=== PATIENT | female | born 1945 | race Hispanic/Latino ===

== ENCOUNTER 2020-12-24 19:40 | Emergency (ER) | payer OTHER ==
--- OUTSIDE RECORDS SUMMARY | 2020-12-24 19:44 | XMS REPORT | Continuity of Care Document ---
:1945 Author Organization [facility] t Address [address] [place] [address] Care Team Providers Name Role Phone Randy AYALA Attending Clinician Problems This patient has no known problems. Allergies, Adverse Reactions, Alerts This patient has no known allergies or adverse reactions. Medications Ordered Filled Start Stop Current Ordering Indication Dosage Frequency Signature Comments Components Source Medication Medication Date Date Medication? Clinician (SIG) Name Name Triamcinolo Triamcinolo 2020-0 Yes [place] [address] [facility] ne ne 03-04 applicatio [facility] Acetonide Acetonide 00:00: n [facility] Keflex Keflex 2019-0 2020- No [place] [address] [facility] 03-04 [facility] Mupirocin Mupirocin 2019-0 2020- No [place] [address] [facility] 03-04 applicatio [facility] n [facility] 00 [facility] Triamcinolo Triamcinolo 2020-0 Yes [place] [address] [facility] ne ne 02-27 applicatio [facility] Acetonide Acetonide 00:00: n to Mem [facility]ria 00 affected l area Outpati ent Clinics Magnesium Magnesium 2019-0 2020- No [place] [address] [facility] Oxide Oxide 6-16 06-07 [facility] 00:[facility]: [facility]00 [facility] 00 [facility] l [facility] Meclizine Meclizine 2018- Yes [place] [address] [facility] HCl HCl 1-27 as needed [facility] Losartan Losartan Yes Na [place] [address] [facility] Potassium Potassium [facility] Omeprazole Omeprazole Yes Na [place] TOME EDISON [facility] CAPSULA [facility] - TODOS LOS [facility] CARMONA l [facility] Yes Na [place] INJECT [address] [facility] [facility] KwikPen KwikPen UNITS [facility] - UNDER THE Memoria SKIN l DAILY. Outpati ent Clinics Cymbalta Cymbalta Yes Na [place] [address] [facility] Yes Na [place] [address] [facility] Gabapentin Gabapentin Yes Na [place] TOME [address] [facility] CAPSULA [facility] - POR VIA Memoria ORAL MICHAEL l [facility] Yes Na [place] [address] [facility] KwikPen KwikPen [facility] Metformin Metformin Yes Na [place] [address] [facility] HCl HCl with a [facility] - meal [facility] Atorvastati Atorvastati Yes Na [place] [address] [facility] n Calcium n Calcium [facility] BD Pen BD Pen Yes Na [facility] as [facility] Needle Aura Needle Aura directed [facility] - 2nd Gen 2nd Gen [facility] Mirtazapine Mirtazapine Yes Na [place] [address] [facility] at bedtime [facility] Omeprazole Omeprazole Yes Na [place] [address] [facility] Immunizations Ordered Filled Immunization Date Status Comments [facility] e Immunization Name Name FluCHAPARRO FluAD 2019-03-[address] [facility] Procedures This patient has no known procedures. Encounters Start End Encounter Admission Attending Care Care Encounter Source Date/Time Date/Time Type Type Clinicians Facility Department ID 2020-12-22 2020-12-22 Refill Padilla, RUST [id number] 00:00:00 00:00:00 [place] [id number] IALTY [id number] ANIAK [id number] [facility] 2020-11-20 2020-11-20 [facility] [id number] [facility] 2020-11-19 2020-11-19 [facility] [id number] 2020-11-14 2020-11-14 [facility] [id number] [facility] 2020-09-17 2020-09-17 Refdeniz Padilla, RUST [id number] 00:00:00 00:00:00 [id number] [facility] [id number] ANIAK [id number] AND DONOR[facility] 2020-09-12 2020-09-12 Out[facility] [id number] [facility] 2020-09-08 2020-09-08 Out[facility] [id number] [facility] 2020-09-04 2020-09-04 Out[facility] [id number] [facility] 2020-08-26 2020-08-26 Refdeniz Padilla, RUST [id number] 00:00:00 00:00:00 Zully Wheeler [id number] [place] [id number] [id number] 220 Building 2020-08-26 2020-08-26 [facility] [id number] [facility] 2020-06-18 2020-06-18 Out[facility] [id number] [facility] 2020-06-16 2020-06-16 [facility] [id number] [facility] 2020-06-10 2020-06-10 [facility] [id number] [facility] 2020-03-25 2020-03-25 [facility] [id number] [facility] 2020-03-11 2020-03-11 [facility] [id number] 13:20:00 13:20:00 [employer] [facility] l Medicine Outpati ent Clinics 2020-03-04 2020-03-04 [facility] [id number] 16:36:00 16:36:00 [employer] [facility] Medicine l Medicine Outpati ent Clinics 2020-02-28 2020-02-28 [facility] [id number] [address] 08:40:00 08:40:00 [employer] [facility] Medicine l Medicine Outpati ent Clinics 2020-01-25 2020-01-25 [facility] [id number] 16:10:00 16:10:00 [employer] [facility] l Medicine Outpati ent Clinics 2019-12-13 2019-12-13 [facility] [id number] 02:32:00 02:32:00 [employer] [facility] Medicine l Medicine Outpati ent Clinics 2019-11-23 2019-11-23 [facility] [id number] [address] 16[facility]59:00 16:59:00 [employer] [facility] Medicine l Medicine Outpati ent Clinics 2019-08-03 2019-08-03 [facility] [id number] 13:00:00 13:00:00 [employer] [facility] Clin[facility] 2019-07-27 2019-07-27 [facility] [id number] 09:30:00 09:30:[address] Luke s - Drive [facility] Medicine l Medicine Outpati ent Clinics 2019-06-15 2019-06-15 [facility] [id number] 15:53:00 15:53:[address] Luke s - Drive [facility] Medicine l Medicine Outpati ent Clinics 2019-06-07 2019-06-07 [facility] [id number] [address] 10:14:00 10:14:00 t [place] [employer] Luke s - Drive [facility] Medicine l Medicine Outpati ent Clinics 2019-05-03 2019-05-03 [facility] [id number] [address] 10:40:00 10:40:00 t [employer] Luke s - Drive [facility] Medicine l Medicine Outpati ent Clinics 2019-04-24 2019-04-24 [facility] [id number] [address] 09:53:00 09:53:00 t [employer] Luke s - Drive [facility] Medicine l Medicine Outpati ent Clinics 2019-04-11 2019-04-11 [facility] [id number] 13:55:00 13:55:00 t [employer] [employer] Luke s - Drive [facility] Medicine l Medicine Outpati ent Clinics 2019-03-16 2019-03-16 [facility] [id number] [address] 09:40:00 09:40:00 t [employer] [employer] Luke s - Drive [facility] Medicine l Medicine Outpati ent Clinics 2019-03-07 2019-03-07 [facility] [id number] 09:54:00 09:54:00 t [employer] [employer] Luke s - Drive [facility] Medicine l Medicine Outpati ent Clinics 2019-01-31 2019-01-31 [facility] [id number] 16:23:00 16:23:00 t [employer] Luke s - Drive [facility] Medicine l Medicine Outpati ent Clinics 2018-12-25 2018-12-25 [facility] [id number] 16:40:00 16:40:00 t Underwood [employer] s - Drive [facility] Medicine Outpati ent Clinics 2018-08-21 2018-08-21 [facility] [id number] 09:30:00 09:30:00 t Urgent [facility] Outpat[facility] Clinics 2018-07-27 2018-07-27 [facility] [id number] [address] 10:22:00 10:22:00 t [facility] Outpati ent Clinics 2018-06-29 2018-06-29 [facility] [id number] 13:35:00 13:35:00 [facility] Outpati ent Clinics 2018-06-07 2018-06-07 [facility] [id number] [facility] 13:16:00 13:16:00 t [facility] Outpati ent Clinics 2018-05-23 2018-05-23 [facility] [id number] [facility] 09:30:00 09:30:00 t [facility] Outpati ent Clinics Results This patient has no known results.
[2020-12-24 22:04] LABS: Basophils % 0.5 % (0-1.3); Hematocrit 31.7 % (36.0-45.0); MPV 8.3 fL (7.6-11.3); RBC Red Blood Cell Count 3.65 M/uL (3.86-4.86)
[2020-12-24] MEDS ORDERED: NA CHLORIDE 0.9% 1,000 ML ONE ×2 (22:10→23:08)
[2020-12-24 22:25] LABS: Albumin 3.3 g/dL (3.4-5.0); Bilirubin Direct 0.2 mg/dL (0-0.2); Bilirubin Total 0.6 mg/dL (0.2-1.0)
[2020-12-24] MEDS ORDERED: INSULIN -REGULAR HUMAN 50 UNIT/0.5 ML ML ONE (23:08)
[2020-12-24 23:09] LABS: Blood Morphology Comment NOT SEEN (NOT SEEN); Platelet Estimate ADEQ
--- NOTE | 2020-12-25 01:28 | ER ---
Nurse's Notes [facility] Name: Karina Jimenez Age: 75 yrs Sex: Female : 1945 Arrival Date: 12/24/2020 Time: 19:42 Bed 6 Private MD: Diagnosis: Diabetes mellitus due to underlying condition with hyperglycemia Presentation: 12/24 19:56 Chief complaint: Patient's son or daughter states: hyperglycemia, non-compliant, FSBS bs2 at home 478. Coronavirus screen: Client denies travel out of the [place] in the last 14 days. At this time, the client does not indicate any symptoms associated with coronavirus-19. Ebola Screen: Patient negative for fever greater than or equal to 101.5 degrees Fahrenheit, and additional compatible Ebola Virus Disease symptoms Patient denies exposure to infectious person. Patient denies travel to an Ebola-affected area in the 21 days before illness onset. Initial Sepsis Screen: Does the patient meet any 2 criteria? No. Patient's initial sepsis screen is negative. Does the patient have a suspected source of infection? No. Patient's initial sepsis screen is negative. Risk Assessment: Do you want to hurt yourself or someone else? Patient reports no desire to harm self or others. Onset of symptoms is unknown. 19:56 Method Of Arrival: EMS: [facility] bs2 19:56 Acuity: JESICA 3 bs2 Triage Assessment: 19:59 General: Appears in no apparent distress. comfortable, Behavior is calm, cooperative, bs2 appropriate for age. Pain: Denies pain. Historical: - Allergies: 19:59 No Known Allergies; bs2 - Home Meds: 19:59 atorvastatin Oral [Active]; duloxetine Oral [Active]; losartan Oral [Active]; Metformin bs2 Oral [Active]; Omeprazole Oral [Active]; Tylenol #3 Oral [Active]; Basaglar KwikPen U-100 Insulin 100 unit/mL (3 mL) subcutaneous inpn [Active]; - PMHx: 19:59 Diabetes - IDDM; Hyperlipidemia; Hypertension; depression; bs2 - PSHx: 19:59 Cholecystectomy; bs2 - Immunization history:: Client reports receiving the 2nd dose of the Covid vaccine. - Social history:: Smoking status: Patient denies any tobacco usage or history of. - Family history:: not pertinent. Screenin:10 Abuse screen: Denies threats or abuse. Nutritional screening: No deficits noted. ea Tuberculosis screening: No symptoms or risk factors identified. Fall Risk None identified. Assessment: 22:11 General: Appears in no apparent distress. Behavior is calm, cooperative, appropriate ea for age. Pain: Denies pain. Neuro: Level of Consciousness is awake, alert, obeys commands, Oriented to person, place, situation. Cardiovascular: Patient's skin is warm and dry. Respiratory: Airway is patent Respiratory effort is even, unlabored, Respiratory pattern is regular, symmetrical. Derm: Skin is pink, warm \T\ dry. 23:10 Reassessment: Patient and/or family updated on plan of care and expected duration. Pain ea level reassessed. Patient is alert, oriented x 3, equal unlabored respirations, skin warm/dry/pink. 12/25 00:07 Reassessment: Patient and/or family updated on plan of care and expected duration. Pain ea level reassessed. Patient is alert, oriented x 3, equal unlabored respirations, skin warm/dry/pink. 01:30 Reassessment: Patient and/or family updated on plan of care and expected duration. Pain ea level reassessed. Patient is alert, oriented x 3, equal unlabored respirations, skin warm/dry/pink. 02:33 Reassessment: Patient and/or family updated on plan of care and expected duration. Pain ea level reassessed. Patient is alert, oriented x 3, equal unlabored respirations, skin warm/dry/pink. 02:47 Reassessment: Patient and/or family updated on plan of care and expected duration. Pain ea level reassessed. Patient is alert, oriented x 3, equal unlabored respirations, skin warm/dry/pink. Discharge instruction given to patient verbalized the understanding of instruction. Pt left ED via wheelchair per family, pt tolerating well. Vital Signs: 12/24 19:56 BP 103 / 47; Pulse 85; Resp 18; Temp 98.8; Pulse Ox 98% ; Weight 73.48 kg (R); Height 4 bs2 ft. 11 in. (149.86 cm) (R); Pain 0/10; 23:10 BP 102 / 44; Pulse 67; Resp 19; Pulse Ox 100% ; ea 12/25 00:32 BP 97 / 52; Pulse 67; Resp 18; Pulse Ox 99% ; ea 02:33 BP 105 / 65; Pulse 60; Resp 18; Pulse Ox 98% on R/A; ea 12/24 19:56 Body Mass Index 32.72 (73.48 kg, 149.86 cm) bs2 ED Course: 12/24 19:42 Patient arrived in ED. mw2 19:59 Triage completed. bs2 19:59 Arm band placed on left wrist. bs2 21:39 Agustina Hernandez MD is Attending Physician. ma2 21:45 Niyah Whittington RN is Primary Nurse. ea 22:11 Patient has correct armband on for positive identification. Bed in low position. Call ea light in reach. 22:11 Inserted saline lock: 20 gauge in right antecubital area, using aseptic technique. ea Blood collected. 22:42 Chest Single View XRAY In Process Unspecified. EDMS 22:45 CT Head Brain wo Cont In Process Unspecified. EDMS 12/25 02:33 No provider procedures requiring assistance completed. ea 02:47 IV discontinued, intact, bleeding controlled, No redness/swelling at site. Pressure ea dressing applied. Administered Medications: 12/24 22:10 Drug: NS 0.9% 1000 ml Route: IV; Rate: 1 bolus; Site: right antecubital; ea 12/25 02:32 Follow up: Response: No adverse reaction; IV Status: Completed infusion; IV Intake: ea 1000ml 12/24 22:57 Drug: Insulin Regular Human 7 units {Co-Signature: tl1 (Sharda Clark RN).} Route: IVP; ea Site: right antecubital; 12/25 02:32 Follow up: Response: No adverse reaction ea 12/24 22:57 Drug: NS 0.9% 1000 ml Route: IV; Rate: 1 bolus; Site: right antecubital; ea 12/25 01:30 Follow up: Response: No adverse reaction; IV Status: Completed infusion; IV Intake: ea 1000ml 02:32 Drug: Rocephin (cefTRIAXone) 1 grams Route: IV; Rate: calculated rate; Site: right ea antecubital; 02:47 Follow up: Response: No adverse reaction; IV Status: Completed infusion ea Intake: 01:30 IV: 1000ml; Total: 1000ml. ea 02:32 IV: 1000ml; Total: 2000ml. ea Outcome: 01:27 Discharge ordered by . ma2 02:47 Discharged to home via wheelchair, with family. ea 02:47 Condition: stable 02:47 Discharge instructions given to patient, Instructed on discharge instructions, follow up and referral plans. medication usage, Demonstrated understanding of instructions, follow-up care, medications, Prescriptions given X 1. 02:48 Patient left the ED. ea Signatures: Dispatcher [employer] EDNiyah Johnson, RN RN Agustina Spann MD MD ma2 Wendy Wright2 Patti Armstrong bs2 Sharda Clark RN tl1
--- NOTE | 2020-12-25 01:28 | EDPHYS ---
Physician Documentation [facility] Name: Karina Jimenez Age: 75 yrs Sex: Female : 1945 Arrival Date: 12/24/2020 Time: 19:42 Bed 6 Private MD: ED Physician Agustina Hernandez HPI: 12/24 23:29 This 75 yrs old Female presents to ER via EMS with complaints of High Blood ma2 Sugar. 23:29 Onset: The symptoms/episode began/occurred gradually, 1 day(s) ago. Associated signs ma2 and symptoms: Pertinent negatives: anorexia, diarrhea, ketones in urine, polydipsia. Current symptoms: In the emergency department the patient's symptoms have improved. The patient has experienced similar episodes in the past, not compliant on her medication . Historical: - Allergies: 19:59 No Known Allergies; bs2 - Home Meds: 19:59 atorvastatin Oral [Active]; duloxetine Oral [Active]; losartan Oral [Active]; Metformin bs2 Oral [Active]; Omeprazole Oral [Active]; Tylenol #3 Oral [Active]; Basaglar KwikPen U-100 Insulin 100 unit/mL (3 mL) subcutaneous inpn [Active]; - PMHx: 19:59 Diabetes - IDDM; Hyperlipidemia; Hypertension; depression; bs2 - PSHx: 19:59 Cholecystectomy; bs2 - Immunization history:: Client reports receiving the 2nd dose of the Covid vaccine. - Social history:: Smoking status: Patient denies any tobacco usage or history of. - Family history:: not pertinent. ROS: 23:29 Constitutional: Negative for fever, chills, and weight loss. ma2 23:29 All other systems are negative. Exam: 23:29 Constitutional: This is a well developed, well nourished patient who is awake, alert, ma2 and in no acute distress. Chest/axilla: Normal chest wall appearance and motion. Nontender with no deformity. No lesions are appreciated. Cardiovascular: Regular rate and rhythm with a normal S1 and S2. No gallops, murmurs, or rubs. Normal PMI, no JVD. No pulse deficits. Respiratory: Lungs have equal breath sounds bilaterally, clear to auscultation and percussion. No rales, rhonchi or wheezes noted. No increased work of breathing, no retractions or nasal flaring. Abdomen/GI: Soft, non-tender, with normal bowel sounds. No distension or tympany. No guarding or rebound. No evidence of tenderness throughout. MS/ Extremity: Pulses equal, no cyanosis. Neurovascular intact. Full, normal range of motion. Neuro: Awake and alert, GCS 15, oriented to person, place, time, and situation. Cranial nerves II-XII grossly intact. Motor strength 5/5 in all extremities. Sensory grossly intact. Cerebellar exam normal. Normal gait. Vital Signs: 19:56 BP 103 / 47; Pulse 85; Resp 18; Temp 98.8; Pulse Ox 98% ; Weight 73.48 kg (R); Height 4 bs2 ft. 11 in. (149.86 cm) (R); Pain 0/10; 23:10 BP 102 / 44; Pulse 67; Resp 19; Pulse Ox 100% ; ea 12/25 00:32 BP 97 / 52; Pulse 67; Resp 18; Pulse Ox 99% ; ea 02:33 BP 105 / 65; Pulse 60; Resp 18; Pulse Ox 98% on R/A; ea 12/24 19:56 Body Mass Index 32.72 (73.48 kg, 149.86 cm) 2 MDM: 12/24 22:09 Patient medically screened. [facility] 23:29 Differential diagnosis: diabetes insipidus, DKA, hyperglycemia, hypoglycemic episode. [facility] 12/25 01:25 Data reviewed: vital signs, nurses notes. Counseling: I had a detailed discussion with [facility] the patient and/or guardian regarding: the historical points, exam findings, and any diagnostic results supporting the discharge/admit diagnosis, the presence of at least one elevated blood pressure reading (>120/80) during this emergency department visit, the need for outpatient follow up. Response to treatment: the patient's symptoms have markedly improved after treatment. 12/24 21:39 Order name: Basic Metabolic Panel; Complete Time: 22:31 [facility] 12/24 21:39 Order name: CBC with Diff; Complete Time: 23:29 [facility] 12/24 21:39 Order name: Hepatic Function; Complete Time: 22:31 [facility] 12/24 21:39 Order name: Lipase; Complete Time: 22:31 [facility] 12/24 22:05 Order name: Manual Differential; Complete Time: 23:29 EDMS 12/24 22:10 Order name: Lactate; Complete Time: 01:27 ak2 12/24 22:10 Order name: CT Head Brain wo Cont [facility] 12/24 22:10 Order name: Chest Single View XRAY [facility] 12/24 22:10 Order name: Procalcitonin; Complete Time: 23:29 ak2 12/25 02:23 Order name: Urine Dipstick-Ancillary [facility] 12/25 02:41 Order name: Glucose, Ancillary Testing [facility] 12/24 21:39 Order name: IV Saline Lock; Complete Time: 22:10 ak2 12/24 21:39 Order name: Labs collected and sent; Complete Time: 22:10 [facility] 12/24 22:10 Order name: Urine Dipstick-Ancillary (obtain specimen); Complete Time: 02:47 [facility] Administered Medications: 12/24 22:10 Drug: NS 0.9% 1000 ml Route: IV; Rate: 1 bolus; Site: right antecubital; 12/25 02:32 Follow up: Response: No adverse reaction; IV Status: Completed infusion; IV Intake: ea 1000ml 12/24 22:57 Drug: Insulin Regular Human 7 units {Co-Signature: tl1 (Sharda Clark RN).} Route: IVP; Site: right antecubital; 12/25 02:32 Follow up: Response: No adverse reaction 12/24 22:57 Drug: NS 0.9% 1000 ml Route: IV; Rate: 1 bolus; Site: right antecubital; 12/25 01:30 Follow up: Response: No adverse reaction; IV Status: Completed infusion; IV Intake: ea 1000ml 02:32 Drug: Rocephin (cefTRIAXone) 1 grams Route: IV; Rate: calculated rate; Site: right ea antecubital; 02:47 Follow up: Response: No adverse reaction; IV Status: Completed infusion ea Disposition Summary: 12/25/20 01:27 Discharge Ordered Location: Home ma2 Condition: Stable ma2 Diagnosis - Diabetes mellitus due to underlying condition with hyperglycemia ma2 Followup: ma2 - With: Private Physician - When: Tomorrow - Reason: If symptoms return, Continuance of care Discharge Instructions: - Discharge Summary Sheet ma2 - Hyperglycemia ma2 Forms: - Medication Reconciliation Form ma2 - Thank You Letter ma2 - Antibiotic Education ma2 - Prescription Opioid Use ma2 Prescriptions: - Bactrim DS 800-160 mg Oral Tablet - take 1 tablet by ORAL route every 12 hours for 5 days; 10 tablet; Refills: 0, ma2 Product Selection Permitted Signatures: Dispatcher [employer] Niyah Khoury, RN RN Agustina Spann MD MD ma2 Patti Armstrong 2 Sharda Clark RN tl1
[2020-12-25 02:24] LABS: Urine Blood Trace-intact (Negative); Urine Glucose 2+ (Negative); Urine Protein 2+ (Negative); Urine Specific Gravity 1.015 (1.005-1.030)
[2020-12-25] MEDS ORDERED: CEFTRIAXONE/SWI 1gm 1 GM/10 ML SYR ONE (02:46)
[2020-12-25 03:08] VITALS: TEMP 98.8
[2020-12-25 03:11] VITALS: BP 105/65; O2SAT 98
--- NOTE | 2020-12-25 09:04 | RAD REPORT ---
EXAM DESCRIPTION: RAD - Chest Single View - 12/24/2020 10:42 pm CLINICAL HISTORY: CONGESTION Chest pain. COMPARISON: <Comparisons> FINDINGS: Portable technique limits examination quality. Mild linear atelectasis is present in the left lung base laterally. The lungs are otherwise clear. Th e heart is upper limit of normal in size. No displaced fractures.
--- NOTE | 2020-12-25 10:27 | RAD REPORT ---
EXAM DESCRIPTION: CT HEAD WITHOUT IV CONTRAST CLINICAL HISTORY: CONFUSED TECHNIQUE: Contiguous axial CT images obtained through the brain without IV contrast. Coronal and sa gittal reformatted images were provided. This exam was performed according to our departmental dose-optimization program, which includes autom ated exposure control, adjustment of the mA and/or kV according to patient size and/or use of iterati ve reconstruction technique. COMPARISON: 10/16/2016 FINDINGS: Brain: Mild cerebral atrophy and mild bilateral periventricular and subcortical white deidra er low-attenuation most compatible with chronic microvascular angiopathy without significant interval change. No focal mass effect. Jackson-white matter differentiation is within normal limits. No hemorrha ge. Ventricles: No ventriculomegaly or midline shift. Extra-axial spaces: No extra-axial collection or hemorrhage. Paranasal sinuses and mastoid air cells: Well-aerated Vessels: There is atherosclerotic disease of the internal carotid arteries bilaterally and right vert ebral artery. Bones: Unremarkable Soft tissues: Unremarkable IMPRESSION: 1. No acute hemorrhage, focal mass or large territory infarction. 2. Other findings as above. Electronically signed by: Rodrigo Poon MD 12/24/2020 11:04 PM CDT Due to temporary technical issues with the PACS/Fluency reporting system, reports are being signed by the in house radiologist without review as a courtesy to ensure prompt reporting. The interpreting r adiologist is fully responsible for the content of the report.
== END 2020-12-25 02:48 | disposition home or self-care (01) ==
LOC: ER 19:40
DX: E11.65 Type 2 diabetes mellitus with hyperglycemia (principal); Z79.4 Long term (current) use of insulin; I10 Essential (primary) hypertension
CPT/HCPCS: 96361; 85025; 80048; 36415; 82947; 80076; 83605; 81003; 83690; 84145; 70450; 71045; 96375; 96374; 99284; J0696; J7030 ×2

== ENCOUNTER 2021-12-13 17:24 | Emergency (ER) | payer OTHER ==
--- OUTSIDE RECORDS SUMMARY | 2021-12-13 17:28 | XMS REPORT | Continuity of Care Document ---
:1945 Author Organization [facility] t Address [address] [place] [address] Care Team Providers Name Role Phone Nancy Meadows Primary Care Physician Susy Meadows Attending Clinician Unavailable Daniel NGO Attending Clinician Doctor Unassigned, Name Attending Clinician Unavailable Randy AYALA Attending Clinician Payers Payer Name Policy Type Policy Number Effective Date Expiration Date S ource Problems Condition Condition Condition Status Onset Resolution Last Treating Co mments Source Name Details Category Date Date Treatment Clinician Date Dyslipidem Dyslipidem Disease Active 2018 U nivers ia ia 3-19 ity of 00:00: [address] Essential Essential Disease Active Uni vers hypertensi hypertensi 3-19 it y of on on 00:00: [address] Type 2 Type 2 Disease Active 2016-06 Univers diabetes, diabetes, 1-15 ity of uncontroll uncontroll [place], with 00 Medica l neuropathy neuropathy Br anch Allergies, Adverse Reactions, Alerts This patient has no known allergies or adverse reactions. Social History Social Habit Start Date Stop Date Quantity Comments Source Exposure to 2021-11-24 2021-12-[address] [facility]-CoV-2 00:00:00 14:12:00 [facility] (event) Branch Alcohol intake 2021-10-16 2021-10-16 Lifetime University of 00:00:00 00:00:00 non-drinker [place] [facility] (finding) Branch Tobacco use and 2017-05-11 2017-05-11 Never used Universit y of exposure 00:00:00 00:00:00 [facility] Sex Assigned At [birth year] Universit y of 00:00:00 00:00:00 [facility] Smoking Status Start Date Stop Date Source Never smoker [facility] Branch Medications Ordered Filled Start Stop Current Ordering Indication Dosage Frequency Signature Comments Components Source Medication Medication Date Date Medication? Clinician (SIG) Name Name losartan 2021- No 100mg Take 100 Uni vers 100 mg 6-10 06-10 mg by ity of tablet 14:38: 00:00 mouth [place] 18 :00 daily. Medical Branch gabapentin Yes 100mg Take 100 Un abhijit 100 mg 6-10 mg by ity of capsule 14:33: mouth 3 [place] 18 (three) Medical times Branch daily. gabapentin 0 Yes 100mg Take 100 Un abhijit 100 mg 6-10 mg by ity of capsule 14:33: mouth 3 [place] 18 (three) Medical times Branch daily. gabapentin Yes 100mg Take 100 Un abhijit 100 mg 6-10 mg by ity of capsule 14:33: mouth 3 [place] 18 (three) Medical times Branch daily. semaglutide Yes [id number] Inject 1 Univers (OZEMPIC) 1 6-10 mg weekly ity of mg/dose (4 00:00: [place] mg/3 mL) 00 Medical PnIj Branch Insulin Yes [id number] INJECT 72 U nivers Glargine 6-10 UNITS ity of (BASAGLAR 00:00: UNDER THE [place] KWIKPEN 00 SKIN Medical U-100 DAILY. Branch INSULIN) 100 unit/mL (3 mL) injection metFORMIN Yes [id number] Take one Univers 1,000 mg 6-10 tablet by ity of tablet 00:00: mouth [place] 00 daily with Medical breakfast Branch atorvastati Yes [id number] 20mg Take 1 Univers n 20 mg 6-10 tablet by ity of tablet 00:00: mouth at [place] 00 bedtime. Medical Branch losartan 2021-0 Yes [id number] 100mg Take 1 Un abhijit 100 mg 6-10 tablet by ity of tablet 00:00: mouth 00 daily. Medical Branch semaglutide Yes [id number] Inject 1 Univers (OZEMPIC) 1 6-10 mg weekly ity of mg/dose (4 00:00: [place] mg/3 mL) 00 Medical PnIj Branch Insulin Yes [id number] INJECT 72 U nivers Glargine 6-10 UNITS ity of (BASAGLAR 00:00: UNDER THE [place] KWIKPEN 00 SKIN Medical U-100 DAILY. Branch INSULIN) 100 unit/mL (3 mL) injection metFORMIN Yes [id number] Take one Univers 1,000 mg 6-10 tablet by ity of tablet 00:00: mouth 00 daily with Medical breakfast Branch atorvastati Yes [id number] 20mg Take 1 Univers n 20 mg 6-10 tablet by ity of tablet 00:00: mouth at [place] 00 bedtime. Medical Branch losartan Yes [id number] 100mg Take 1 Un abhijit 100 mg 6-10 tablet by ity of tablet 00:00: mouth daily. Medical Branch DICLOFENAC Yes [id number] APPLY 2 Univers SODIUM 1 % 5-23 GRAMS TO ity o f gel 00:00: AFFECTED 00 AREA(S) ON Medical SKIN DOS Branch VECES AL SHEEBA CUANDO SEA NECESARIO PARA EL DOLOR DICLOFENAC Yes [id number] APPLY 2 Univers SODIUM 1 % 5-23 GRAMS TO ity o f gel 00:00: AFFECTED 00 AREA(S) ON Medical SKIN DOS Branch VECES AL SHEEBA CUANDO SEA NECESARIO PARA EL DOLOR DICLOFENAC Yes [id number] APPLY 2 Univers SODIUM 1 % 5-23 GRAMS TO ity o f gel 00:00: AFFECTED 00 AREA(S) ON Medical SKIN DOS Branch VECES AL SHEEBA CUANDO SEA NECESARIO PARA EL DOLOR Nitrofurant 2021- No [id number] 100mg Take 1 Univers oin&Nit. 4-19 06-10 capsule by ity of Macrocryst 00:00: 00:00 mouth 2 [place] (MACROBID) 00 :00 (two) Medical 100 mg times Branch capsule daily. semaglutide 2021- No [id number] inject 1 Univers (OZEMPIC) 1 4-07 06-10 mg base ity of mg/dose (4 00:00: 00:00 [place] mg/3 mL) 00 :00 skin Medical PnIj weekly. Branch omeprazole 2020-06 Yes 20mg Take 20 mg U nivers 20 mg 0-15 by mouth ity of capsule 15:03: daily. [address] omeprazole 2020-06 Yes 20mg Take 20 mg U nivers 20 mg 0-15 by mouth ity of capsule 15:03: daily. [address] omeprazole 2020-06 Yes 20mg Take 20 mg U nivers 20 mg 0-15 by mouth ity of capsule 15:03: daily. [address] DULoxetine 2020-06 Yes 30mg Take 30 mg U nivers 30 mg 0-15 by mouth ity of capsule 15:03: daily. [address] DULoxetine 2020-06 Yes 30mg Take 30 mg U nivers 30 mg 0-15 by mouth ity of capsule 15:03: daily. [address] DULoxetine 2020-06 Yes 30mg Take 30 mg U nivers 30 mg 0-15 by mouth ity of capsule 15:03: daily. [address] mirtazapine 2020-06 Yes [id number] 15mg Take 15 mg Univers 15 mg 0-15 by mouth ity of tablet 15:03: at [place] [address] bedtime. [facility] mirtazapine 2020-06 Yes [id number] 15mg Take 15 mg Univers 15 mg 0-15 by mouth ity of tablet 15:03: at [place] [address] bedtime. [facility] mirtazapine 2020-06 Yes [id number] 15mg Take 15 mg Univers 15 mg 0-15 by mouth ity of tablet 15:03: at [place] [address] bedtime. [facility] aspirin 81 2020-06 Yes [id number] 81mg Take 81 mg Univers mg chewable 0-15 by mouth ity of tablet 15:03: daily. [address] aspirin 81 2020-06 Yes [id number] 81mg Take 81 mg Univers mg chewable 0-15 by mouth ity of tablet 15:03: daily. [address] aspirin 81 2020-06 Yes [id number] 81mg Take 81 mg Univers mg chewable 0-15 by mouth ity of tablet 15:03: daily. [place] 10 Medical Branch Insulin 2020-06- No [id number] INJECT 68 Univers Glargine 0-15 06-10 UNITS ity of (BASAGLAR 00:00: 00:00 [place] KWIK[place]EN 00 :00 SKIN Medical U-100 DAILY. Branch INSULIN) 100 unit/mL (3 mL) injection metFORMIN 2020-06- No Take one Uni vers 1,000 mg 0-15 06-10 tablet by ity o f tablet 00:00: 00:00 mouth [place] 00 :00 daily with Medical breakfast Branch magnesium 2020-0 Yes 400mg Take 400 Uni vers oxide 400 9-03 mg by ity of mg (241.3 13:20: mouth [place] mg 06 daily. Medical magnesium) Branch tablet magnesium 0 Yes 400mg Take 400 Uni vers oxide 400 9-03 mg by ity of mg (241.3 13:20: mouth [place] mg 06 daily. Medical magnesium) Branch tablet magnesium 0 Yes 400mg Take 400 Uni vers oxide 400 9-03 mg by ity of mg (241.3 13:20: mouth [place] mg 06 daily. Medical magnesium) Branch tablet flash Yes 1{each} 1 Each Univers glucose 9-03 daily. Dx ity of scanning 00:00: E11.65 [place] reader 00 Medical (FREESTYLE Branch RAMÓN 2 READER) Misc flash 2020- Yes 1{each} Apply 1 Univer s glucose 9-03 Each to ity of sensor 00:00: skin every (FREESTYLE 00 14 Medical RAMÓN 2 (fourteen) Branch SENSOR) Kit days. Dx E11.65 flash 2020-0 Yes 1{each} 1 Each Univers glucose 9-03 daily. Dx ity of scanning 00:00: E11.65 [place] reader 00 Medical (FREESTYLE Branch RAMÓN 2 READER) Misc flash 2020-0 Yes 1{each} Apply 1 Univer s glucose 9-03 Each to ity of sensor 00:00: skin every [place] (FREESTYLE 00 14 Medical RAMÓN 2 (fourteen) Branch SENSOR) Kit days. Dx E11.65 flash 2020-0 Yes 1{each} 1 Each Univers glucose 9-03 daily. Dx ity of scanning 00:00: E11.65 [place] reader 00 Medical (FREESTYLE Branch RAMÓN 2 READER) Misc flash 2021-0 Yes 1{each} Apply 1 Univer s glucose 03 Each to ity of sensor 00:00: skin every (FREESTYLE 00 14 Medical RAMÓN 2 (fourteen) Branch SENSOR) Kit days. Dx E11.65 atorvastati 2020-0 2021- No 20mg Take 1 Uni vers n 20 mg 716 06-10 tablet by ity of tablet 00:00: 00:00 mouth at [place] 00 :00 bedtime. Medical Branch [facility] 2019-0 Yes Na Meadows 1 Common ne ne 03-04 applicatio Spirit Acetonide Acetonide 00:00: n - C HI 00 [facility] Keflex Keflex 2019-0 2020- No Na Meadows 1 capsule Common 03-04 Spirit 00:00: 00:00 - CHI 00 :00 [facility] Mupirocin Mupirocin 2019-0 2020- No Na Meadows 1 Common 03-04 applicatio Spirit 00:00: 00:00 n - CHI 00 :00 [facility] 2019-0 Yes Na Meadows 1 Common ne ne 02-27 applicatio Spirit Acetonide Acetonide 00:00: n to - C HI 00 affected [facility] Insulin 2020-0 Yes [id number] Use as Univ ers [place], 8-04 directed ity of Disposable, 00:00: [place] (SURYA PEN E11.9 Medical NEEDLE) 32 Branch gauge x 5/32" Ndle Insulin 2020-0 Yes [id number] Use as Univ ers [place], 8-04 directed ity of Disposable, 00:00: daily [place] (SURYA PEN E11.9 Medical NEEDLE) 32 Branch gauge x 5/32" Ndle Insulin 2020-0 Yes [id number] Use as Univ ers [place], 8-04 directed ity of Disposable, 00:00: daily [place] (SURYA PEN E11.9 Medical NEEDLE) 32 Branch gauge x 5/32" Ndle Magnesium Magnesium 2020-0 2020- No Na Meadows 1 tablet Common Oxide Oxide 6-16 12-12 Spirit 00:00: 00:00 - CHI 00 :00 [facility] Lancets 2018-1 Yes Use as Univers Misc 1-30 directed ity of 00:00: TID DX: [place] 00 E11.9 Medical Branch Lancets 2018- Yes Use as Univers Misc 1-30 directed ity of 00:00: TID DX: [place] E11.9 Medical Branch Lancets 2018- Yes Use as Univers Misc 1-30 directed ity of 00:00: TID DX: [place] E11.9 Medical Branch Meclizine Meclizine 2018- Yes Na Meadows 1 tablet Common HCl HCl 1-27 as needed Spirit 00:00: - CHI 00 [facility] Losartan Losartan Yes Na Meadows 1 tablet Common Potassium Potassium Spiri [facility] Omeprazole Omeprazole Yes Na Meadows TOME EDISON Common CAPSULA Spirit TODOS [facility] Yes Na Meadows INJECT 60 Common KwikPen KwikPen UNITS Spirit UNDER THE - CHI SKIN [facility] Cyalta Yes Na Meadows 1 capsule Common [facility] Yes Na Meadows 1 Common [facility] Gabapentin Gabapentin Yes Na Meadows TOME 1 Common CAPSULA Spirit POR VIA - CHI ORAL MICHAEL St VECES [facility] Yes Na Meadows 62 units Common KwikPen KwikPen [facility] Metformin Metformin Yes Na Meadows 1 tablet Common HCl HCl with a Spirit meal [facility] Atorvastati Atorvastati Yes Na Meadows 1 tablet Common n Calcium n Calcium Spiri [facility] BD Pen BD Pen Yes Na Meadows as Common Needle Surya Needle Surya directed Spirit 2nd Gen 2nd Gen [facility] Mirtazapine Mirtazapine Yes Na Meadows 1 tablet Common at bedtime [facility] Omeprazole Omeprazole Yes Na Meadows 1 capsule Common [facility] Immunizations Ordered Filled Immunization Date Status Comments Sour e Immunization Name Name SARS-COV-2 COVID-19 2020-07-30 Completed Unive rsity of MODERNA VACCINE 00:00:00 [facility] SARS-COV-2 COVID-19 2020-07-30 Completed Unive rsity of MODERNA VACCINE 00:00:00 [place] Med ical Branch SARS-COV-2 COVID-19 2020-07-30 Completed Unive rsity of MODERNA VACCINE 00:00:00 [facility] Branch SARS-COV-2 COVID-19 2020-07-02 Completed Unive rsity of MODERNA VACCINE 00:00:00 [facility] Branch SARS-COV-2 COVID-19 2020-07-02 Completed Unive rsity of MODERNA VACCINE 00:00:00 [facility] Branch SARS-COV-2 COVID-19 2020-07-02 Completed Unive rsity of MODERNA VACCINE 00:00:00 [facility] FluAD FluAD 2019-03-16 Completed Common Spirit - 00:00:00 [facility] Vital Signs Vital Name Observation Time Observation Value Comments Source Systolic blood 2021-12-04 19:23:00 109 mm[Hg] Univer sity [facility] Diastolic blood 2021-12-04 19:23:00 71 mm[facility]Hg] [facility] Body height 2021-12-04 19:23:[address] [facility] Body weight 2021-12-04 19:23:[address] [facility] BMI 2021-12-04 19:23:00 36.10 kg/m2 [facility] Oxygen saturation 2021-12-04 19:23:00 96 /min [facility] in Arterial blood [facility] by Pulse oximetry Procedures Procedure Date / Time Performed Performing Clinician [facility] e POCT HEMOGLOBIN A1C 2021-12-04 19:29:00 Mely Sanchez [facility] TEST [facility] PHYSICIAN ORDERS 2021-11-19 05:01:00 Doctor Unassigned, No Unive rsity of [facility] Encounters Start End Encounter Admission Attending Care Care Encounter Source Date/Time Date/Time Type Type Clinicians Facility Department ID 2021-10-20 [id number] Common 09:42:01 [facility] 2021-10-13 [facility] [id number] Common 09:44:01 [facility] 2021-08-07 Outpatient Meadows, Na STLMLC STLMLC [id number] 2 Common 11:32:00 [facility] 2021-08-03 Outpatient Meadows, Na STLMLC STLMLC [id number] 2 Common 14:29:01 [facility] 2021-07-29 Outpatient Meadows, Na STLMLC STLMLC [id number] 2 Common 15:09:01 [facility] 2021-07-22 Outpatient Meadows, Na STLMLC STLMLC [id number] 2 Common 12:49:36 [id number] [facility] 2021-07-22 Outpatient Meadows, Na STLMLC STLMLC [id number] 2 Common 12:43:02 [id number] [facility] 2021-07-22 Outpatient Meadows, Na STLMLC STLMLC [id number] 2 Common 12:39:59 [id number] [facility] 2021-07-22 Outpatient Meadows, Na STLMLC STLMLC [id number] 2 Common 12:39:45 [id number] [facility] 2021-07-22 Outpatient Meadows, Na STLMLC STLMLC [id number] 2 Common 12:13:12 [id number] [facility] 2021-07-22 Outpatient Meadows, Na STLMLC STLMLC [id number] 2 Common 12:12:47 [id number] [facility] 2021-07-22 Outpatient Meadows, Na STLMLC STLMLC [id number] 2 Common 11:46:09 [id number] [facility] 2021-07-22 Outpatient Meadows, Na STLMLC STLMLC [id number] 2 Common 11:45:18 [id number] [facility] 2021-07-22 Outpatient Meadows, Na STLMLC STLMLC [id number] 2 Common 11:26:16 [id number] [facility] 2021-07-22 Outpatient Meadows, Na STLMLC STLMLC [id number] 2 Common 11:05:41 [id number] [facility] 2021-12-06 2021-12-06 [facility]phone [facility] [id number] Univers 00:00:00 00:00:00 [facility] [id number] ity of [place] [id number] [place] [id number] [facility] AND [place] [address] [place] [facility] 2021-12-04 2021-12-04 Office [facility] [id number] Univers 14:30:00 14:45:12 Visit [facility] [id number] it y of [place] [id number] [place] as PERFECTO?BLEA [id number] Vt dical [facility] [address] [place] [facility] 2021-11-19 2021-11-19 Orders Doctor MARY [id number] Univers 00:00:00 00:00:00 Only Unassigned, ALLEN [id number] ity of [place] [facility] [id number] [place] [id number] [facility] 009 Branch 2021-09-09 2021-09-09 ambulatory STLMLC STLMLC [id number] Common 00:00:00 00:00:00 [facility] 2021-08-07 2021-08-07 ambulatory STLMLC STLMLC [id number] Common 00:00:00 00:00:00 [facility] 2021-08-03 2021-08-03 ambulatory STLMLC STLMLC [id number] Common 00:00:00 00:00:00 [facility] 2021-07-20 2021-07-20 ambulatory STLMLC STLMLC [id number] Common 00:00:00 00:00:00 [facility] 2021-05-20 2021-05-20 ambulatory STLMLC STLMLC [id number] Common 00:00:00 00:00:00 [facility] 2021-04-27 2021-04-27 ambulatory STLMLC STLMLC [id number] Common 00:00:00 00:00:00 [facility] 2021-04-15 2021-04-15 Outpatient STLMLC STLMLC [id number] Common 00:00:00 00:00:00 [facility] 2021-02-16 2021-02-16 Outpatient STLMLC STLMLC [id number] Common 00:00:00 00:00:00 [facility] 2021-01-12 2021-01-12 Outpatient STLMLC STLMLC [id number] Common 00:00:00 00:00:00 [facility] 2021-01-07 2021-01-07 Outpatient STLMLC STLMLC [id number] Common 00:00:00 00:00:00 [facility] 2020-12-31 2020-12-31 Outpatient STLMLC STLMLC [id number] Common 00:00:00 00:00:00 [facility] 2020-12-31 2020-12-31 Outpatient STLMLC STLMLC [id number] Common 00:00:00 00:00:00 [facility] 2020-12-25 2020-12-25 Outpatient STLMLC STLMLC [id number] Common 00:00:00 00:00:00 [facility] 2020-12-22 2020-12-22 Refdeniz Padilla, BRIDGETT [id number] 00 00:00:00 00:00:00 [facility] [id number] [place] [id number] [place] [id number] [facility] [place] [facility] 2020-11-20 2020-11-20 Outpatient STLMLC STLMLC [id number] Common 00:00:00 00:00:00 [facility] 2020-11-19 2020-11-19 Outpatient STLMLC STLMLC [id number] Common 00:00:00 00:00:00 [facility] 2020-11-14 2020-11-14 Outpatient STLMLC STLMLC [id number] Common 00:00:00 00:00:00 [facility] 2020-09-17 2020-09-17 Refill Padilla, WILMARMB [id number] 00:00:00 00:00:00 [facility] [id number] [place] [id number] [place] [phone] [facility] [place] [facility] 2020-09-12 2020-09-12 Outpatient STLMLC STLMLC [id number] Common 00:00:00 00:00:00 [facility] 2020-09-08 2020-09-08 Outpatient STLMLC STLMLC [id number] Common 00:00:00 00:00:00 [facility] 2020-09-04 2020-09-04 Outpatient STLMLC STLMLC [id number] Common 00:00:00 00:00:00 [facility] 2020-08-26 2020-08-26 [facility]ill [facility] [id number] 00:00:00 00:00:00 [place] [id number] [place] [id number] [facility] [phone] [facility] 220 [facility] 2020-08-26 2020-08-26 Outpatient STLMLC STLMLC [id number] Common 00:00:00 00:00:00 [facility] 2020-06-18 2020-06-18 Outpatient STLMLC STLMLC [id number] Common 00:00:00 00:00:00 [facility] 2020-06-16 2020-06-16 Outpatient STLMLC STLMLC [id number] Common 00:00:00 00:00:00 [facility] 2020-06-10 2020-06-10 Outpatient STLMLC STLMLC [id number] Common 00:00:00 00:00:00 [facility] 2020-03-25 2020-03-25 Outpatient STLMLC STLMLC [id number] Common 00:00:00 00:00:00 [facility] 2020-03-11 2020-03-11 [id number] Common 13:20:00 13:20:00 [employer] [facility] [employer] [facility] 2020-03-04 2020-03-04 [facility] [id number] Common 16:36:00 16:36:[address] [facility] 2020-02-28 2020-02-28 [facility] [id number] Common 08:40:00 08:40:[address] [facility] 2020-01-25 2020-01-25 [facility] [id number] Common 16:10:00 16:10:[address] [facility] 2019-12-13 2019-12-13 [facility] [id number] Common 02:32:00 02:32:[address] [facility] 2019-11-23 2019-11-23 [facility] [id number] Common 16:59:00 16:59:[address] [facility] 2019-08-03 2019-08-03 [facility] [id number] Common 13:00:00 13:00:[address] [facility] 2019-07-27 2019-07-27 [facility] [id number] Common 09:30:00 09:30:[address] [facility] 2019-06-15 2019-06-15 [facility] [id number] Common 15:53:00 15:53:[address] [facility] 2019-06-07 2019-06-07 [facility] [id number] Common 10:14:00 10:14:[address] [facility] 2019-05-03 2019-05-03 [facility] [id number] Common 10:40:00 10:40:[address] [facility] 2019-04-24 2019-04-24 [facility] [id number] Common 09:53:00 09:53:[address] [facility] 2019-04-11 2019-04-11 [facility] [id number] Common 13:55:00 13:55:[address] [facility] 2019-03-16 2019-03-16 [facility] [id number] Common 09:40:00 09:40:[address] [facility] 2019-03-07 2019-03-07 [facility] [id number] Common 09:54:00 09:54:[address] [facility] 2019-01-31 2019-01-31 [facility] [id number] Common 16:23:00 16:23:[address] [facility] 2018-12-25 2018-12-25 [facility] [id number] Common 16:40:00 16:40:[address] [facility] 2018-08-21 2018-08-21 [facility] [id number] Common 09:30:00 09:30:00 t [facility]gent [facility] 2018-07-27 2018-07-27 [facility] [id number] Common 10:22:00 10:22:[address] [facility] 2018-06-29 2018-06-29 [facility] [id number] Common 13:35:00 13:35:[address] [facility] 2018-06-07 2018-06-07 [facility] [id number] Common 13:16:00 13:16:[address] [facility] 2018-05-23 2018-05-23 [facility] [id number] Common 09:30:00 09:30:[address] [facility] Results Test Description Test Time Test Comments Results Result Comments Source POCT HEMOGLOBIN A1C TEST 2021-12-04 19:29:00 Test Item Value Reference Range Interpretation Comme nts POCT HBA1C (test code = 4548-4) 8.4 % 4-6 A Lab Interpretation (test code = 46088-9) Abnormal [facility]
[2021-12-13] MEDS ORDERED: HYDROCODONE/APAP 5/325 MG TAB ONE (17:58)
--- NOTE | 2021-12-13 18:40 | RAD REPORT ---
EXAM DESCRIPTION: RAD - Foot Right 3 View - 12/13/2021 6:17 pm CLINICAL HISTORY: PAIN COMPARISON: No comparisonsNo comparisons FINDINGS/IMPRESSION: No acute fracture. No malalignment. Plantar aspect calcaneal spurring.
--- NOTE | 2021-12-13 20:30 | EDPHYS ---
Physician Documentation [facility] Name: Karina Jimenez Age: 76 yrs Sex: Female : 1945 Arrival Date: 12/13/2021 Time: 17:27 Bed 14 Private MD: Sarah Meadows ED Physician Agustina Hernandez HPI: 12/13 17:53 This 76 yrs old Female presents to ER via Wheelchair with complaints of Foot pm1 Pain. 17:53 The patient presents with pain, that is acute. The complaints affect the medial aspect pm1 of right foot. Context: The problem was sustained at an unknown site, resulted from an unknown cause, the patient can fully bear weight, the patient is able to ambulate, Problem is a result from a previous injury: No. Onset: The symptoms/episode began/occurred 2 day(s) ago. Modifying factors: The symptoms are alleviated by elevating leg, the symptoms are aggravated by weight bearing. Associated signs and symptoms: Pertinent negatives numbness, swelling, tingling. Severity of symptoms: in the emergency department the symptoms are unchanged. The patient has not experienced similar symptoms in the past. The patient has not recently seen a physician. cough for the past 3 days without any chest pain, shortness of breath. Historical: - Allergies: 17:44 No Known Allergies; ll1 - PMHx: 17:44 Hyperlipidemia; Diabetes - IDDM; Hypertension; Depression; ll1 - PSHx: 17:44 Cholecystectomy; ll1 - Immunization history:: Client reports receiving the 2nd dose of the Covid vaccine. - Social history:: Smoking status: Patient denies any tobacco usage or history of. ROS: 17:53 Constitutional: Negative for fever, chills, and weight loss, Cardiovascular: Negative pm1 for chest pain, palpitations, and edema, Respiratory: Negative for shortness of breath, cough, wheezing, and pleuritic chest pain, Skin: Negative for injury, rash, and discoloration. 17:53 MS/extremity: Positive for pain, tenderness, of the medial aspect of right foot, Negative for decreased range of motion, deformity. 17:53 All other systems are negative. Exam: 17:53 Constitutional: This is a well developed, well nourished patient who is awake, alert, pm1 and in no acute distress. Head/Face: Normocephalic, atraumatic. 17:53 Skin: Warm, dry with normal turgor. Normal color with no rashes, no lesions, and no evidence of cellulitis. 17:53 Cardiovascular: Exam negative for acute changes, Rate: normal, Rhythm: regular, Pulses: no pulse deficits are appreciated. 17:53 Respiratory: Exam negative for acute changes, respiratory distress, shortness of breath, Breath sounds: are clear throughout. 17:53 Musculoskeletal/extremity: Extremities: grossly normal except: noted in the medial aspect of right foot: 17:53 Neuro: Exam negative for acute changes, Orientation: is normal, Mentation: is normal, Motor: is normal, moves all fours. Vital Signs: 17:45 BP 115 / 57; Pulse 93; Resp 18; Temp 98.0; Pulse Ox 98% ; Weight 81.65 kg; Height 5 ft. ll1 (152.40 cm); Pain 10/10; 20:44 BP 118 / 67; Pulse 80; Resp 18; Temp 97.8; Pulse Ox 100% ; ke1 17:45 Body Mass Index 35.15 (81.65 kg, 152.40 cm) ll1 MDM: 18:15 Patient medically screened. pm1 20:27 Data reviewed: vital signs. Data interpreted: Pulse oximetry: on room air is 98 %. pm1 Interpretation:. Counseling: I had a detailed discussion with the patient and/or guardian regarding: the historical points, exam findings, and any diagnostic results supporting the discharge/admit diagnosis, lab results, radiology results, the need for outpatient follow up, to return to the emergency department if symptoms worsen or persist or if there are any questions or concerns that arise at home. 12/13 17:52 Order name: COVID-19 SARS RT PCR (Document "Date of Onset" if Symptomatic); Complete pm1 Time: 20:24 12/13 17:52 Order name: Strep; Complete Time: 19:03 pm1 12/13 17:52 Order name: Foot Right 3 View XRAY; Complete Time: 19:03 pm1 12/13 17:52 Order name: Flu; Complete Time: 19:03 pm1 12/13 18:56 Order name: Throat Culture EDMS Administered Medications: 17:59 Drug: HYDROcodone-acetaminophen 5 mg-325 mg 1 tabs {Note: rass 0, pain 10/10.} Route: ll1 PO; 18:45 Follow up: Response: No adverse reaction ll1 Disposition Summary: 12/13/21 20:29 Discharge Ordered Location: Home pm1 Problem: new pm1 Symptoms: have improved pm1 Condition: Stable pm1 Diagnosis - Calcaneal spur, right foot pm1 Followup: pm1 - With: Emergency Department - When: As needed - Reason: Worsening of condition Followup: pm1 - With: Private Physician - When: 2 - 3 days - Reason: Recheck today's complaints, Continuance of care, Re-evaluation by your physician Discharge Instructions: - Discharge Summary Sheet pm1 - Heel Spur pm1 - Plantar Fasciitis pm1 Forms: - Medication Reconciliation Form pm1 - Thank You Letter pm1 - Antibiotic Education pm1 - Prescription Opioid Use pm1 Prescriptions: - Tylenol-Codeine #3 300 mg-30 mg Oral - take 1 tablet by ORAL route every 6 hours As needed; 12 tablet; Refills: 0, pm1 Product Selection Permitted Signatures: Dispatcher [employer] EDTremayne Chaidez NP INSURANCE EXECUTIVE pm1 Shea Akhtar, RN RN ll1
--- NOTE | 2021-12-13 20:30 | ER ---
Nurse's Notes [facility] Name: Karina Jimenez Age: 76 yrs Sex: Female : 1945 Arrival Date: 12/13/2021 Time: 17:27 Bed 14 Private MD: Sarah Meadows Diagnosis: Calcaneal spur, right foot Presentation: 12/13 17:45 Chief complaint: Patient states: 1. R inner foot pain since Tuesday night. No known ll1 trauma. No fever or redness. 2. Cough and sore throat for 3 days. No fever. Coronavirus screen: Vaccine status: Patient reports receiving the 2nd dose of the covid vaccine. Client denies travel out of the [place] in the last 14 days. cough unrelated to allergies, fatigue, headache, muscle pain, sore throat, Client presents with at least one sign or symptom that may indicate coronavirus-19. Standard/surgical mask placed on the client. Ebola Screen: Patient denies travel to an Ebola-affected area in the 21 days before illness onset. Initial Sepsis Screen: Does the patient meet any 2 criteria? No. Patient's initial sepsis screen is negative. Does the patient have a suspected source of infection? No. Patient's initial sepsis screen is negative. Risk Assessment: Do you want to hurt yourself or someone else? Patient reports no desire to harm self or others. Onset of symptoms was December 11, 2021. 17:45 Method Of Arrival: Wheelchair ll1 17:45 Acuity: JESICA 4 ll1 Triage Assessment: 17:49 General: Appears uncomfortable, ill, Behavior is cooperative, appropriate for age. ll1 Pain: Complains of pain in right foot Quality of pain is described as aching, throbbing, Aggravated by exercise, increased activity, weight bearing. EENT: Reports pain when swallowing. Respiratory: Reports cough that is. Musculoskeletal: Circulation, motion, and sensation intact. Capillary refill < 3 seconds, Reports pain in right foot. Historical: - Allergies: 17:44 No Known Allergies; ll1 - PMHx: 17:44 Hyperlipidemia; Diabetes - IDDM; Hypertension; Depression; ll1 - PSHx: 17:44 Cholecystectomy; ll1 - Immunization history:: Client reports receiving the 2nd dose of the Covid vaccine. - Social history:: Smoking status: Patient denies any tobacco usage or history of. Screenin:00 Abuse screen: Denies threats or abuse. Nutritional screening: No deficits noted. ll1 Tuberculosis screening: No symptoms or risk factors identified. Fall Risk Ambulatory Aid- Crutches/Cane/Walker (15 pts). Gait- Weak (10 pts.). Total Martell Fall Scale indicates Low Risk Score (25-44 pts). Fall prevention measures have been instituted. Frequent Obs/Assesments occuring Family Present and informed to notify staff if they need to leave bedside. Assessment: 18:31 Reassessment: No changes from previously documented assessment. Patient and/or family ll1 updated on plan of care and expected duration. Pain level reassessed. Patient is alert, oriented x 3, equal unlabored respirations, skin warm/dry/pink. Vital Signs: 17:45 BP 115 / 57; Pulse 93; Resp 18; Temp 98.0; Pulse Ox 98% ; Weight 81.65 kg; Height 5 ft. ll1 (152.40 cm); Pain 10/10; 20:44 BP 118 / 67; Pulse 80; Resp 18; Temp 97.8; Pulse Ox 100% ; ke1 17:45 Body Mass Index 35.15 (81.65 kg, 152.40 cm) ll1 ED Course: 17:27 Patient arrived in ED. mr 17:27 Sarah Meadows MD is Private Physician. mr 17:44 Arm band placed on. ll1 17:46 Tremayne Nye NP is PHCP. pm1 17:46 Agustina Hernandez MD is Attending Physician. pm1 17:49 Triage completed. ll1 18:00 Patient has correct armband on for positive identification. ll1 18:00 Flu Sent. ll1 18:00 Strep Sent. ll1 18:00 COVID-19 SARS RT PCR (Document "Date of Onset" if Symptomatic) Sent. ll1 18:18 Foot Right 3 View XRAY In Process Unspecified. EDMS 19:30 Carole Gutierrez, JONATHAN is Primary Nurse. ke1 20:44 No provider procedures requiring assistance completed. Patient did not have IV access ke1 during this emergency room visit. Administered Medications: 17:59 Drug: HYDROcodone-acetaminophen 5 mg-325 mg 1 tabs {Note: rass 0, pain 10/10.} Route: ll1 PO; 18:45 Follow up: Response: No adverse reaction ll1 Medication: 18:00 VIS not applicable for this client. ll1 Outcome: 20:29 Discharge ordered by MD. pm1 20:44 Discharged to home ambulatory. ke1 20:44 Condition: good 20:44 Discharge instructions given to patient. 20:45 Patient left the ED. ke1 Signatures: Dispatcher [employer] EDPA AdamMildred magallanes PopeyeTremayne, BARREL MAKER BARREL MAKER pm1 Shea Akhtar RN RN 1 Carole Gutierrez RN RN ke1
[2021-12-13 20:55] VITALS: BP 118/67; TEMP 97.8; O2SAT 100
== END 2021-12-13 20:45 | disposition home or self-care (01) ==
LOC: ER 17:24
DX: M77.31 Calcaneal spur, right foot (principal); I10 Essential (primary) hypertension; E11.9 Type 2 diabetes mellitus without complications; Z20.822 Contact with and (suspected) exposure to COVID-19
CPT/HCPCS: 87070; 87081; 87804 ×2; 73630; U0003

== ENCOUNTER 2025-02-10 10:56 | Emergency (ER) | payer OTHER ==
--- OUTSIDE RECORDS SUMMARY | 2025-02-10 11:07 | XMS REPORT | Continuity of Care Document ---
Author Name Unknown Address [address] [facility] [address] [place] [address] [facility] Address [address] [facility] 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 Role Phone Rasheeda Mead MD Primary Care Physician + [phone] Mira Muniz Attending Clinician Unavailable Sarah HYMAN Attending Clinician Unavailable ANASTASIA MANN Attending Clinician Unavailable RASHEEDA MEAD Attending Clinician Unavailable RASHEEDA MEAD Attending Clinician Unavailable Rasheeda Mead MD Attending Clinician [phone] Anastasia Mann MD Attending Clinician [phone] Allyn Franklin MD Attending Clinician [phone] Kevon [facility] Erin Qiu Attending Clinician + [phone] SILVIA EATON Attending Clinician Unavailab Silvia Jo Attending Clinician + [phone] Unknown, Attending Attending Clinician Unavailab LE Carroll Attending Clinician Unavailable Le Camarena Attending Clinician [phone] Maciej Llanes Attending Clinician Unavailable Willy Williamson MD Attending Clinician + [phone] WILLY WILLIAMSON Attending Clinician Unavailable ALLYN FRANKLIN Attending Clinician Unavailable ALLYN FRANKLIN Attending Clinician Unavailable Randy AYALA, Danelle Attending Clinician +[phone] Radha Shaffer MD Attending Clinician +[phone] Doctor Unassigned, [place] Attending Clinician U eloisa Mcdowell MD, Hieu Attending Clinician + [phone] Erin Davis Attending Clinician + [phone] Lab, Ang - Db Attending Clinician Unavailable Kira Puri Attending Clinician + Unknown, Attending Attending Clinician UnavailKIRA Carlin Attending Clinician Khris Padilla MD, Danelle Attending Clinician +[phone] Mely Curtis Attending Clinician UnavailERIN Santos Attending Clinician Unavailable Pob, [facility] Main Attending Clinician UnavailDANELLE Marie Attending Clinician Unavailable MELY OCAMPO Attending Clinician Unavailable CUBA BAUTISTA Attending Clinician Unavailable Cuba Mckinnon Attending Clinician +[phone] RADHA CUI III Attending Clinician Unavailfrederick Cui III, MD, James C Attending Clinician + PRICE SILVEIRA Attending Clinician Unavailable Price Rivera Attending Clinician [phone] Dipak Escobar Attending Clinician + [phone] DIPAK HAIR Attending Clinician Unavailable Nolberto Fraser PA-C Attending Clinician + [phone] NOLBERTO FRASER Attending Clinician Unavailable Elle Edge MD Attending Clinician +[phone], [facility] Attending Clinician Unavailable SHANIA RIGGS Attending Clinician Unavailable Perico Osman MD Attending Clinician + [phone] Mirna Warren MD Attending Clinician JOSHUA Drew Attending Clinician Unavaila ALLYN Velázquez Admitting Clinician Unavailable PRICE SILVEIRA Admitting Clinician Unavailable Payers Payer Name Policy Type Policy Number Effective Date Expirati on Date Source MEDICARE PART A \\T\\ B [id number] 2008 00:00:00 [place] [id number] 2013 00:00:00 MEDICARE [place] [id number] [facility] [id number] 2018 00:00:00 [facility] [id number] 2018 00:00:00 [facility] MEDICARE NOV[place]AS [id number] [facility] [id number] 2018 00:00:00 [facility] [id number] [facility] Problems Condition Name Condition Details Condition Category Status Onset Date Resolution Date Last Treatment Date Treating Clinician Comments Source Adjustment disorder with depressed mood Adjustment disorder with depressed mood Disease Active 02-04 00:00: 00 [facility] Allergic rhinitis Allergic rhinitis Disease Active 02-04 00:00: 00 [facility] Anxiety Anxiety Disease Active 02-04 00:00: 00 [facility] Elevated blood pressure reading with diagnosis of hypertensi on Elevated blood pressure reading with diagnosis of hypertensi on Disease Active 02-04 00:00: 00 [facility] Gastroesop hageal reflux disease Gastroesop hageal reflux disease Disease Active 02-04 00:00: 00 [facility] Grieving Grieving Disease Active 02-04 00:00: 00 [facility] High cholestero l High cholestero l Disease Active 02-04 00:00: 00 [facility] 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 Disease Active 02-04 00:00: 00 [facility] Memory impairment Memory impairment Disease Active 02-04 00:00: 00 [facility] 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 s Disease Active 02-04 00:00: 00 [facility] Personal history of urinary (tract) infections Personal history of urinary (tract) infections Disease Active 8-11 00:00: 00 [facility] 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 Disease Active 8-11 00:00: 00 [facility] Severe major depression Severe major depression Disease Active 8- 00:00: 00 [facility] Type 2 diabetes mellitus with hyperglyce charley Type 2 diabetes mellitus with hyperglyce charley Disease Active 8 00:00: 00 [facility] Depression Depression Disease Active 2023-06 00:00: 00 [facility] Need for vaccinatio n Need for vaccinatio n Disease Active 2023-06 00:00: 00 [facility] Vitamin D deficiency Vitamin D deficiency Disease Active 2023-06 00:00: 00 [facility] At risk for falls At risk for falls Disease Active 2022-06 2 00:00: 00 [facility] Unspecifie d abnormalit ies of gait and mobility Unspecifie d abnormalit ies of gait and mobility Disease Active 2022-06 215 00:00: 00 [facility] Unsteady gait when walking Unsteady gait when walking Disease Active 2022-06 215 00:00: 00 [facility] Recurrent urinary tract infection Recurrent urinary tract infection Disease Active 03-08 00:00: 00 [facility] Incontinen ce Incontinen ce Disease Active 03-08 00:00: 00 Overview: Formattin g of this note might be different from the original. Formattin g of this note might be different from the original. Likely overflow incontine nce Counseled on timed voiding and good DM control [facility] Dyslipidem ia Dyslipidem ia Disease Active 09-12 00:00: 00 [facility] Essential hypertensi on Essential hypertensi on Disease Active 09-12 00:00: 00 [facility] Heart disease Heart disease Disease Active 09-12 00:00: 00 [facility] Type 2 diabetes, uncontroll ed, with neuropathy Type 2 diabetes, uncontroll ed, with neuropathy Disease Active 2016-06 00:00: 00 [facility] Type 2 diabetes mellitus with diabetic autonomic neuropathy , 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 , with long-term current use of insulin Disease Active 2016-06 00:00: 00 [facility] Depression Depression Problem [facility] Hypertensi on HTN (hypertens ion) Problem [facility] Diabetes mellitus without complicati on Diabetes DMII without complicati ons Problem [facility] [id number] Type 2 diabetes mellitus with hyperglyce charley Problem [facility] Cardiac arrhythmia Abnormal heart rhythm Problem [facility] [id number] Type 2 diabetes mellitus without complicati ons Problem [facility] Allergies, Adverse Reactions, Alerts Allergy Name Allergy Type Status Severity Reaction(s) Onset Date Inactive Date Treating Clinician Comments Source NO KNOWN ALLERGIE S Drug Class Active [facility] Social History Social Habit Start Date Stop Date Quantity Comments Source Gender identity [facility] Sexual orientation [facility] ASSERTION Not [facility] History of Tobacco Use [facility] Sex Assigned At [facility] Alcoholic beverage intake 2025-02-04 00:00:00 2025-02-04 00:00:00 Lifetime non-drinker (finding) [facility] History of Social function 2024-08-24 00:00:00 2024-08-24 00:00:00 [facility] Alcohol intake 2023-10-11 00:00:00 2023-10-11 00:00:00 Lifetime non-drinker (finding) [facility] Exposure to SARS-CoV-2 (event) 2022-10-09 00:00:00 2022-10-19 13:32:00 Not sure [facility] Tobacco use and exposure 2022-06-30 00:00:00 2022-06-30 00:00:00 Smokeless tobacco non-user [facility] Smoking Status Start Date Stop Date Source Never smoked tobacco [facility] Medications Ordered Medication Name Filled Medication Name Start Date Stop Date Current Medication? Ordering Clinician Indication Dosage Frequency Signature (SIG) Comments Components Source meclizine 12.5 mg tablet 01-29 00:00: 00 Yes [id number] 12.5mg Take 1 tablet by mouth every 12 hours as needed for Dizziness or Nausea. [facility] Lancing Device with Lancets Kit 01-16 00:00: 00 Yes Use to check blood sugar TID E11.9 [facility] Lancing Device with Lancets Kit 01-14 00:00: 00 01-16 00:00 :00 No Use to check blood sugar [facility] meclizine 12.5 mg tablet 01-11 00:00: 00 01-27 00:00 :00 No [id number] 12.5mg Take 1 tablet by mouth every 12 hours as needed for Dizziness or Nausea. [facility] Insulin Seanor, Disposable, (BD AURA 2ND GEN PEN NEEDLE) 32 gauge x 5/32" Ndle 14 00:00: 00 Yes [id number] Use as directed [facility] tirzepatide (MOUNJARO) 7.5 mg/0.5 mL subcutaneou s injection pen 11-12 00:00: 00 Yes [id number] 7.5mg inject 7.5 mg under the skin weekly. [facility] semaglutide (OZEMPIC) 2 mg/dose (8 mg/3 mL) PnIj 11-12 00:00: 00 11-12 00:00 :00 No [id number] 2mg inject 2 mg under the skin weekly. [facility] lancets (ONETOUCH DELICA PLUS LANCET) 33 gauge Misc 10-25 00:00: 00 Yes [id number] Use 3 times daily. Dx e11.9 [facility] ONETOUCH VERIO TEST STRIPS strip 10-24 00:00: 00 Yes [id number] USE EMMANUEL LO INDICADO DOS VECES AL SHEEBA E11.65 [facility] semaglutide (OZEMPIC) 2 mg/dose (8 mg/3 mL) PnIj 10-24 00:00: 00 11-12 00:00 :00 No [id number] 2mg inject 2 mg under the skin weekly for 90 days. [facility] BASAGLAR KWIKPEN U-100 INSULIN 100 unit/mL (3 mL) injection 10-12 00:00: 00 Yes [id number] INJECTE 66 UNITS POR VIA SUBCUTANEA TODOS LOS CARMONA [facility] Insulin Glargine (BASAGLAR KWIKPEN U-100 INSULIN) 100 unit/mL (3 mL) injection 16 00:00: 00 10-12 00:00 :00 No [id number] INJECTE 66 UNITS POR VIA SUBCUTANEA TODOS LOS CARMONA [facility] BUSPIRONE 5 mg tablet 09-21 00:00: 00 Yes [id number] TOME 1 TABLETA POR VIA ORAL DOS VECES AL SHEEBA CUANDO SEA NECESARIO PARA LA ANSIEDAD [facility] fluconazole (DIFLUCAN) 150 mg tablet 06 00:00: 00 08-31 05:59 :00 No [id number] 150mg Take 1 tablet by mouth once now for 1 dose. [facility] busPIRone 5 mg tablet 08-24 00:00: 00 09-21 00:00 :00 No [id number] 5mg Take 1 tablet by mouth 2 (two) times daily as needed for Other (anxiety). [facility] semaglutide (OZEMPIC) 2 mg/dose (8 mg/3 mL) PnIj 1-24 00:00: 00 10-19 04:59 :00 No [id number] 2mg inject 2 mg under the skin weekly for 90 days. [facility] doxycycline hyclate 100 mg tablet 1-10 00:00: 00 07-17 05:59 :00 No [id number] 100mg Take 1 tablet by mouth 2 (two) times daily for 10 days. [facility] metFORMIN 1,000 mg tablet 2023-06 00:00: 00 Yes [id number] 1000mg Take 1 tablet by mouth daily with breakfast. [facility] BD AURA 2ND GEN PEN NEEDLE 32 gauge x 5/32" Ndle 2023-06- 00:00: 00 Yes [id number] USE EMMANUEL LO INDICADO [facility] MECLIZINE 12.5 mg tablet 2023-06 00:00: 00 01-11 00:00 :00 No [id number] TOME EDISON TABLETA POR VIA ORAL MICHAEL VECES AL SHEEBA CUANDO SEA NECESARIO FOR DIZZINESS [facility] BD AURA 2ND GEN PEN NEEDLE 32 gauge x 5/32" Ndle 2023-06 0 00:00: 00 01-07 00:00 :00 No [id number] USE EMMANUEL LO INDICADO [facility] Insulin Glargine (BASAGLAR KWIKPEN U-100 INSULIN) 100 unit/mL (3 mL) injection 2023-06 00:00: 00 10-10 00:00 :00 No [id number] INYECTE 66 UNITS POR VIA SUBCUTANEA TODOS LOS CARMONA [facility] Insulin Seanor, Disposable, (AURA PEN NEEDLE) 32 gauge x 5/32" Ndle 03-12 00:00: 00 04-10 00:00 :00 No [id number] USE DIRECTED DAILY [facility] Insulin Glargine (BASAGLAR KWIKPEN U-100 INSULIN) 100 unit/mL (3 mL) injection -09 00:00: 00 04-10 00:00 :00 No INYECTE 66 UNITS UNDER THE SKIN TODOS LOS CARMONA [facility] MECLIZINE 12.5 mg tablet -22 00:00: 00 04-10 00:00 :00 No [id number] TAKE 1 TABLET BY MOUTH 3 TIMES DAILY NEEDED FOR DIZZINESS. [facility] ONETOUCH DELICA PLUS LANCET 33 gauge Misc 11-24 00:00: 00 Yes [id number] USE EMMANUEL LO INDICADO DOS VECES AL SHEEBA E11.65 [facility] ONETOUCH DELICA PLUS LANCET 33 gauge Misc 11-24 00:00: 00 10-25 00:00 :00 No [id number] USE EMMANUEL LO INDICADO DOS VECES AL SHEEBA E11.65 [facility] Nitrofurant oin&Nit. Macrocryst (MACROBID) 100 mg capsule 11-13 00:00: 00 05-14 00:00 :00 No [id number] 100mg Take 1 capsule by mouth 2 (two) times daily. [facility] cephALEXin 500 mg capsule 11-09 00:00: 00 11-13 00:00 :00 No [id number] 500mg Take 1 capsule by mouth 2 (two) times daily. [facility] magnesium oxide 400 mg (241.3 mg magnesium) tablet 11-03 14:52: 12 Yes 400mg Take 1 tablet by mouth daily. [facility] aspirin 81 mg chewable tablet 11-03 14:52: 12 05-14 00:00 :00 No [id number] 81mg Take 1 tablet by mouth daily. [facility] semaglutide (OZEMPIC) 2 mg/dose (8 mg/3 mL) PnIj 11-03 00:00: 00 07-20 00:00 :00 No [id number] 2mg inject 2 mg under the skin weekly. [facility] metFORMIN 1,000 mg tablet 11-03 00:00: 00 05-14 00:00 :00 No [id number] 1000mg Take 1 tablet by mouth 2 (two) times daily with meals. [facility] meclizine 12.5 mg tablet 11-03 00:00: 00 01-15 00:00 :00 No [id number] 12.5mg Take 1 tablet by mouth 3 (three) times daily as needed for Dizziness. [facility] cephALEXin 500 mg capsule 4-16 00:00: 00 10-16 04:59 :00 No [id number] 500mg Take 1 capsule by mouth 2 (two) times daily for 5 days. [facility] BUPROPION 75 mg tablet -20 00:00: 00 Yes [id number] TOME EDISON TABLETA DOS VECES AL SHEEBA [facility] Insulin Glargine (BASAGLAR KWIKPEN U-100 INSULIN) 100 unit/mL (3 mL) injection 12 00:00: 00 03-05 00:00 :00 No INYECTE 66 UNITS UNDER THE SKIN NILA ALYS [facility] Insulin Seanor, Disposable, (AURA PEN NEEDLE) 32 gauge x 5/32" Ndle 3- 00:00: 00 03-12 00:00 :00 No [id number] Use as directed daily DX E11.9 [facility] buPROPion 75 mg tablet 3-11 00:00: 00 09-13 00:00 :00 No [id number] TOME EDISON TABLETA DOS VECES AL SHEEBA [facility] ONETOUCH VERIO TEST STRIPS strip 1-24 00:00: 00 Yes [id number] USE EMMANUEL LO INDICADO DOS VECES AL SHEEBA E11.65 [facility] ONETOUCH VERIO TEST STRIPS strip 1-24 00:00: 00 10-24 00:00 :00 No [id number] USE EMMANUEL LO INDICADO DOS VECES AL SHEEBA E11.65 [facility] omeprazole 20 mg capsule 2022-06 2-15 15:26: 46 06-10 00:00 :00 No 20mg Take 1 capsule by mouth daily. [facility] atorvastati n 10 mg tablet 2022-06 2-15 15:19: 34 06-10 00:00 :00 No 10mg Take 1 tablet by mouth at bedtime. [facility] atorvastati n 10 mg tablet 2022-06 00:00: 00 Yes Every other evening [facility] omeprazole 20 mg capsule 2022-06 00:00: 00 Yes [id number] 20mg Take 1 capsule by mouth daily. [facility] metFORMIN 1,000 mg tablet 2022-06 00:00: 00 11-03 00:00 :00 No [id number] 1000mg Take 1 tablet by mouth 2 (two) times daily with meals. [facility] semaglutide (OZEMPIC) 2 mg/dose (8 mg/3 mL) PnIj 2022-06 00:00: 00 11-03 00:00 :00 No [id number] 2mg inject 2 mg under the skin weekly. [facility] buPROPion 75 mg tablet 2022-06 00:00: 00 09-04 00:00 :00 No [id number] 75mg Take 1 tablet by mouth 2 (two) times daily. [facility] Insulin Seanor, Disposable, (AURA PEN NEEDLE) 32 gauge x 5/32" Ndle 2022-06 00:00: 00 09-02 00:00 :00 No [id number] Use as directed daily DX E11.9 [facility] MIRTAZAPINE 7.5 mg tablet 2022-06 00:00: 00 06-10 00:00 :00 No [id number] TOME EDISON TABLETA TODOS LOS CARMONA AL ACOSTARSE [facility] BASAGLAR KWIKPEN U-100 INSULIN 100 unit/mL (3 mL) injection 2022-06 00:00: 00 09-05 00:00 :00 No INYECTE 66 UNITS UNDER THE SKIN TODOS LOS CARMONA [facility] BASAGLAR KWIKPEN U-100 INSULIN 100 unit/mL (3 mL) injection 03-02 00:00: 00 Yes 66U inject 66 Units under the skin daily. [facility] levoFLOXaci n 250 mg tablet 02-23 00:00: 00 06-10 00:00 :00 No [id number] 250mg Take 1 tablet by mouth every 24 (twenty-fo ur) hours. [facility] LOSARTAN 100 mg tablet 02-21 00:00: 00 Yes [id number] REJI CARMONA [facility] insulin degludec (TRESIBA FLEXTOUCH U-100) 100 unit/mL (3 mL) InPn 02-21 00:00: 00 03-02 00:00 :00 No [id number] 66U inject 66 Units under the skin daily. [facility] omeprazole 20 mg capsule 02-18 14:52: 37 Yes 20mg Take 1 capsule by mouth daily. [facility] aspirin 81 mg chewable tablet 02-18 14:52: 37 Yes [id number] 81mg Take 1 tablet by mouth daily. [facility] magnesium oxide 400 mg (241.3 mg magnesium) tablet 02-18 14:52: 37 Yes 400mg Take 1 tablet by mouth daily. [facility] atorvastati n 10 mg tablet 02-18 14:52: 37 Yes 10mg Take 1 tablet by mouth at bedtime. [facility] Blood Pressure Monitor (BLOOD PRESSURE KIT) Kit 02-18 00:00: 00 10-10 00:00 :00 No [id number] Use as directed twice daily to check blood pressure. [facility] semaglutide (OZEMPIC) 2 mg/dose (8 mg/3 mL) PnIj 02-18 00:00: 00 06-10 00:00 :00 No [id number] 2mg inject 2 mg under the skin weekly. [facility] mirtazapine 7.5 mg tablet 02-18 00:00: 00 05-18 00:00 :00 No [id number] 7.5mg Take 1 tablet by mouth at bedtime. [facility] cefUROXime 250 mg tablet 12-07 00:00: 00 02-18 00:00 :00 No [id number] 250mg Take 1 tablet by mouth 2 (two) times daily. [facility] omeprazole 20 mg capsule 12-03 13:22: 13 Yes 20mg Take 1 capsule by mouth daily. [facility] aspirin 81 mg chewable tablet 12-03 13:22: 13 Yes [id number] 81mg Take 1 tablet by mouth daily. [facility] METFORMIN 1,000 mg tablet 12-03 00:00: 00 06-10 00:00 :00 No TAKE ONE TABLET BY MOUTH DAILY WITH BREAKFAST. [facility] Insulin Glargine 100 unit/mL (3 mL) injection 12-03 00:00: 00 02-21 00:00 :00 No [id number] INJECT 66 UNITS UNDER THE SKIN DAILY. [facility] aspirin 81 mg chewable tablet 10-19 14:41: 38 Yes [id number] 81mg Take 1 tablet by mouth daily. [facility] gabapentin 100 mg capsule 10-19 14:41: 34 10-19 00:00 :00 No 100mg Take 1 capsule by mouth 3 (three) times daily. [facility] ONETOUCH VERIO FLEX METER Misc 10-19 00:00: 00 Yes [id number] Please check two times a day. E11.65 [facility] ONE TOUCH DELICA 33 gauge Misc 0 10-19 00:00: 00 Yes [id number] Use as directed. Please check two times a day. E11.65 [facility] ONETOUCH VERIO FLEX METER Misc 0 10-19 00:00: 00 Yes [id number] Please check two times a day. E11.65 [facility] ONETOUCH VERIO FLEX METER Misc 0 10-19 00:00: 00 Yes [id number] Please check two times a day. E11.65 [facility] ONE TOUCH DELICA 33 gauge Misc 3-0 25 00:00: 00 11-24 00:00 :00 No [id number] Use as directed. Please check two times a day. E11.65 [facility] ONETOUCH VERIO TEST STRIPS strip 10-19 00:00: 00 07-20 00:00 :00 No [id number] Use as directed. Please check two times a day. E11.65 [facility] Insulin Glargine 100 unit/mL (3 mL) injection 10-19 00:00: 00 12-03 00:00 :00 No [id number] INJECT 66 UNITS UNDER THE SKIN DAILY. [facility] DULoxetine 30 mg capsule 09-21 10:19: 11 09-21 00:00 :00 No 30mg Take 1 capsule by mouth daily. [facility] mirtazapine 15 mg tablet 09-21 10:19: 11 09-21 00:00 :00 No [id number] 15mg Take 1 tablet by mouth at bedtime. [facility] aspirin 81 mg chewable tablet 09-21 10:17: 55 Yes [id number] 81mg Take 1 tablet by mouth daily. [facility] gabapentin 100 mg capsule 09-21 10:17: 55 Yes 100mg Take 1 capsule by mouth 3 (three) times daily. [facility] ibuprofen 600 mg tablet 09-21 00:00: 00 12-03 00:00 :00 No [id number] 600mg Take 1 tablet by mouth 3 (three) times daily as needed for Pain (scale 4-6). With meals [facility] DULoxetine 60 mg capsule 09-03 00:00: 00 Yes REJI HOGAN C PSULA TOMISHRA D FOR 90 DAYS [facility] mirtazapine 30 mg tablet 09-03 00:00: 00 12-03 00:00 :00 No TOME EDISON TABLETA TODOS LOS D AL ACOSTARSE FOR 90 DAYS [facility] atorvastati n 10 mg tablet 09-03 00:00: 00 09-21 00:00 :00 No TOME EDISON TABLETA TODOS LOS D FOR 90 DAYS [facility] benzonatate 100 mg capsule - 00:00: 00 10-19 00:00 :00 No [id number] 100mg Take 1 capsule by mouth every 8 (eight) hours as needed for Cough. [facility] cefdinir 300 mg capsule 1- 00:00: 00 09-21 00:00 :00 No [id number] 300mg Take 1 capsule by mouth every 12 (twelve) hours. [facility] Methylpredn isolone 4 mg tablet - 00:00: 00 07-06 05:59 :00 No [id number] 4mg Take 1 tablet by mouth every 12 (twelve) hours for 5 days. [facility] Insulin Glargine (BASAGLAR KWIKPEN U-100 INSULIN) 100 unit/mL (3 mL) injection 2021-06 00:00: 00 Yes INJECT 72 UNITS UNDER THE SKIN DAILY. [facility] Insulin Seanor, Disposable, (AURA PEN NEEDLE) 32 gauge x 5/32" Ndle 2021-06 00:00: 00 Yes Use as directed daily DX E11.9 [facility] Insulin Seanor, Disposable, (AURA PEN NEEDLE) 32 gauge x 5/32" Ndle 2021-06 00:00: 00 06-10 00:00 :00 No Use as directed daily DX E11.9 [facility] losartan 100 mg tablet 2021-06 00:00: 00 02-21 00:00 :00 No [id number] 100mg Take 1 tablet by mouth daily. [facility] semaglutide (OZEMPIC) 1 mg/dose (4 mg/3 mL) PnIj 2021-06 00:00: 00 02-18 00:00 :00 No Inject 1 mg weekly [facility] metFORMIN 1,000 mg tablet 2021-06 00:00: 00 12-03 00:00 :00 No Take one tablet by mouth daily with breakfast [facility] Insulin Glargine (BASAGLAR KWIKPEN U-100 INSULIN) 100 unit/mL (3 mL) injection 2021-06 2 00:00: 00 10-19 00:00 :00 No INJECT 72 UNITS UNDER THE SKIN DAILY. [facility] Albuterol Sulfate HFA 108 (90 Base) MCG/ACT Albuterol Sulfate HFA 108 (90 Base) MCG/ACT 2021-06 2 00:00: 00 No 2{puffs } Albuterol Sulfate HFA 108 (90 Base) MCG/ACT Albuterol Sulfate HFA 108 (90 Base) MCG/ACT Albuterol Sulfate HFA 108 (90 Base) MCG/ACT 2021-06 2 00:00: 00 No 2{puffs } Albuterol Sulfate HFA 108 (90 Base) MCG/ACT Albuterol Sulfate HFA 108 (90 Base) MCG/ACT Albuterol Sulfate HFA 108 (90 Base) MCG/ACT 2021-06 2 00:00: 00 No 2{puffs } Albuterol Sulfate HFA 108 (90 Base) MCG/ACT insulin regular human (HUMULIN R) injection 7.8 Units 2021-06 21:45: 00 05-17 21:49 :00 No .1U/kg 7.8 Units (0.1 Units/kg ?78 kg), Subcutaneo us, ONCE, 1 dose, On Tue05/17/22 at 1545, STAT
In dication for insulin: Hyperglyce charley [facility] albuterol 90 mcg/actuati on inhaler 2021-06 00:00: 00 12-03 00:00 :00 No [id number] 2{puff} Inhale 2 Puffs every 4 (four) hours as needed for Wheezing or Shortness of Breath. [facility] benzonatate 100 mg capsule 2021-06 00:00: 00 10-19 00:00 :00 No [id number] 100mg Take 1 capsule by mouth 3 (three) times daily as needed for Cough. [facility] azithromyci n 250 mg tablet 2021-06 00:00: 00 09-21 00:00 :00 No [id number] 250mg Take 1 tablet by mouth daily. [facility] DICLOFENAC SODIUM 1 % gel 7-12 00:00: 00 12-03 00:00 :00 No [id number] APPLY 2 GRAMS TO AFFECTED AREA(S) ON SKIN DOS VECES AL SHEEBA CUANDO SEA NECESARIO PARA EL DOLOR [facility] gabapentin 100 mg capsule 610 14:33: 18 Yes 100mg Take 100 mg by mouth 3 (three) times daily. [facility] atorvastati n 20 mg tablet 12-04 00:00: 00 12-03 00:00 :00 No [id number] 20mg Take 1 tablet by mouth at bedtime. [facility] semaglutide (OZEMPIC) 1 mg/dose (4 mg/3 mL) PnIj 12-04 00:00: 00 06-03 00:00 :00 No [id number] Inject 1 mg weekly [facility] Insulin Glargine (BASAGLAR KWIKPEN U-100 INSULIN) 100 unit/mL (3 mL) injection 12-04 00:00: 00 06-03 00:00 :00 No [id number] INJECT 72 UNITS UNDER THE SKIN DAILY. [facility] metFORMIN 1,000 mg tablet 12-04 00:00: 00 06-03 00:00 :00 No [id number] Take one tablet by mouth daily with breakfast [facility] DICLOFENAC SODIUM 1 % gel 5-23 00:00: 00 01-05 00:00 :00 No [id number] APPLY 2 GRAMS TO AFFECTED AREA(S) ON SKIN DOS VECES AL SHEEBA CUANDO SEA NECESARIO PARA EL DOLOR [facility] Nitrofurant oin&Nit. Macrocryst (MACROBID) 100 mg capsule 4-19 00:00: 00 12-04 00:00 :00 No [id number] 100mg Take 1 capsule by mouth 2 (two) times daily. [facility] Magnesium Oxide 400 (240 Mg) MG Magnesium Oxide 400 (240 Mg) MG 06-27 00:00: 00 No QD Magnesium Oxide 400 (240 Mg) MG Magnesium Oxide 400 (240 Mg) MG Magnesium Oxide 400 (240 Mg) MG 06-27 00:00: 00 No QD Magnesium Oxide 400 (240 Mg) MG DULoxetine 30 mg capsule 2020-06 15:03: 17 Yes 30mg Take 30 mg by mouth daily. [facility] mirtazapine 15 mg tablet 2020-06 15:03: 16 Yes [id number] 15mg Take 15 mg by mouth at bedtime. [facility] aspirin 81 mg chewable tablet 2020-06 15:03: 10 Yes [id number] 81mg Take 1 tablet by mouth daily. [facility] Insulin Glargine (BASAGLAR KWIKPEN U-100 INSULIN) 100 unit/mL (3 mL) injection 2020-06 00:00: 00 12-04 00:00 :00 No [id number] INJECT 68 UNITS UNDER THE SKIN DAILY. [facility] magnesium oxide 400 mg (241.3 mg magnesium) tablet 02-27 13:20: 06 Yes 400mg Take 1 tablet by mouth daily. [facility] flash glucose sensor (FREESTYLE RAMÓN 2 SENSOR) Kit 02-27 00:00: 00 12-03 00:00 :00 No 1{each} Apply 1 Each to skin every 14 (fourteen) days. Dx E11.65 [facility] flash glucose scanning reader (FREESTYLE RAMÓN 2 READER) [facility] 02-27 00:00: 00 12-03 00:00 :00 No 1{each} 1 Each daily. Dx E11.65 [facility] atorvastati n 20 mg tablet 7-16 00:00: 00 12-04 00:00 :00 No 20mg Take 1 tablet by mouth at bedtime. [facility] Atorvastati n Calcium 20 MG Atorvastati n Calcium 20 MG 6- 00:00: 00 No 1{table t} QD Atorvastat in Calcium 20 MG Atorvastati n Calcium 20 MG Atorvastati n Calcium 20 MG 2020-0 - 00:00: 00 No 1{table t} QD Atorvastat in Calcium 20 MG Atorvastati n Calcium 20 MG Atorvastati n Calcium 20 MG 0 6- 00:00: 00 No 1{table t} QD Atorvastat in Calcium 20 MG Atorvastati n Calcium 20 MG Atorvastati n Calcium 20 MG 2020-0 - 00:00: 00 No 1{table t} QD Atorvastat in Calcium 20 MG Atorvastati n Calcium 20 MG Atorvastati n Calcium 20 MG 0 - 00:00: 00 No 1{table t} QD Atorvastat in Calcium 20 MG Atorvastati n Calcium 20 MG Atorvastati n Calcium 20 MG 0 - 00:00: 00 No 1{table t} QD Atorvastat in Calcium 20 MG Alcohol Prep Pad 70 % Alcohol Prep Pad 70 % 2020-0 - 00:00: 00 No Alcohol Prep Pad 70 % Alcohol Prep Pad 70 % Alcohol Prep Pad 70 % 2020-0 - 00:00: 00 No Alcohol Prep Pad 70 % Alcohol Prep Pad 70 % Alcohol Prep Pad 70 % 2020-0 - 00:00: 00 No Alcohol Prep Pad 70 % Alcohol Prep Pad 70 % Alcohol Prep Pad 70 % 2020-0 - 00:00: 00 No Alcohol Prep Pad 70 % Alcohol Prep Pad 70 % Alcohol Prep Pad 70 % 2020-0 - 00:00: 00 No Alcohol Prep Pad 70 % Alcohol Prep Pad 70 % Alcohol Prep Pad 70 % 2020-0 - 00:00: 00 No Alcohol Prep Pad 70 % Victoza 18 MG/3ML Victoza 18 MG/3ML 2019-1 2- 00:00: 00 No QD Victoza 18 MG/3ML Triamcinolo ne Acetonide Triamcinolo ne Acetonide 03-04 00:00: 00 Yes Na Hyman 1 applicatio n [facility] Triamcinolo ne Acetonide 0.1 % Triamcinolo ne Acetonide 0.1 % 03-04 00:00: 00 No 1{appli cation} BID Triamcinol one Acetonide 0.1 % Keflex Keflex 03-04 00:00: 00 03-11 00:00 :00 No Na Hyman 1 capsule [facility] Mupirocin Mupirocin 03-04 00:00: 00 03-11 00:00 :00 No Na Hyman 1 applicatio n [facility] Triamcinolo ne Acetonide Triamcinolo ne Acetonide 02-27 00:00: 00 Yes Na Hyman 1 applicatio n to affected area [facility] Triamcinolo ne Acetonide 0.1 % Triamcinolo ne Acetonide 0.1 % 02-27 00:00: 00 No 1{appli cation_ to_affe cted_ar ea} BID Triamcinol one Acetonide 0.1 % Insulin Seanor, Disposable, (AURA PEN NEEDLE) 32 gauge x 5/32" Ndle 804 00:00: 00 06-03 00:00 :00 No [id number] Use as directed daily DX E11.9 [facility] Magnesium Oxide Magnesium Oxide 616 00:00: 00 06-07 00:00 :00 No Na Hyman 1 tablet [facility] 2017-06 00:00: 00 Yes Use as directed TID DX: E11.9 [facility] 2017-06 00:00: 00 Yes Use as directed TID DX: E11.9 [facility] Meclizine HCl Meclizine HCl 2017-06 00:00: 00 Yes Na Hyman 1 tablet as needed [facility] Meclizine HCl 25 MG Meclizine HCl 25 MG 2017-06 00:00: 00 No 1{table t_as_ne eded} Meclizine HCl 25 MG Losartan Potassium Losartan Potassium Yes Na Hyman 1 tablet Commo n [facility] Omeprazole Omeprazole Yes Na Hyman TO ME [place] [facility] Basaglar KwikPen Lizzethaglrhina FishikPen Yes Na Hyman INJECT 60 UNITS UNDER THE SKIN DAILY. [facility] Cymbalta Cymbalta Yes Na Hyman 1 capsule [facility] Farxiga Farxiga Yes Na Hyman 1 C ommon [facility] Gabapentin Gabapentin Yes Na Hyman TO ME 1 CAPSULA POR VIA ORAL MICHAEL VECES AL SHEEBA [facility] Lizzethaglar KwikPen Lizzethaglrhina FishikPen Yes Na Hyman 62 units [facility] Metformin HCl Metformin HCl Yes Na Hyman 1 tablet with a meal [facility] Atorvastati n Calcium Atorvastati n Calcium Yes Na Hyman 1 tablet Commo n [facility] BD Pen Needle Aura 2nd Gen BD Pen Needle Aura 2nd Gen Yes Na Hyman as directed [facility] Mirtazapine Mirtazapine Yes Na Hyman 1 tablet at bedtime [facility] Omeprazole Omeprazole Yes Na Hyman 1 capsule [facility] TRUEplus Lancets 30G - TRUEplus Lancets 30G - No TRUEplus Lancets 30G - FreeStyle Ramón 14 Day Calvert - FreeStyle Ramón 14 Day Calvert - No QD FreeStyle Ramón 14 Day Calvert - Cyclobenzap rine HCl 10 MG Cyclobenzap rine HCl 10 MG No Cyclobenza madhu HCl 10 MG FreeStyle Raómn 14 Day Sensor - FreeStyle Ramón 14 Day Sensor - No FreeStyle Ramón 14 Day Sensor - True Metrix Blood Glucose Test - True Metrix Blood Glucose Test - No True Metrix Blood Glucose Test - Farxiga 10mg Farxiga 10mg No QD Farxiga 10mg Sure Comfort Pen Seanor 32G X 4 MM Sure Comfort Pen Seanor 32G X 4 MM No Sure Comfort Pen Seanor 32G X 4 MM Cymbalta 60 MG Cymbalta 60 MG No 1{capsu le} BID Cymbalta 60 MG FreeStyle Ramón 14 Day Calvert - FreeStyle Ramón 14 Day Calvert - No QD FreeStyle Ramón 14 Day Calvert - DULoxetine HCl 60 MG DULoxetine HCl 60 MG No 1{capsu le} BID DULoxetine HCl 60 MG BD Pen Needle Aura 2nd Gen 32G X 4 MM BD Pen Needle Aura 2nd Gen 32G X 4 MM No BD Pen Needle Aura 2nd Gen 32G X 4 MM FreeStyle Ramón 14 Day Sensor - FreeStyle Ramón 14 Day Sensor - No FreeStyle Ramón 14 Day Sensor - Gabapentin 100 MG Gabapentin 100 MG No 1{capsu le} TID Gabapentin 100 MG Mirtazapine 30 MG Mirtazapine 30 MG No 1{table t_at_be dtime} QD Mirtazapin e 30 MG BD Pen Needle Aura U/F 32G X 4 MM BD Pen Needle Aura U/F 32G X 4 MM No BD Pen Needle Aura U/F 32G X 4 MM Cymbalta 60 MG Cymbalta 60 MG No 1{capsu le} BID Cymbalta 60 MG Mirtazapine 30 MG Mirtazapine 30 MG No Mirtazapin e 30 MG FreeStyle Ramón 14 Day Calvert - FreeStyle Ramón 14 Day Calvert - No QD FreeStyle Ramón 14 Day Calvert - BD Pen Needle Aura U/F 32G X 4 MM BD Pen Needle Aura U/F 32G X 4 MM No BD Pen Needle Aura U/F 32G X 4 MM DULoxetine HCl 60 MG DULoxetine HCl 60 MG No DULoxetine HCl 60 MG Gabapentin 100 MG Gabapentin 100 MG No 1{capsu le} TID Gabapentin 100 MG Cymbalta 60 MG Cymbalta 60 MG No 1{capsu le} BID Cymbalta 60 MG FreeStyle Ramón 14 Day Sensor - FreeStyle Ramón 14 Day Sensor - No FreeStyle Ramón 14 Day Sensor - Losartan Potassium 100 MG Losartan Potassium 100 MG No 1{table t} QD Losartan Potassium 100 MG Gabapentin 100 MG Gabapentin 100 MG No 1{capsu le} TID Gabapentin 100 MG Losartan Potassium 100 MG Losartan Potassium 100 MG No Losartan Potassium 100 MG BD Pen Needle Aura U/F 32G X 4 MM BD Pen Needle Aura U/F 32G X 4 MM No BD Pen Needle Aura U/F 32G X 4 MM FreeStyle Ramón 14 Day Calvert - FreeStyle Ramón 14 Day Calvert - No QD FreeStyle Ramón 14 Day Calvert - Mirtazapine 30 MG Mirtazapine 30 MG No Mirtazapin e 30 MG FreeStyle Ramón 14 Day Sensor - FreeStyle Ramón 14 Day Sensor - No FreeStyle Ramón 14 Day Sensor - MAGnesium-O xide 400 (240 Mg) MG MAGnesium-O xide 400 (240 Mg) MG No MAGnesium- Oxide 400 (240 Mg) MG Ozempic (1 MG/DOSE) 4 MG/3ML Ozempic (1 MG/DOSE) 4 MG/3ML No Ozempic (1 MG/DOSE) 4 MG/3ML metFORMIN HCl 1000 MG metFORMIN HCl 1000 MG No 1{table t_with_ a_meal} BID metFORMIN HCl 1000 MG DULoxetine HCl 60 MG DULoxetine HCl 60 MG No DULoxetine HCl 60 MG Gabapentin 100 MG Gabapentin 100 MG No 1{capsu le} TID Gabapentin 100 MG Losartan Potassium 100 MG Losartan Potassium 100 MG No Losartan Potassium 100 MG BD Pen Needle Aura U/F 32G X 4 MM BD Pen Needle Aura U/F 32G X 4 MM No BD Pen Needle Aura U/F 32G X 4 MM FreeStyle Ramón 14 Day Calvert - FreeStyle Ramón 14 Day Calvert - No QD FreeStyle Ramón 14 Day Calvert - FreeStyle Ramón 14 Day Sensor - FreeStyle Ramón 14 Day Sensor - No FreeStyle Ramón 14 Day Sensor - DULoxetine HCl 60 MG DULoxetine HCl 60 MG No 1{capsu le} QD DULoxetine HCl 60 MG Mirtazapine 30 MG Mirtazapine 30 MG No Mirtazapin e 30 MG Atorvastati n Calcium 10 MG Atorvastati n Calcium 10 MG No Atorvastat in Calcium 10 MG Omeprazole 20 MG Omeprazole 20 MG No QD Omeprazole 20 MG Ozempic (1 MG/DOSE) 4 MG/3ML Ozempic (1 MG/DOSE) 4 MG/3ML No Ozempic (1 MG/DOSE) 4 MG/3ML metFORMIN HCl 1000 MG metFORMIN HCl 1000 MG No 1{table t_with_ a_meal} BID metFORMIN HCl 1000 MG MAGnesium-O xide 400 (240 Mg) MG MAGnesium-O xide 400 (240 Mg) MG No MAGnesium- Oxide 400 (240 Mg) MG Gabapentin 100 MG Gabapentin 100 MG No 1{capsu le} TID Gabapentin 100 MG Losartan Potassium 100 MG Losartan Potassium 100 MG No Losartan Potassium 100 MG BD Pen Needle Aura U/F 32G X 4 MM BD Pen Needle Aura U/F 32G X 4 MM No BD Pen Needle Aura U/F 32G X 4 MM FreeStyle Ramón 14 Day Calvert - FreeStyle Ramón 14 Day Calvert - No QD FreeStyle Ramón 14 Day Calvert - FreeStyle Ramón 14 Day Sensor - FreeStyle Ramón 14 Day Sensor - No FreeStyle Ramón 14 Day Sensor - DULoxetine HCl 60 MG DULoxetine HCl 60 MG No 1{capsu le} QD DULoxetine HCl 60 MG Mirtazapine 30 MG Mirtazapine 30 MG No Mirtazapin e 30 MG Atorvastati n Calcium 10 MG Atorvastati n Calcium 10 MG No Atorvastat in Calcium 10 MG Omeprazole 20 MG Omeprazole 20 MG No QD Omeprazole 20 MG Ozempic (1 MG/DOSE) 4 MG/3ML Ozempic (1 MG/DOSE) 4 MG/3ML No Ozempic (1 MG/DOSE) 4 MG/3ML metFORMIN HCl 1000 MG metFORMIN HCl 1000 MG No 1{table t_with_ a_meal} BID metFORMIN HCl 1000 MG MAGnesium-O xide 400 (240 Mg) MG MAGnesium-O xide 400 (240 Mg) MG No MAGnesium- Oxide 400 (240 Mg) MG Immunizations Ordered Immunization Name Filled Immunization Name Date Status Comments Source Influenza, adjuvanted, trivalent, PF (FLUAD) 2024-05-14 00:00:00 Completed SARS-COV-2 COVID-19 MODERNA 12+ YRS VACCINE 2023-11-24 10:45:00 Completed [facility] Influenza Virus Vaccine,quad Im,preserve Free 65+ (FLUAD) 2023-11-24 10:45:00 Completed [facility] SARS-COV-2 COVID-19 PFIZER VACCINE 2023-11-24 10:45:00 Completed [facility] Zoster(Zostavax)(Sh ingles) 2023-11-24 10:45:00 Completed [facility] Pneumococcal 20 Conjugate, PCV20 (Prevnar 20) 2023-11-24 10:45:00 Completed [facility] TDAP 2023-11-24 10:45:00 Completed [facility] SARS-COV-2 COVID-19 MODERNA 12+ YRS VACCINE 2023-11-24 00:00:00 Completed [facility] Influenza Virus Vaccine,quad Im,preserve Free 65+ (FLUAD) 2023-11-24 00:00:00 Completed [facility] SARS-COV-2 COVID-19 PFIZER VACCINE 2023-11-24 00:00:00 Completed [facility] Zoster(Zostavax)( ingkatelyn) 2023-11-24 00:00:00 Completed [facility] Pneumococcal 20 Conjugate, PCV20 (Prevnar 20) 2023-11-24 00:00:00 Completed [facility] TDAP 2023-11-24 00:00:00 Completed [facility] SARS-COV-2 COVID-19 MODERNA 12+ YRS VACCINE 2023-11-14 00:00:00 Completed [facility] Influenza Virus Vaccine,quad Im,preserve Free 65+ (FLUAD) 2023-11-14 00:00:00 Completed [facility] SARS-COV-2 COVID-19 PFIZER VACCINE 2023-11-14 00:00:00 Completed [facility] Zoster(Zostavax)( francois) 2023-11-14 00:00:00 Completed [facility] Pneumococcal 20 Conjugate, PCV20 (Prevnar 20) 2023-11-14 00:00:00 Completed [facility] TDAP 2023-11-14 00:00:00 Completed [facility] SARS-COV-2 COVID-19 MODERNA 12+ YRS VACCINE 2023-11-08 08:45:00 Completed [facility] Influenza Virus Vaccine,quad Im,preserve Free 65+ (FLUAD) 2023-11-08 08:45:00 Completed [facility] SARS-COV-2 COVID-19 PFIZER VACCINE 2023-11-08 08:45:00 Completed [facility] Zoster(Zostavax)( ingkatelyn) 2023-11-08 08:45:00 Completed [facility] Pneumococcal 20 Conjugate, PCV20 (Prevnar 20) 2023-11-08 08:45:00 Completed [facility] TDAP 2023-11-08 08:45:00 Completed [facility] SARS-COV-2 COVID-19 MODERNA 12+ YRS VACCINE 2023-11-07 00:00:00 Completed [facility] Influenza Virus Vaccine,quad Im,preserve Free 65+ (FLUAD) 2023-11-07 00:00:00 Completed [facility] SARS-COV-2 COVID-19 PFIZER VACCINE 2023-11-07 00:00:00 Completed [facility] Zoster(Zostavax)(Sh ingles) 2023-11-07 00:00:00 Completed [facility] Pneumococcal 20 Conjugate, PCV20 (Prevnar 20) 2023-11-07 00:00:00 Completed [facility] TDAP 2023-11-07 00:00:00 Completed [facility] SARS-COV-2 COVID-19 MODERNA 12+ YRS VACCINE 2023-11-04 16:45:00 Completed [facility] Influenza Virus Vaccine,quad Im,preserve Free 65+ (FLUAD) 2023-11-04 16:45:00 Completed [facility] SARS-COV-2 COVID-19 PFIZER VACCINE 2023-11-04 16:45:00 Completed [facility] Zoster(Zostavax)( ingles) 2023-11-04 16:45:00 Completed [facility] Pneumococcal 20 Conjugate, PCV20 (Prevnar 20) 2023-11-04 16:45:00 Completed [facility] TDAP 2023-11-04 16:45:00 Completed [facility] SARS-COV-2 COVID-19 MODERNA 12+ YRS VACCINE 2023-11-04 15:00:00 Completed [facility] Influenza Virus Vaccine,quad Im,preserve Free 65+ (FLUAD) 2023-11-04 15:00:00 Completed [facility] SARS-COV-2 COVID-19 PFIZER VACCINE 2023-11-04 15:00:00 Completed [facility] Zoster(Zostavax)( ingles) 2023-11-04 15:00:00 Completed [facility] Pneumococcal 20 Conjugate, PCV20 (Prevnar 20) 2023-11-04 15:00:00 Completed [facility] TDAP 2023-11-04 15:00:00 Completed [facility] SARS-COV-2 COVID-19 MODERNA 12+ YRS VACCINE 2023-11-04 00:00:00 Completed [facility] Influenza Virus Vaccine,quad Im,preserve Free 65+ (FLUAD) 2023-11-04 00:00:00 Completed [facility] SARS-COV-2 COVID-19 PFIZER VACCINE 2023-11-04 00:00:00 Completed [facility] Zoster(Zostavax)( francois) 2023-11-04 00:00:00 Completed [facility] Pneumococcal 20 Conjugate, PCV20 (Prevnar 20) 2023-11-04 00:00:00 Completed [facility] TDAP 2023-11-04 00:00:00 Completed [facility] SARS-COV-2 COVID-19 MODERNA 12+ YRS VACCINE 2023-10-11 19:40:00 Completed [facility] Influenza Virus Vaccine,quad Im,preserve Free 65+ (FLUAD) 2023-10-11 19:40:00 Completed [facility] SARS-COV-2 COVID-19 PFIZER VACCINE 2023-10-11 19:40:00 Completed [facility] Zoster(Zostavax)( francois) 2023-10-11 19:40:00 Completed [facility] Pneumococcal 20 Conjugate, PCV20 (Prevnar 20) 2023-10-11 19:40:00 Completed [facility] TDAP 2023-10-11 19:40:00 Completed [facility] SARS-COV-2 COVID-19 MODERNA 12+ YRS VACCINE 2023-09-13 00:00:00 Completed [facility] Influenza Virus Vaccine,quad Im,preserve Free 65+ (FLUAD) 2023-09-13 00:00:00 Completed [facility] SARS-COV-2 COVID-19 PFIZER VACCINE 2023-09-13 00:00:00 Completed [facility] Zoster(Zostavax)( francois) 2023-09-13 00:00:00 Completed [facility] Pneumococcal 20 Conjugate, PCV20 (Prevnar 20) 2023-09-13 00:00:00 Completed [facility] TDAP 2023-09-13 00:00:00 Completed [facility] SARS-COV-2 COVID-19 MODERNA 12+ YRS VACCINE 2023-09-05 00:00:00 Completed [facility] Influenza Virus Vaccine,quad Im,preserve Free 65+ (FLUAD) 2023-09-05 00:00:00 Completed [facility] SARS-COV-2 COVID-19 PFIZER VACCINE 2023-09-05 00:00:00 Completed [facility] Zoster(Zostavax)( ingles) 2023-09-05 00:00:00 Completed [facility] Pneumococcal 20 Conjugate, PCV20 (Prevnar 20) 2023-09-05 00:00:00 Completed [facility] TDAP 2023-09-05 00:00:00 Completed [facility] SARS-COV-2 COVID-19 MODERNA 12+ YRS VACCINE 2023-09-05 00:00:00 Completed [facility] Influenza Virus Vaccine,quad Im,preserve Free 65+ (FLUAD) 2023-09-05 00:00:00 Completed [facility] SARS-COV-2 COVID-19 PFIZER VACCINE 2023-09-05 00:00:00 Completed [facility] Zoster(Zostavax)( ingles) 2023-09-05 00:00:00 Completed [facility] TDAP 2023-09-05 00:00:00 Completed [facility] SARS-COV-2 COVID-19 MODERNA 12+ YRS VACCINE 2023-09-03 00:00:00 Completed [facility] Influenza Virus Vaccine,quad Im,preserve Free 65+ (FLUAD) 2023-09-03 00:00:00 Completed [facility] SARS-COV-2 COVID-19 PFIZER VACCINE 2023-09-03 00:00:00 Completed [facility] Zoster(Zostavax)( ingles) 2023-09-03 00:00:00 Completed [facility] Pneumococcal 20 Conjugate, PCV20 (Prevnar 20) 2023-09-03 00:00:00 Completed [facility] TDAP 2023-09-03 00:00:00 Completed [facility] SARS-COV-2 COVID-19 MODERNA 12+ YRS VACCINE 2023-09-02 00:00:00 Completed [facility] Influenza Virus Vaccine,quad Im,preserve Free 65+ (FLUAD) 2023-09-02 00:00:00 Completed [facility] SARS-COV-2 COVID-19 PFIZER VACCINE 2023-09-02 00:00:00 Completed [facility] Zoster(Zostavax)(Sh ingles) 2023-09-02 00:00:00 Completed [facility] Pneumococcal 20 Conjugate, PCV20 (Prevnar 20) 2023-09-02 00:00:00 Completed [facility] TDAP 2023-09-02 00:00:00 Completed [facility] SARS-COV-2 COVID-19 MODERNA 12+ YRS VACCINE 2023-07-17 00:00:00 Completed [facility] Influenza Virus Vaccine,quad Im,preserve Free 65+ (FLUAD) 2023-07-17 00:00:00 Completed [facility] SARS-COV-2 COVID-19 PFIZER VACCINE 2023-07-17 00:00:00 Completed [facility] SARS-COV-2 COVID-19 MODERNA 12+ YRS VACCINE 2023-07-15 09:38:23 Completed [facility] Influenza Virus Vaccine,quad Im,preserve Free 65+ (FLUAD) 2023-07-15 09:38:23 Completed [facility] SARS-COV-2 COVID-19 PFIZER VACCINE 2023-07-15 09:38:23 Completed [facility] SARS-COV-2 COVID-19 MODERNA 12+ YRS VACCINE 2023-07-03 00:00:00 Completed [facility] Influenza Virus Vaccine,quad Im,preserve Free 65+ (FLUAD) 2023-07-03 00:00:00 Completed [facility] SARS-COV-2 COVID-19 PFIZER VACCINE 2023-07-03 00:00:00 Completed [facility] SARS-COV-2 COVID-19 MODERNA 12+ YRS VACCINE 2023-06-15 00:00:00 Completed [facility] Influenza Virus Vaccine,quad Im,preserve Free 65+ (FLUAD) 2023-06-15 00:00:00 Completed [facility] SARS-COV-2 COVID-19 PFIZER VACCINE 2023-06-15 00:00:00 Completed [facility] Influenza Virus Vaccine,quad Im,preserve Free 65+ (FLUAD) 2023-06-10 15:45:00 Completed [facility] SARS-COV-2 COVID-19 PFIZER VACCINE 2023-06-10 15:45:00 Completed [facility] SARS-COV-2 COVID-19 MODERNA 12+ YRS VACCINE 2023-06-10 15:45:00 Completed [facility] SARS-COV-2 COVID-19 MODERNA 12+ YRS VACCINE 2023-06-10 14:40:00 Completed [facility] Influenza Virus Vaccine,quad Im,preserve Free 65+ (FLUAD) 2023-06-10 14:40:00 Completed [facility] SARS-COV-2 COVID-19 PFIZER VACCINE 2023-06-10 14:40:00 Completed [facility] SARS-COV-2 COVID-19 MODERNA 12+ YRS VACCINE 2023-06-10 00:00:00 Completed [facility] SARS-COV-2 COVID-19 MODERNA 12+ YRS VACCINE 2023-06-08 00:00:00 Completed [facility] SARS-COV-2 COVID-19 MODERNA 12+ YRS VACCINE 2023-05-18 00:00:00 Completed [facility] SARS-COV-2 COVID-19 PFIZER VACCINE 2023-05-09 00:00:00 Completed [facility] Influenza Virus Vaccine,quad Im,preserve Free 65+ (FLUAD) 2023-05-09 00:00:00 Completed [facility] SARS-COV-2 COVID-19 MODERNA 12+ YRS VACCINE 2023-05-06 00:00:00 Completed [facility] Influenza Virus Vaccine,quad Im,preserve Free 65+ (FLUAD) 2023-05-06 00:00:00 Completed [facility] SARS-COV-2 COVID-19 PFIZER VACCINE 2023-05-06 00:00:00 Completed [facility] Zoster(Zostavax)(Sh ingles) 2023-04-12 00:00:00 Completed [facility] Pneumococcal 20 Conjugate, PCV20 (Prevnar 20) 2023-04-12 00:00:00 Completed [facility] TDAP 2023-04-12 00:00:00 Completed [facility] SARS-COV-2 COVID-19 MODERNA 12+ YRS VACCINE 2020-07-30 00:00:00 Completed [facility] SARS-COV-2 COVID-19 MODERNA 12+ YRS VACCINE 2020-07-02 00:00:00 Completed [facility] Influenza Virus Vaccine Recomb Quad IM, Preserv and ABX Free 18-64 YRS 2020-04-09 00:00:00 Completed [facility] FluAD FluAD 2019-03-16 12:04:00 Completed [facility] FluAD FluAD 2019-03-16 12:04:00 Completed [facility] FluAD FluAD 2019-03-16 12:04:00 Completed [facility] FluAD FluAD 2019-03-16 12:04:00 Completed [facility] FluAD FluAD 2019-03-16 12:04:00 Completed [facility] Influenza, adjuvanted, trivalent, PF (FLUAD) 2019-03-16 00:00:00 Completed [facility] 2019-03-16 00:00:00 Completed [facility] FluAD FluAD Unknown Completed [facility] Vital Signs Vital Name Observation Time Observation Value Comments S ource Systolic blood pressure 2025-02-04 21:00:00 99 mm[Hg] [facility] Diastolic blood pressure 2025-02-04 21:00:00 62 mm[Hg] [facility] Heart rate 2025-02-04 21:00:00 89 /min [facility] Body height 2025-02-04 21:00:00 147.3 cm [facility] acute hospital Body weight 2025-02-04 21:00:00 62.732 kg [facility] acute hospital BMI 2025-02-04 21:00:00 28.90 kg/m2 General acute hospital Oxygen saturation in Arterial blood by Pulse oximetry 2025-02-04 21:00:00 98 /min [facility] Systolic blood pressure 2024-11-12 19:38:00 127 mm[Hg] [facility] Diastolic blood pressure 2024-11-12 19:38:00 80 mm[Hg] [facility] Heart rate 2024-11-12 19:38:00 75 /min Unive [facility] Body temperature 2024-11-12 19:38:00 35.72 Pam [facility] Respiratory rate 2024-11-12 19:38:00 20 /min [facility] Body height 2024-11-12 19:38:00 147.3 cm [facility] weight 2024-11-12 19:38:00 62.551 kg Univ [facility] BMI 2024-11-12 19:38:00 28.82 kg/m2 [facility] Oxygen saturation in Arterial blood by Pulse oximetry 2024-11-12 19:38:00 99 /min [facility] Systolic blood pressure 2024-11-12 18:33:00 104 mm[Hg] [facility] Diastolic blood pressure 2024-11-12 18:33:00 62 mm[Hg] [facility] Heart rate 2024-11-12 18:33:00 84 /min Unive [facility] Respiratory rate 2024-11-12 18:33:00 18 /min [facility] Body height 2024-11-12 18:33:00 152.4 cm Univ [facility] Body weight 2024-11-12 18:33:00 61.944 kg Univ [facility] BMI 2024-11-12 18:33:00 26.67 kg/m2 Univ [facility] Oxygen saturation in Arterial blood by Pulse oximetry 2024-11-12 18:33:00 99 /min [facility] Systolic blood pressure 2024-08-30 21:56:00 123 mm[Hg] [facility] Diastolic blood pressure 2024-08-30 21:56:00 73 mm[Hg] [facility] Heart rate 2024-08-30 21:56:00 109 /min Unive [facility] Body temperature 2024-08-30 21:56:00 36.5 Pam [facility] Respiratory rate 2024-08-30 21:56:00 20 /min [facility] Body weight 2024-08-30 21:56:00 66.361 kg Univ [facility] BMI 2024-08-30 21:56:00 30.58 kg/m2 Univ [facility] Oxygen saturation in Arterial blood by Pulse oximetry 2024-08-30 21:56:00 97 /min [facility] Systolic blood pressure 2024-08-24 19:51:00 139 mm[Hg] [facility] Diastolic blood pressure 2024-08-24 19:51:00 69 mm[Hg] [facility] Heart rate 2024-08-24 19:51:00 88 /min Unive [facility] Body height 2024-08-24 19:51:00 147.3 cm Univ [facility] Body weight 2024-08-24 19:51:00 65.318 kg Univ [facility] BMI 2024-08-24 19:51:00 30.10 kg/m2 General acute hospital Oxygen saturation in Arterial blood by Pulse oximetry 2024-08-24 19:51:00 100 /min [facility] Systolic blood pressure 2024-07-07 00:13:00 126 mm[Hg] [facility] Diastolic blood pressure 2024-07-07 00:13:00 76 mm[Hg] [facility] Heart rate 2024-07-07 00:13:00 94 /min [facility] Body temperature 2024-07-07 00:13:00 36.72 Pam [facility] Respiratory rate 2024-07-07 00:13:00 14 /min [facility] Body height 2024-07-07 00:13:00 147.3 cm Univ [facility] Body weight 2024-07-07 00:13:00 65.363 kg Univ [facility] BMI 2024-07-07 00:13:00 30.12 kg/m2 Univ [facility] Oxygen saturation in Arterial blood by Pulse oximetry 2024-07-07 00:13:00 96 /min [facility] Systolic blood pressure 2024-05-14 20:33:00 134 mm[Hg] [facility] Diastolic blood pressure 2024-05-14 20:33:00 75 mm[Hg] [facility] Heart rate 2024-05-14 20:33:00 74 /min Un[facility] Respiratory rate 2024-05-14 20:33:00 18 /min [facility] Body weight 2024-05-14 20:33:00 68.295 kg Univ [facility] BMI 2024-05-14 20:33:00 31.47 kg/m2 Univ [facility] Oxygen saturation in Arterial blood by Pulse oximetry 2024-05-14 20:33:00 98 /min [facility] Systolic blood pressure 2024-05-14 19:09:00 127 mm[Hg] [facility] Diastolic blood pressure 2024-05-14 19:09:00 76 mm[Hg] [facility] Heart rate 2024-05-14 19:09:00 83 /min Un[facility] Body height 2024-05-14 19:09:00 147.3 cm Univ [facility] Body weight 2024-05-14 19:09:00 68.266 kg Univ [facility] BMI 2024-05-14 19:09:00 31.45 kg/m2 Univ [facility] Oxygen saturation in Arterial blood by Pulse oximetry 2024-05-14 19:09:00 99 /min [facility] Systolic blood pressure 2023-11-04 19:50:00 98 mm[Hg] [facility] Diastolic blood pressure 2023-11-04 19:50:00 58 mm[Hg] [facility] Heart rate 2023-11-04 19:50:00 90 /min Un[facility] Body height 2023-11-04 19:50:00 147.3 cm Univ [facility] Body weight 2023-11-04 19:50:00 69.355 kg Univ [facility] BMI 2023-11-04 19:50:00 31.96 kg/m2 [facility] Oxygen saturation in Arterial blood by Pulse oximetry 2023-11-04 19:50:00 100 /min [facility] Systolic blood pressure 2023-10-12 00:52:00 138 mm[Hg] [facility] Diastolic blood pressure 2023-10-12 00:52:00 76 mm[Hg] [facility] Heart rate 2023-10-12 00:52:00 87 /min Unive [facility] Body temperature 2023-10-12 00:52:00 36.67 Pam [facility] Respiratory rate 2023-10-12 00:52:00 18 /min [facility] Body height 2023-10-12 00:52:00 149.9 cm [facility] acute hospital Body weight 2023-10-12 00:52:00 70.024 kg [facility] acute hospital BMI 2023-10-12 00:52:00 31.18 kg/m2 General acute hospital Oxygen saturation in Arterial blood by Pulse oximetry 2023-10-12 00:52:00 98 /min [facility] Systolic blood pressure 2023-06-10 20:29:00 121 mm[Hg] [facility] Diastolic blood pressure 2023-06-10 20:29:00 63 mm[Hg] [facility] Heart rate 2023-06-10 20:29:00 76 /min Unive [facility] Body height 2023-06-10 20:29:00 147.3 cm [facility] acute hospital Body weight 2023-06-10 20:29:00 73.165 kg General acute hospital BMI 2023-06-10 20:29:00 33.71 kg/m2 General acute hospital Oxygen saturation in Arterial blood by Pulse oximetry 2023-06-10 20:29:00 96 /min [facility] Systolic blood pressure 2023-02-18 19:45:00 133 mm[Hg] [facility] Diastolic blood pressure 2023-02-18 19:45:00 73 mm[Hg] [facility] Heart rate 2023-02-18 19:45:00 87 /min Unive [facility] Body temperature 2023-02-18 19:45:00 36.72 Pam [facility] Body height 2023-02-18 19:45:00 147.3 cm Univ [facility] Body weight 2023-02-18 19:45:00 73.347 kg Univ [facility] BMI 2023-02-18 19:45:00 33.80 kg/m2 [facility] Oxygen saturation in Arterial blood by Pulse oximetry 2023-02-18 19:45:00 97 /min [facility] Systolic blood pressure 2022-12-03 18:36:00 145 mm[Hg] [facility] Diastolic blood pressure 2022-12-03 18:36:00 76 mm[Hg] [facility] Heart rate 2022-12-03 18:35:00 70 /min Unive [facility] Respiratory rate 2022-12-03 18:35:00 18 /min [facility] Body height 2022-12-03 18:35:00 147.3 cm Univ [facility] Body weight 2022-12-03 18:35:00 65.182 kg Univ [facility] BMI 2022-12-03 18:35:00 30.03 kg/m2 Univ [facility] Oxygen saturation in Arterial blood by Pulse oximetry 2022-12-03 18:35:00 99 /min [facility] Systolic blood pressure 2022-10-19 18:47:00 143 mm[Hg] [facility] Diastolic blood pressure 2022-10-19 18:47:00 69 mm[Hg] [facility] Heart rate 2022-10-19 18:46:00 78 /min Unive [facility] Body weight 2022-10-19 18:46:00 72.757 kg Univ [facility] BMI 2022-10-19 18:46:00 33.52 kg/m2 Univ [facility] Systolic blood pressure 2022-09-21 15:20:00 130 mm[Hg] [facility] Diastolic blood pressure 2022-09-21 15:20:00 77 mm[Hg] [facility] Heart rate 2022-09-21 15:10:00 77 /min Unive [facility] Body temperature 2022-09-21 15:10:00 37.06 Pam [facility] Respiratory rate 2022-09-21 15:10:00 20 /min [facility] Body height 2022-09-21 15:10:00 147.3 cm Univ [facility] Body weight 2022-09-21 15:10:00 70.489 kg Univ [facility] BMI 2022-09-21 15:10:00 32.48 kg/m2 Univ [facility] Oxygen saturation in Arterial blood by Pulse oximetry 2022-09-21 15:10:00 98 /min [facility] Systolic blood pressure 2022-09-20 20:54:00 136 mm[Hg] [facility] Diastolic blood pressure 2022-09-20 20:54:00 68 mm[Hg] [facility] Heart rate 2022-09-20 20:54:00 79 /min Unive [facility] Body temperature 2022-09-20 20:54:00 36.78 Pam [facility] Respiratory rate 2022-09-20 20:54:00 16 /min [facility] Body weight 2022-09-20 20:54:00 71.215 kg General acute hospital BMI 2022-09-20 20:54:00 32.81 kg/m2 General acute hospital Oxygen saturation in Arterial blood by Pulse oximetry 2022-09-20 20:54:00 96 /min [facility] Systolic blood pressure 2022-06-30 18:02:00 152 mm[Hg] [facility] Diastolic blood pressure 2022-06-30 18:02:00 76 mm[Hg] [facility] Heart rate 2022-06-30 18:01:00 87 /min Unive [facility] Body temperature 2022-06-30 18:01:00 36.83 Pam [facility] Respiratory rate 2022-06-30 18:01:00 16 /min [facility] Body height 2022-06-30 18:01:00 147.3 cm Univ [facility] Body weight 2022-06-30 18:01:00 70.308 kg Univ [facility] BMI 2022-06-30 18:01:00 32.40 kg/m2 General acute hospital Oxygen saturation in Arterial blood by Pulse oximetry 2022-06-30 18:01:00 96 /min [facility] height 2022-05-31 14:40:00 58.00 [in_i] Com [facility] weight 2022-05-31 14:40:00 152.6 [lb_av] Co mmon [facility] temperature 2022-05-31 14:40:00 97.5 [degF] Com mon [facility] bmi 2022-05-31 14:40:00 31.89 kg/m2 Comm on [facility] oximetry 2022-05-31 14:40:00 95 % Commo n [facility] respiratory rate 2022-05-31 14:40:00 16 /min [facility] blood pressure systolic 2022-05-31 14:40:00 134 mm[Hg] [facility] blood pressure diastolic 2022-05-31 14:40:00 67 mm[Hg] [facility] Systolic blood pressure 2022-05-17 19:45:00 155 mm[Hg] [facility] Diastolic blood pressure 2022-05-17 19:45:00 58 mm[Hg] [facility] Heart rate 2022-05-17 19:45:00 88 /min [facility] Body temperature 2022-05-17 19:45:00 37.11 Pam [facility] Respiratory rate 2022-05-17 19:45:00 18 /min [facility] Body height 2022-05-17 19:45:00 144.8 cm [facility] acute hospital Body weight 2022-05-17 19:45:00 78.019 kg General acute hospital BMI 2022-05-17 19:45:00 37.22 kg/m2 General acute hospital Oxygen saturation in Arterial blood by Pulse oximetry 2022-05-17 19:45:00 95 /min [facility] Systolic blood pressure 2022-04-09 14:51:00 114 mm[Hg] [facility] Diastolic blood pressure 2022-04-09 14:51:00 61 mm[Hg] [facility] Heart rate 2022-04-09 14:51:00 91 /min [facility] Body weight 2022-04-09 14:51:00 73.573 kg General acute hospital BMI 2022-04-09 14:51:00 36.36 kg/m2 General acute hospital Oxygen saturation in Arterial blood by Pulse oximetry 2022-04-09 14:51:00 98 /min [facility] height 2022-02-26 14:00:00 58.00 [in_i] Com [facility] weight 2022-02-26 14:00:00 164.0 [lb_av] Co [facility] temperature 2022-02-26 14:00:00 98.8 [degF] Com [facility] bmi 2022-02-26 14:00:00 34.27 kg/m2 Comm on [facility] oximetry 2022-02-26 14:00:00 96 % Commo n [facility] respiratory rate 2022-02-26 14:00:00 17 /min [facility] blood pressure systolic 2022-02-26 14:00:00 138 mm[Hg] [facility] blood pressure diastolic 2022-02-26 14:00:00 68 mm[Hg] [facility] height 2022-02-26 14:40:00 58.00 [in_i] Com [facility] weight 2022-02-26 14:40:00 164.0 [lb_av] Co [facility] temperature 2022-02-26 14:40:00 98.8 [degF] Com [facility] bmi 2022-02-26 14:40:00 34.27 kg/m2 Comm on [facility] oximetry 2022-02-26 14:40:00 96 % Commo n [facility] respiratory rate 2022-02-26 14:40:00 17 /min [facility] blood pressure systolic 2022-02-26 14:40:00 138 mm[Hg] [facility] blood pressure diastolic 2022-02-26 14:40:00 68 mm[Hg] [facility] Systolic blood pressure 2021-12-04 19:23:00 109 mm[Hg] [facility] Diastolic blood pressure 2021-12-04 19:23:00 71 mm[Hg] [facility] Body height 2021-12-04 19:23:00 142.2 cm [facility] acute hospital Body weight 2021-12-04 19:23:00 73.029 kg [facility] acute hospital BMI 2021-12-04 19:23:00 36.10 kg/m2 General acute hospital Oxygen saturation in Arterial blood by Pulse oximetry 2021-12-04 19:23:00 96 /min [facility] height 2021-08-03 14:40:00 58.00 [in_i] Com [facility] weight 2021-08-03 14:40:00 156 [lb_av] Comm on [facility] temperature 2021-08-03 14:40:00 97.3 [degF] Com [facility] bmi 2021-08-03 14:40:00 32.6 kg/m2 Commo n [facility] oximetry 2021-08-03 14:40:00 97 % Commo n [facility] respiratory rate 2021-08-03 14:40:00 16 /min [facility] blood pressure systolic 2021-08-03 14:40:00 119 mm[Hg] [facility] blood pressure diastolic 2021-08-03 14:40:00 59 mm[Hg] [facility] Procedures Procedure Date / Time Performed Performing Clinician Source POCT HEMOGLOBIN A1C TEST 2024-11-12 18:54:00 Stephany Mann [facility] POCT HEMOGLOBIN A1C TEST 2024-05-14 20:41:00 Stephany Mann [facility] FLU VACC(),65+YR,0. 5 ML,IM,ADJUVANTED,TIV(FLU AD) 2024-05-14 19:54:41 Rasheeda Mead [facility] URINE CULTURE 2023-11-08 12:00:00 Kinga [facility] POCT URINALYSIS 2023-10-12 00:52:00 Elle Edge [facility] DEXA AXIAL (HIP AND SPINE) 2023-07-15 15:58:48 Kn[facility] CBC WITH DIFF 2023-06-10 21:51:00 Kinga [facility] URINE CULTURE 2023-06-10 21:51:00 King[place] [facility] ASSIGNMENT OF BENEFITS 2023-06-10 20:18:01 Docto r Unassigned, [place] [facility] POCT HEMOGLOBIN A1C TEST 2023-06-10 00:00:00 Ivelisse Franklin [facility] AUTHORIZATION FOR RELEASE OF PHI 2023-02-22 05:01:00 Doctor Unassigned, [place] [facility] URINALYSIS 2023-02-18 20:48:00 Allyn Franklin [facility] URINE CULTURE 2023-02-18 20:48:00 Allyn [facility] POCT HEMOGLOBIN A1C TEST 2023-02-18 00:00:00 Ivelisse Franklin [facility] EXTERNAL PROVIDER RECORDS 2022-12-31 05:01:00 Doctor Unassigned, [place] [facility] URINALYSIS 2022-12-04 15:14:00 Allyn Franklin [facility] COMP. METABOLIC PANEL (01701) 2022-12-04 15:06:00 Allyn Franklin [facility] LIPID PANEL (64329)(TOTAL CHOLESTEROL, TRIGLYCERIDES, HDL) 2022-12-04 15:06:00 Allyn Franklin [facility] CBC WITH DIFF 2022-12-04 15:06:00 Allyn Franklin [facility] AUTHORIZATION TO RELEASE PHI TO [facility] 2022-12-03 05:01:00 Doctor Unassigned, [place] [facility] POCT HEMOGLOBIN A1C TEST 2022-10-19 19:00:00 José Luis Padilla [facility] DIABETES TESTING REPORTS 2022-10-19 05:01:00 Doc evelyn Unassigned, [place] [facility] XR RIBS 3 VW RIGHT 2022-09-20 21:42:10 Cuba Bautista [facility] PATIENT FINANCIAL POLICY 2022-09-20 20:48:27 Doctor Unassigned, [place] [facility] XR CHEST 2 VW 2022-06-30 18:22:43 Radha Cui [facility] XR CHEST 2 VW 2022-05-17 20:52:56 Price Silveira [facility] BASIC METABOLIC PANEL (NA, K, CL, CO2, GLUCOSE, BUN, CREATININE, CA) 2022-05-17 20:36:00 Price Silveira [facility] CBC WITH DIFF 2022-05-17 20:36:00 Price Silveira [facility] CONSENT/REFUSAL FOR DIAGNOSIS AND TREATMENT 2022-05-17 19:39:56 Doctor Unassigned, [place] [facility] POCT HEMOGLOBIN A1C TEST 2022-04-09 14:57:00 Zacarias Ocampo [facility] ASSIGNMENT OF BENEFITS 2022-04-09 14:35:27 Docto r Unassigned, [place] [facility] DME/SUPPLY JUSTIFICATION 2022-03-29 05:01:00 Doc evelyn Unassigned, [place] [facility] REFERRAL- REQUEST/RESPONSE 2022-01-05 05:01:00 Doctor Unassigned, [place] [facility] REFERRAL- REQUEST/RESPONSE 2021-12-11 05:01:00 Doctor Unassigned, [place] [facility] POCT HEMOGLOBIN A1C TEST 2021-12-04 19:29:00 Zacarias Ocampo [facility] PHYSICIAN ORDERS 2021-11-19 05:01:00 Doctor Erica signed, [place] [facility] Encounters Start Date/Time End Date/Time Encounter Type Admission Type Attending Clinicians Care Facility Care Department Encounter ID Source 2022-11-30 11:27:00 Outpatient STLMLC ST[facility] [id number] [facility] 2022-09-03 10:19:00 Outpatient Mira uMniz STLMLC STLMLC [id number] [facility] 2022-07-05 17:10:00 Outpatient HYMAN, Na STLMLC STLMLC [id number] [facility] 2022-05-26 13:49:00 Outpatient Hyman, Na STLMLC STLMLC [id number] [facility] 2022-02-24 10:26:00 Outpatient Hyman, Na STLMLC STLMLC [id number] [facility] 2022-01-20 13:41:00 Outpatient Hyman, Na STLMLC STLMLC [id number] [facility] 2021-10-20 09:42:01 Outpatient Hyman, Na STLMLC STLMLC [id number] [facility] 2021-10-13 09:44:01 Outpatient Hyman, Na STLMLC STLMLC [id number] [facility] 2021-08-07 11:32:00 Outpatient Hyman, Na STLMLC STLMLC [id number] [facility] 2021-08-03 14:29:01 Outpatient Hyman, Na STLMLC STLMLC [id number] [facility] 2021-07-29 15:09:01 Outpatient Hyman, Na STLMLC STLMLC [id number] [facility] 2021-07-22 12:49:36 Outpatient Hyman, Na STLMLC STLMLC [id number] [facility] 2021-07-22 12:43:02 Outpatient Hyman, Na STLMLC STLMLC [id number] [facility] 2021-07-22 12:39:59 Outpatient Hyman, Na STLMLC STLMLC [id number] [facility] 2021-07-22 12:39:45 Outpatient Hyman, Na STLMLC STLMLC [id number] [facility] 2021-07-22 12:13:12 Outpatient Hyman, Na STLMLC STLMLC [id number] [facility] 2021-07-22 12:12:47 Outpatient Hyman, Na STLMLC STLMLC [id number] [facility] 2021-07-22 11:46:09 Outpatient Hyman, Na STLMLC STLMLC [id number] [facility] 2021-07-22 11:45:18 Outpatient Hyman, Na STLMLC STLMLC [id number] [facility] 2021-07-22 11:26:16 Outpatient Abdiel, Na STLMLC STLMLC [id number] [facility] 2021-07-22 11:05:41 Outpatient Hyman, Na STLMLC STLMLC [id number] [facility] 2025-03-04 14:30:00 2025-03-04 14:30:00 Outpatient ANASTASIA MITCHELL [facility] [id number] [facility] 2025-02-04 15:40:00 2025-02-04 16:39:52 Office Visit Rasheeda Nayak [facility] [id number] [facility] 2025-01-27 00:00:00 2025-01-29 12:26:[address] [facility] [id number] [facility] 2025-01-16 00:00:00 2025-01-16 10:46:49 Telephone Anastasia Mann [facility] [id number] [facility] 2025-01-13 00:00:00 2025-01-14 08:11:12 Patient Secure Msg Anastasia Mann Nuria [facility] [id number] [id number] [id number] [id number] [facility] 2025-01-11 00:00:00 2025-01-11 14:15:[address] [facility] [id number] [id number] [id number] [facility] 2025-01-07 00:00:00 2025-01-08 10:58:32 Patient Secure Msg Rasheeda Mead [facility] [id number] [id number] [id number] [id number] [facility] 2025-01-07 00:00:00 2025-01-07 14:23:50 Patient Secure Msg Rasheeda Mead [facility] [id number] [id number] [id number] [id number] [facility] 2025-01-07 00:00:00 2025-01-07 13:46:08 RefAllyn Soto [facility] [id number] 350.1.13.10 4.2.7.2.686 [id number] [facility] 2024-12-17 00:00:00 2024-12-19 11:11:01 Telephone Ashley Lund, Ashley Torres [facility]ECTO?[facility] OFFICE BUILDING 1.84.114 350.1.13.10 4.2.7.2.686 [id number] [facility] 2024-12-10 00:00:00 2024-12-17 15:37:48 Telephone Ashley Lund La Neria [facility] MED[facility] OFFICE BUILDING 1.84.114 350.1.13.10 4.2.7.2.686 [id number] 220 [id number] [facility] 2024-11-12 14:20:00 2024-11-12 15:03:02 Office Visit R MeadRasheeda pal [facility] PER[facility] MED[facility] OFFICE BUILDING 1.840.114 350.1.13.10 4.2.7.2.686 [id number] [facility] 2024-11-12 14:20:00 2024-11-12 14:20:00 Outpatient R [facility]AD [facility] [id number] [facility] 2024-11-12 13:30:00 2024-11-12 13:55:46 Office Visit R STEPHANY MANNKayla [facility] MEDICAL OFFICE BUILDING 1.2.840.114 350.1.13.10 4.2.7.2.686 [id number] 220 [id number] [facility] 2024-10-25 00:00:00 2024-10-25 09:55:18 [facility] 1.2.840.114 350.1.13.10 4.2.7.2.686 [id number] 220 [id number] [facility] 2024-10-24 00:00:00 2024-10-24 16:01:[address] OFF[facility] BU[facility] 1.2840.114 350.1.13.10 4.2.7.2.686 [id number] 220 [id number] [facility] 2024-10-24 00:00:00 2024-10-24 10:51:[address] [facility] MED[facility] OFF[facility] BUILD[facility] 1.2840.114 350.1.13.10 4.2.7.2.686 [id number] 044 [id number] [facility] 2024-10-16 00:00:00 2024-10-23 12:32:31 Patient Secure Msg [facility] ProvidenceF[facility] OFF[facility] BUILD[facility] 1.2840.114 350.1.13.10 4.2.7.2.686 [id number] 044 [id number] [facility] 2024-10-10 00:00:00 2024-10-12 12:37:34 Refill Indra, Rasheeda [facility] OFF[facility] BUILD[facility] 1.2840.114 350.1.13.10 4.2.7.2.686 [id number] 044 [id number] [facility] 2024-10-10 00:00:00 2024-10-10 16:02:53 Refill Indra, Jaea [facility] MEDICAL OFFICE BUILDING 1.84114 350.1.13.10 4.2.7.2.686 [id number] 044 [id number] [facility] 2024-10-10 00:00:00 2024-10-10 15:20:39 Refill Allyn Franklin [facility] OFFICE BUILDING 1.114 350.1.13.10 4.2.7.2.686 [id number] 044 [id number] [facility] 2024-09-21 00:00:00 2024-09-21 11:12:05 Refill Presley [facility] MED[facility] OFFICE BUILDING 1.114 350.1.13.10 4.2.7.2.686 [id number] 044 [id number] [facility] 2024-08-30 15:00:00 2024-08-30 16:25:21 Outpatient R SILVIA EATON [facility] [id number] [facility] 2024-08-30 15:00:00 2024-08-30 15:20:00 Urgent Care Silvia Eaton, Attending [facility] MED[facility] OFFICE BUILDING 1.84.114 350.1.13.10 4.2.7.2.686 [id number] [facility] 2024-08-24 14:00:00 2024-08-24 14:37:36 Outpatient R RASHEEDA MEAD FAKEHA [facility] [id number] [facility] 2024-08-24 14:00:00 2024-08-24 14:37:36 [facility] OFF[facility] BUILD[facility] 1.84.114 350.1.13.10 4.2.7.2.686 [id number] [facility] 2024-08-14 13:40:00 2024-08-14 13:40:00 Outpatient R MEAD, RASHEEDA MEAD, RASHEEDA [facility] [id number] [facility] 2024-07-18 00:00:00 2024-07-20 21:35:21 Refill RafalrembertoAllyn [facility] MED[facility] OFFICE BUILDING 1.840.114 350.1.13.10 4.2.7.2.686 [id number] 044 [id number] [facility] 2024-07-06 18:20:00 2024-07-06 18:48:21 Outpatient R IDA LE [facility] [id number] [facility] 2024-07-06 18:20:00 2024-07-06 18:48:21 Urgent Care Ida Le Unknown, Attending [facility] MED[facility] OFFICE BUILDING 1.840.114 350.1.13.10 4.2.7.2.686 [id number] [facility] 2024-05-18 10:00:00 2024-05-18 11:17:58 Forming Department Supervisor Visit Lab, Maciej - Willy Rojo Lab, Ang - Db [facility] MED[facility] OFFICE BUILDING 1.840.114 350.1.13.10 4.2.7.2.686 [id number] [facility] 2024-05-18 10:00:00 2024-05-18 10:00:00 Outpatient R WILLY WILLIAMSON [facility] [id number] [facility] 2024-05-14 14:30:00 2024-05-14 15:02:58 Office Visit Anastasia Mann [facility] MED[facility] OFFICE BUILDING 1.840.114 350.1.13.10 4.2.7.2.686 [id number] [facility] 2024-05-14 13:00:00 2024-05-14 13:57:58 Outpatient R RASHEEDA MEAD FAKEHA [facility] [id number] [facility] 2024-05-14 13:00:00 2024-05-14 13:57:58 [facility] OFF[facility] BUILD[facility] 1..840.114 350.1.13.10 4.2.7.2.686 [id number] [facility] 2024-05-11 14:00:00 2024-05-11 14:00:00 Outpatient R ALLYN [facility] [id number] [facility] 2024-04-18 00:00:00 2024-04-18 14:04:52 Refill Danelle Padilla [facility] MED[facility] OFFICE BUILDING 1..840.114 350.1.13.10 4.2.7.2.686 [id number] 220 [id number] [facility] 2024-04-10 00:00:00 2024-04-10 12:56:54 Refill [facility] PERFECTO?[facility] MED[facility] OFFICE BUILDING 1..840.114 350.1.13.10 4.2.7.2.686 [id number] 044 [id number] [facility] 2024-03-10 00:00:00 2024-03-12 07:43:56 Refill [facility] PERFECTO?[facility] MED[facility] OFFICE BUILDING 1..840.114 350.1.13.10 4.2.7.2.686 [id number] 044 [id number] [facility] 2024-03-05 00:00:00 2024-03-05 09:55:54 Refill Radha Shaffer [facility] MED[facility] OFFICE BUILDING 1.2840.114 350.1.13.10 4.2.7.2.686 [id number] 044 [id number] [facility] 2024-01-15 00:00:00 2024-01-16 12:42:34 Brian Franklin [facility] OFF[facility] 1.2.840.114 350.1.13.10 4.2.7.2.686 [id number] 044 [id number] [facility] 2024-01-15 00:00:00 2024-01-16 10:46:33 Brian Franklin [facility] OFF[facility] BUILD[facility] 1.2.840.114 350.1.13.10 4.2.7.2.686 [id number] 044 [id number] [facility] 2023-12-01 00:00:00 2024-01-07 18:24:39 Patient Secure Msg Doctor Unassigned, [place] [facility] 1.2.840.114 350.1.13.10 4.2.7.2.686 [id number] 019 [id number] [facility] 2023-12-01 00:00:00 2024-01-07 18:24:10 Patient Secure Msg Doctor Unassigned, [place] [facility] 1.2.840.114 350.1.13.10 4.2.7.2.686 [id number] 019 [id number] [facility] 2023-11-04 00:00:00 2023-12-13 02:39:59 Mobile Device Encounter MichelstuartHieu sarkar [facility] NAL BUILDING 1.2.840.114 350.1.13.10 4.2.7.2.686 [id number] 044 [id number] [facility] 2023-11-07 00:00:00 2023-12-10 18:20:51 Patient Secure M[facility] 1.2.840.114 350.1.13.10 4.2.7.2.686 [id number] 044 [id number] [facility] 2023-12-01 00:00:00 2023-12-01 09:53:26 Letter (Out) [facility] 1.2840.114 350.1.13.10 4.2.7.2.686 [id number] 019 [id number] [facility] 2023-11-24 00:00:00 2023-11-25 15:55:07 Refill Erin Arellano [facility] MED[facility] OFFICE BUILDING 1.84.114 350.1.13.10 4.2.7.2.686 [id number] 220 [id number] [facility] 2023-11-24 10:45:00 2023-11-24 10:45:00 Forming Department Supervisor Visit Lab, [facility] OFF[facility] BUILDING 1.2114 350.1.13.10 4.2.7.2.686 [id number] [facility] 2023-11-24 10:45:00 2023-11-24 10:21:30 [facility] [id number] 2023-11-14 00:00:00 2023-11-14 06:55:19 Refill Kinga [facility] MEDICAL OFFICE BUILDING 1.284.114 350.1.13.10 4.2.7.2.686 [id number] 044 [id number] [facility] 2023-11-08 08:45:00 2023-11-08 09:00:00 Forming Department Supervisor Visit Lab, Maciej Franklin [facility] MED[facility] OFFICE BUILDING 1.2840.114 350.1.13.10 4.2.7.2.686 [id number] 353 [id number] [facility] 2023-11-08 08:45:00 2023-11-08 08:45:00 Outpatient R ALLYN [facility] [id number] [facility] 2023-11-04 16:45:00 2023-11-04 16:45:00 Forming Department Supervisor Visit Lab, Maciej - Cedrick Franklin [facility] MEDICAL OFFICE BUILDING 1..840.114 350.1.13.10 4.2.7.2.686 [id number] [facility] 2023-11-04 15:00:00 2023-11-04 16:17:40 Outpatient R ALLYN [facility] [id number] [facility] 2023-11-04 15:00:00 2023-11-04 16:17:40 Office Visit Rafalremberto [facility] MEDICAL OFFICE BUILDING 1..840.114 350.1.13.10 4.2.7.2.686 [id number] 044 [id number] [facility] 2023-10-11 19:40:00 2023-10-11 20:00:00 Urgent Care Kira Layton Unknown, Attending [facility] MEDICAL OFFICE BUILDING 1..840.114 350.1.13.10 4.2.7.2.686 [id number] [facility] 2023-10-11 19:40:00 2023-10-11 19:40:00 Outpatient R KIRA LAYTON [facility] [id number] [facility] 2023-09-13 00:00:00 2023-09-13 00:00:00 Refill Kinga [facility] MEDICAL OFFICE BUILDING 1..840.114 350.1.13.10 4.2.7.2.686 [id number] 044 [id number] [facility] 2023-09-05 00:00:00 2023-09-05 00:00:00 [facility] OFF[facility] 1.2840.114 350.1.13.10 4.2.7.2.686 [id number] 044 [id number] [facility] 2023-09-05 00:00:00 2023-09-05 00:00:00 Patient Secure Msg [facility] OFF[facility] BUILD[facility] 1.20.114 350.1.13.10 4.2.7.2.686 [id number] 044 [id number] [facility] 2023-09-05 00:00:00 2023-09-05 00:00:00 Refill Randy [facility] PERFECTO?[facility] MED[facility] OFFICE BUILDING 1.20.114 350.1.13.10 4.2.7.2.686 [id number] 220 [id number] [facility] 2023-09-05 00:00:00 2023-09-05 00:00:00 Refill [facility] OFF[facility] BUILDING 1.2840.114 350.1.13.10 4.2.7.2.686 [id number] 220 [id number] [facility] 2023-09-03 00:00:00 2023-09-03 00:00:00 Refill [facility] OFF[facility] BUILDING 1.2840.114 350.1.13.10 4.2.7.2.686 [id number] 044 [id number] [facility] 2023-09-03 00:00:00 2023-09-03 00:00:00 Refill Randy [facility] OFFICE BUILD[facility] 1.2840.114 350.1.13.10 4.2.7.2.686 [id number] 220 [id number] [facility] 2023-09-02 00:00:00 2023-09-02 00:00:00 Refill Danelle Padilla [facility] MEDICAL OFFICE BUILDING 1.84.114 350.1.13.10 4.2.7.2.686 [id number] 044 [id number] [facility] 2023-07-17 00:00:00 2023-07-17 00:00:00 Refill Erin Arellano [facility] MEDICAL OFFICE BUILDING 1.84.114 350.1.13.10 4.2.7.2.686 [id number] [facility] 2023-07-15 09:38:23 2023-07-15 23:59:00 Outpatient R ALLYN [facility] [id number] [facility] 2023-07-15 09:38:23 2023-07-15 23:59:00 Hospital Encounter Allyn Franklin [facility] 1.84.114 350.1.13.10 4.2.7.2.686 [id number] [facility] 2023-07-03 00:00:00 2023-07-03 00:00:00 Refill Mely Ocampo [facility] MED[facility] OFFICE BUILDING 1.84.114 350.1.13.10 4.2.7.2.686 [id number] 220 [id number] [facility] 2023-06-15 00:00:00 2023-06-15 00:00:00 Patient Secure Msg Doctor Unassigned, [place] [facility] 1.84.114 350.1.13.10 4.2.7.2.686 [id number] 044 [id number] [facility] 2023-06-10 15:45:00 2023-06-10 15:58:39 Forming Department Supervisor Visit Lab, Ang - Db [facility] PER[facility]ECTO[facility] 1.84114 350.1.13.10 4.2.7.2.686 [id number] [facility] 2023-06-10 14:40:00 2023-06-10 15:35:24 Outpatient R ALLYN [facility] [id number] [facility] 2023-06-10 14:40:00 2023-06-10 15:35:[address] [facility] OFF[facility] BUILD[facility] 1.114 350.1.13.10 4.2.7.2.686 [id number] 044 [id number] [facility] 2023-06-10 00:00:00 2023-06-10 00:00:00 Orders Only Doctor Unassigned, [place] [facility] 1.114 350.1.13.10 4.2.7.2.686 [id number] [facility] 2023-06-08 00:00:00 2023-06-08 00:00:00 Refill José Luis Padillaamee [facility] MEDICAL OFFICE BUILDING 1.84.114 350.1.13.10 4.2.7.2.686 [id number] [facility] 2023-05-27 14:40:00 2023-05-27 14:40:00 Outpatient R ALLYN [facility] [id number] [facility] 2023-05-18 00:00:00 2023-05-18 00:00:00 Refill [facility] PERFECTO?[facility] MED[facility] OFFICE BUILDING 1.84.114 350.1.13.10 4.2.7.2.686 [id number] 044 [id number] [facility] 2023-05-06 00:00:00 2023-05-06 00:00:00 Refill Danelle Padilla [facility] 1.2.840.114 350.1.13.10 4.2.7.2.686 [id number] 044 [id number] [facility] 2023-05-06 00:00:00 2023-05-06 00:00:00 Patient Secure Msg Doctor Unassigned, [place] [facility] MEDICAL OFFICE BUILDING 1.2.840.114 350.1.13.10 4.2.7.2.686 [id number] 220 [id number] [facility] 2023-03-25 13:30:00 2023-03-25 13:30:00 Outpatient R ERIN ARELLANO [facility] [id number] [facility] 2023-03-01 00:00:00 2023-03-01 00:00:00 Patient Secure Msg [facility] PER[facility]ECTO?[facility] MED[facility] OFFICE BUILDING 1..840.114 350.1.13.10 4.2.7.2.686 [id number] 044 [id number] [facility] 2023-02-24 00:00:00 2023-02-24 00:00:00 Telephone Kinga [facility] MEDICAL OFFICE BUILDING 1.2.840.114 350.1.13.10 4.2.7.2.686 [id number] 044 [id number] [facility] 2023-02-22 00:00:00 2023-02-22 00:00:00 Orders Only Doctor Unassigned, [place] [facility] 1.2840.114 350.1.13.10 4.2.7.2.686 [id number] [facility] 2023-02-22 00:00:00 2023-02-22 00:00:00 Telephone [facility] PERFECTO?[facility] MEDICAL OFFICE BUILDING 1.840.114 350.1.13.10 4.2.7.2.686 [id number] 044 [id number] [facility] 2023-02-19 00:00:00 2023-02-19 00:00:00 Refill Mely Ocampo [facility] MEDICAL OFFICE BUILDING 1.284.114 350.1.13.10 4.2.7.2.686 [id number] 220 [id number] [facility] 2023-02-19 00:00:00 2023-02-19 00:00:00 Refill [facility] 1.840.114 350.1.13.10 4.2.7.2.686 [id number] 044 [id number] [facility] 2023-02-18 15:00:00 2023-02-18 16:02:42 Outpatient R ALLYN [facility] [id number] [facility] 2023-02-18 15:00:00 2023-02-18 16:02:42 Office Visit [facility] PERFECTO?[facility] OFFICE BUILDING 1.2840.114 350.1.13.10 4.2.7.2.686 [id number] 044 [id number] [facility] 2023-02-04 13:40:00 2023-02-04 13:40:00 Outpatient R ALLYN [facility] [id number] [facility] 2022-12-31 00:00:00 2022-12-31 00:00:00 Orders Only Doctor Unassigned, [place] [facility] 1.284.114 350.1.13.10 4.2.7.2.686 [id number] [id number] [facility] 2022-12-30 00:00:00 2022-12-30 00:00:00 Abstract [facility] PERFECTO?[facility] OFFICE BUILDING 1.2.840.114 350.1.13.10 4.2.7.2.686 [id number] 044 [id number] [facility] 2022-12-17 00:00:00 2022-12-17 00:00:00 Telephone [facility]ECTO?[facility] OFF[facility] BUILD[facility] 1.2840.114 350.1.13.10 4.2.7.2.686 [id number] 044 [id number] [facility] 2022-12-08 00:00:00 2022-12-08 00:00:00 Telephone [facility]ECTO?[facility] OFF[facility] BUILD[facility] 1.2840.114 350.1.13.10 4.2.7.2.686 [id number] 044 [id number] [facility] 2022-12-04 10:15:00 2022-12-04 10:30:00 Forming Department Supervisor Visit Pob, Adc Lab Main Kinga [facility] NAL BUILDING 1.84.114 350.1.13.10 4.2.7.2.686 [id number] [facility] 2022-12-04 10:15:00 2022-12-04 10:15:00 Outpatient R RAFALRembertoALLYN [facility] [id number] [facility] 2022-12-03 13:40:00 2022-12-03 15:22:03 Outpatient R RAFALRembertoALLYN [facility] [id number] [facility] 2022-12-03 13:40:00 2022-12-03 15:22:03 Office Visit [facility] PERFECTO?[facility] BUILDING 1.2.840.114 350.1.13.10 4.2.7.2.686 [id number] 044 [id number] [facility] 2022-12-03 00:00:00 2022-12-03 00:00:00 Orders Only Doctor Unassigned, [place] [facility] 1.840.114 350.1.13.10 4.2.7.2.686 [id number] [facility] 2022-11-30 00:00:00 2022-11-30 00:00:00 Brian Mely Ocampo [facility] MEDICAL OFFICE BUILDING 1..840.114 350.1.13.10 4.2.7.2.686 [id number] [facility] 2022-11-12 13:40:00 2022-11-12 13:40:00 Outpatient ALLYN DOMINGUEZ CHRISTINE [facility] [id number] [facility] 2022-10-22 11:00:00 2022-10-22 11:00:00 Outpatient R ALLYN [facility] [id number] [facility] 2022-10-19 14:00:00 2022-10-19 15:34:14 Outpatient R RANDY [facility] [id number] [facility] 2022-10-19 14:00:00 2022-10-19 15:34:14 Office Visit Randy [facility] MED[facility] OFFICE BUILDING 1..840.114 350.1.13.10 4.2.7.2.686 [id number] [facility] 2022-10-19 00:00:00 2022-10-19 00:00:00 Orders Only Doctor Unassigned, [place] [facility] 1.2840.114 350.1.13.10 4.2.7.2.686 [id number] [facility] 2022-09-21 10:00:00 2022-09-21 10:38:29 Outpatient R ALLYN FRANKLIN ALLYN [facility] [id number] [facility] 2022-09-21 10:00:00 2022-09-21 10:38:29 Office Visit Allyn Franklin [facility] BU[facility] 1.2.840.114 350.1.13.10 4.2.7.2.686 [id number] 044 [id number] [facility] 2022-09-20 16:23:19 2022-09-20 23:59:00 Outpatient R CUBA BAUTISTA [facility] [id number] [facility] 2022-09-20 16:23:19 2022-09-20 23:59:00 Hospital Encounter [place] Bautista [facility] 1.2.840.114 350.1.13.10 4.2.7.2.686 [id number] [facility] 2022-09-20 16:00:00 2022-09-20 16:33:11 Urgent Care [place] Bautista Unknown, Attending [facility] 1.2.840.114 350.1.13.10 4.2.7.2.686 [id number] [facility] 2022-09-20 00:00:00 2022-09-20 00:00:00 Orders Only Doctor Unassigned, [place] [facility] 1.2840.114 350.1.13.10 4.2.7.2.686 [id number] [facility] 2022-09-03 00:00:00 2022-09-03 00:00:00 [facility] [id number] [facility] 2022-06-30 12:10:46 2022-06-30 23:59:00 Outpatient R RADHA CUI III [facility] [id number] [facility] 2022-06-30 12:10:46 2022-06-30 23:59:00 Hospital Encounter Radha Cui [facility] 1.2.840.114 350.1.13.10 4.2.7.2.686 [id number] [facility] 2022-06-30 12:00:00 2022-06-30 13:01:55 Urgent Care Radha Cui Unknown, Attending [facility] 1.2.840.114 350.1.13.10 4.2.7.2.686 [id number] [facility] 2022-06-03 00:00:00 2022-06-03 00:00:00 Telephone Mely Ocampo [facility] 1.2.840.114 350.1.13.10 4.2.7.2.686 [id number] [facility] 2022-05-31 00:00:00 2022-05-31 00:00:00 OFFICE VISIT ESTAB PT LEVEL 4 STLMLC STLC [id number] [facility] 2022-05-17 13:46:00 2022-05-17 16:13:00 Emergency X JORDANAPRICE AMADOR [facility] ERT [id number] [facility] 2022-05-17 13:46:00 2022-05-17 16:13:00 Emergency Price Silveira [facility] 1.2.840.114 350.1.13.10 4.2.7.2.686 [id number] [facility] 2022-04-09 10:00:00 2022-04-09 10:26:17 Outpatient R MELY OCAMPO [facility] [id number] [facility] 2022-04-09 10:00:00 2022-04-09 10:26:17 Office Visit Brown, [facility] MED[facility] OFF[facility] BUILDING 1.2.840.114 350.1.13.10 4.2.7.2.686 [id number] 220 [id number] [facility] 2022-04-09 00:00:00 2022-04-09 00:00:00 Orders Only Doctor Unassigned, [place] [facility] 1.2.840.114 350.1.13.10 4.2.7.2.686 [id number] [id number] [facility] 2022-03-29 00:00:00 2022-03-29 00:00:00 Telephone Terrence [facility] 1.2.840.114 350.1.13.10 4.2.7.2.686 [id number] 220 [id number] [facility] 2022-03-29 00:00:00 2022-03-29 00:00:00 Orders Only Doctor Unassigned, [place] [facility] 1.2.840.114 350.1.13.10 4.2.7.2.686 [id number] [id number] [facility] 2022-03-05 00:00:00 2022-03-05 00:00:00 [facility] [id number] [facility] 2022-02-26 00:00:00 2022-02-26 00:00:00 SUB ANNUAL [facility] [id number] [facility] 2022-02-26 00:00:00 2022-02-26 00:00:00 OFFICE VISIT EST PT [facility]EVEL 3 [facility] [id number] [facility] 2022-01-19 00:00:00 2022-01-19 00:00:00 [facility]EL[facility] [id number] [facility] 2022-01-05 00:00:00 2022-01-05 00:00:00 Refill Hair, [facility] OFF[facility] BU[facility] 1.0.114 350.1.13.10 4.2.7.2.686 [id number] [facility] 2022-01-05 00:00:00 2022-01-05 00:00:00 Orders Only Doctor Unassigned, [place] [facility] 1.2840.114 350.1.13.10 4.2.7.2.686 [id number] [id number] [facility] 2021-12-16 00:00:00 2021-12-16 00:00:00 (TEL) STLMLC STLC [id number] [facility] 2021-12-11 00:00:00 2021-12-11 00:00:00 Telephone Jl [facility] 1.114 350.1.13.10 4.2.7.2.686 [id number] [facility] 2021-12-11 00:00:00 2021-12-11 00:00:00 Orders Only Doctor Unassigned, [place] [facility] 1.2840.114 350.1.13.10 4.2.7.2.686 [id number] [id number] [facility] 2021-12-06 00:00:00 2021-12-06 00:00:00 [facility] 1..114 350.1.13.10 4.2.7.2.686 [id number] 220 [id number] [facility] 2021-12-04 15:15:00 2021-12-04 15:30:00 Forming Department Supervisor [facility] 1..114 350.1.13.10 4.2.7.2.686 [id number] [facility] 2021-12-04 14:30:00 2021-12-04 14:45:12 Outpatient R MELY OCAMPO [facility] [id number] [facility] 2021-12-04 14:30:00 2021-12-04 14:45:12 [facility] 1..840.114 350.1.13.10 4.2.7.2.686 [id number] [facility] 2021-12-04 14:30:00 2021-12-04 14:30:00 Outpatient R MELY OCAMPO [facility] [id number] [facility] 2021-11-19 00:00:00 2021-11-19 00:00:00 Orders Only Doctor Unassigned, [place] [facility] 1.840.114 350.1.13.10 4.2.7.2.686 [id number] [id number] [facility] 2021-11-11 00:00:00 2021-11-11 00:00:00 [facility] 1.84.114 350.1.13.10 4.2.7.2.686 [id number] 198 [id number] [facility] 2021-10-22 00:00:00 2021-10-22 00:00:00 Telephone Jl [facility] PERFECTO?[facility] 1.840.114 350.1.13.10 4.2.7.2.686 [id number] [facility] 2021-10-16 08:15:00 2021-10-16 08:40:59 Office Visit Jl [facility] PERFECTO?[facility] [place] [facility] 1.840.114 350.1.13.10 4.2.7.2.686 [id number] [facility] 2021-10-16 08:15:00 2021-10-16 08:15:00 Outpatient R DIPAK HAIR [facility] [id number] [facility] 2021-10-16 08:15:00 2021-10-16 08:15:00 Outpatient DIPAK RODRIGUEZ [facility] [id number] [facility] 2021-10-14 00:00:00 2021-10-14 00:00:00 Case Management Nolberto Fraser [facility] 1..840.114 350.1.13.10 4.2.7.2.686 [id number] [facility] 2021-10-13 18:25:14 2021-10-13 23:59:00 Hospital [facility] [place] [facility] 1.840.114 350.1.13.10 4.2.7.2.686 [id number] [facility] 2021-10-13 18:25:13 2021-10-13 23:59:00 Outpatient R NOLBERTO FRASER [facility] [id number] [facility] 2021-10-13 18:25:13 2021-10-13 23:59:00 Hospital Encounter Nolberto [facility] [place] [facility] 1.2840.114 350.1.13.10 4.2.7.2.686 [id number] [facility] 2021-10-13 18:00:00 2021-10-13 18:34:57 Urgent Care Freda Nolberto Elle [facility] PER[facility]ECTO?[facility] [place] [facility] 1..840.114 350.1.13.10 4.2.7.2.686 [id number] [facility] 2021-09-28 00:00:00 2021-09-28 00:00:00 Telephone Terrence Mely [facility] 1.2.840.114 350.1.13.10 4.2.7.2.686 [id number] 220 [id number] [facility] 2021-09-20 00:00:00 2021-09-20 00:00:00 [facility] 1.2.840.114 350.1.13.10 4.2.7.2.686 [id number] 220 [id number] [facility] 2021-09-09 00:00:00 2021-09-09 00:00:00 (TEL) STLMLC STLMLC [id number] [facility] 2021-08-07 00:00:00 2021-08-07 00:00:00 (TEL) STLMLC STLMLC [id number] [facility] 2021-08-03 00:00:00 2021-08-03 00:00:00 OFFICE VISIT EST PT LEVEL 3 STLMLC STLMLC [id number] [facility] 2021-07-20 00:00:00 2021-07-20 00:00:00 (TEL) STLMLC STLMLC [id number] [facility] 2021-07-17 14:30:00 2021-07-17 14:30:00 Outpatient MELY PRAKASH [facility] [id number] [facility] 2021-06-12 13:30:00 2021-06-12 13:30:00 Outpatient MELY PRAKASH [facility] [id number] [facility] 2021-05-20 00:00:00 2021-05-20 00:00:00 (TEL) STLMLC STLMLC [id number] [facility] 2021-05-14 00:00:00 2021-05-14 00:00:00 Orders Only Doctor Unassigned, [place] [facility] 1.2.840.114 350.1.13.10 4.2.7.2.686 [id number] [id number] [facility] 2021-04-27 00:00:00 2021-04-27 00:00:00 (TEL) STLMLC STLMLC [id number] [facility] 2021-04-15 00:00:00 2021-04-15 00:00:00 (TEL) STLMLC STLMLC [id number] [facility] 2021-04-10 14:30:00 2021-04-10 17:01:25 [facility] [id number] [facility] 2021-04-10 13:48:19 2021-04-10 17:01:25 Office Visit Terrence [facility] 1.2.840.114 350.1.13.10 4.2.7.2.686 [id number] 220 [id number] [facility] 2021-04-10 00:00:00 2021-04-10 00:00:00 Orders Only Doctor Unassigned, [place] [facility] 1.2840.114 350.1.13.10 4.2.7.2.686 [id number] [id number] [facility] 2021-03-23 00:00:00 2021-03-23 00:00:00 Telephone [facility] 1.2.840.114 350.1.13.10 4.2.7.2.686 [id number] 220 [id number] [facility] 2021-03-13 00:00:00 2021-03-13 00:00:00 Orders Only Doctor Unassigned, [place] [facility] 1.2.840.114 350.1.13.10 4.2.7.2.686 [id number] [facility] 2021-03-13 00:00:00 2021-03-13 00:00:00 Telephone Mely Ocampo [facility] Building 1.2.840.114 350.1.13.10 4.2.7.2.686 [id number] 220 [id number] [facility] 2021-03-09 00:00:00 2021-03-09 00:00:00 Telephone Mely Ocampo [facility] Building 1.2.840.114 350.1.13.10 4.2.7.2.686 [id number] 220 [id number] [facility] 2021-03-09 00:00:00 2021-03-09 00:00:00 Telephone Mely Ocampo [facility] Building 1.2.840.114 350.1.13.10 4.2.7.2.686 [id number] 220 [id number] [facility] 2021-02-27 14:01:29 2021-02-27 14:16:29 Forming Department Supervisor Visit Lab, Maciej Philip Terrence [facility] Medical Office Building 1.2.840.114 350.1.13.10 4.2.7.2.686 [id number] [facility] 2021-02-27 12:47:46 2021-02-27 13:58:29 Office Visit Terrence [facility] Medical Office Building 1.2.840.114 350.1.13.10 4.2.7.2.686 [id number] 220 [id number] [facility] 2021-02-27 13:00:00 2021-02-27 13:00:00 Outpatient MELY PRAKASH [facility] [id number] [facility] 2021-02-25 10:15:00 2021-02-25 10:15:00 Outpatient MELY PRAKASH [facility] [id number] [facility] 2021-02-25 09:02:52 2021-02-25 09:17:52 Forming Department Supervisor Visit 2, Adc Lab Terrence [facility] Building 1.2.840.114 350.1.13.10 4.2.7.2.686 [id number] [facility] 2021-02-25 09:02:52 2021-02-25 09:17:52 Forming Department Supervisor Visit 2, Adc Lab Terrence [facility] 1.2.840.114 350.1.13.10 4.2.7.2.686 [id number] 353 [id number] [facility] 2021-02-24 00:00:00 2021-02-24 00:00:00 Orders Only Doctor Unassigned, [place] [facility] 1.2.840.114 350.1.13.10 4.2.7.2.686 [id number] [id number] [facility] 2021-02-24 00:00:00 2021-02-24 00:00:00 Orders Only Doctor Unassigned, [place] [facility] 1.2.840.114 350.1.13.10 4.2.7.2.686 [id number] [id number] [facility] 2021-02-19 00:00:00 2021-02-19 00:00:00 [facility] 1.2.840.114 350.1.13.10 4.2.7.2.686 [id number] 220 [id number] [facility] 2021-02-19 00:00:00 2021-02-19 00:00:00 Telephone Padilla [facility] 1.2.840.114 350.1.13.10 4.2.7.2.686 [id number] 220 [id number] [facility] 2021-02-17 00:00:00 2021-02-17 00:00:00 Telephone Mely Ocampo [facility] Yadira carrillo Medical Office Building 1.2.840.114 350.1.13.10 4.2.7.2.686 [id number] 220 [id number] [facility] 2021-02-16 00:00:00 2021-02-16 00:00:00 Outpatient STLMLC STLMLC [id number] [facility] 2021-02-10 00:00:00 2021-02-10 00:00:00 Refill Randy [facility] 1.2.840.114 350.1.13.10 4.2.7.2.686 [id number] 220 [id number] [facility] 2021-02-10 00:00:00 2021-02-10 00:00:00 Refill Randy [facility] Building 1.2.840.114 350.1.13.10 4.2.7.2.686 [id number] 220 [id number] [facility] 2021-02-02 00:00:00 2021-02-02 00:00:00 Telephone Mely Ocampo [facility] Building 1.2.840.114 350.1.13.10 4.2.7.2.686 [id number] 220 [id number] [facility] 2021-01-12 00:00:00 2021-01-12 00:00:00 Outpatient STLMLC STLMLC [id number] [facility] 2021-01-09 14:41:17 2021-01-09 16:01:32 [facility] 1.2.840.114 350.1.13.10 4.2.7.2.686 [id number] [facility] 2021-01-09 15:00:00 2021-01-09 15:00:00 Outpatient R BROWN, MELY [facility] [id number] [facility] 2021-01-07 00:00:00 2021-01-07 00:00:00 Outpatient STLMLC STLMLC [id number] [facility] 2020-12-31 00:00:00 2020-12-31 00:00:00 Outpatient STLMLC STLMLC [id number] [facility] 2020-12-31 00:00:00 2020-12-31 00:00:00 Outpatient STLMLC STLMLC [id number] [facility] 2020-12-25 00:00:00 2020-12-25 00:00:00 Outpatient STLMLC STLMLC [id number] [facility] 2020-12-22 00:00:00 2020-12-22 00:00:00 [facility] 1.2.840.114 350.1.13.10 4.2.7.2.686 [id number] 220 [id number] 2020-12-22 00:00:00 2020-12-22 00:00:00 Refill Randy [facility] 1.2.840.114 350.1.13.10 4.2.7.2.686 [id number] 220 [id number] [facility] 2020-11-20 00:00:00 2020-11-20 00:00:00 Outpatient STLMLC STLMLC [id number] [facility] 2020-11-19 00:00:00 2020-11-19 00:00:00 Outpatient STLMLC STLMLC [id number] [facility] 2020-11-14 00:00:00 2020-11-14 00:00:00 Outpatient STLMLC STLMLC [id number] [facility] 2020-09-17 00:00:00 2020-09-17 00:00:00 Refill Randy [facility] 1.20.114 350.1.13.10 4.2.7.2.686 [id number] 220 [id number] 2020-09-17 00:00:00 2020-09-17 00:00:00 Refill Padilla, [facility] 1.2840.114 350.1.13.10 4.2.7.2.686 [id number] 220 [id number] [facility] 2020-09-12 00:00:00 2020-09-12 00:00:00 Outpatient STLMLC STLMLC [id number] [facility] 2020-09-08 00:00:00 2020-09-08 00:00:00 Outpatient STLMLC STLMLC [id number] [facility] 2020-09-04 00:00:00 2020-09-04 00:00:00 Outpatient STLMLC STLMLC [id number] [facility] 2020-08-26 00:00:00 2020-08-26 00:00:00 Refill [facility] 1.840.114 350.1.13.10 4.2.7.2.686 [id number] 220 [id number] 2020-08-26 00:00:00 2020-08-26 00:00:00 Outpatient STLMLC STLMLC [id number] [facility] 2020-08-26 00:00:00 2020-08-26 00:00:00 Refill [facility] 1.840.114 350.1.13.10 4.2.7.2.686 [id number] 220 [id number] [facility] 2020-08-26 00:00:00 2020-08-26 00:00:00 [facility] 1.2840.114 350.1.13.10 4.2.7.2.686 [id number] 220 [id number] [facility] 2020-08-20 00:00:00 2020-08-20 00:00:00 [facility] 1.2.840.114 350.1.13.10 4.2.7.2.686 [id number] 220 [id number] [facility] 2020-07-30 12:00:00 2020-07-30 12:00:00 Outpatient SHANIA GRANDE [facility] [id number] [facility] 2020-07-23 00:00:00 2020-07-23 00:00:00 [facility]ill [facility] 1.2.840.114 350.1.13.10 4.2.7.2.686 [id number] 220 [id number] [facility] 2020-07-23 00:00:00 2020-07-23 00:00:00 Telephone [facility] 1.2.840.114 350.1.13.10 4.2.7.2.686 [id number] 220 [id number] [facility] 2020-07-02 11:40:00 2020-07-02 11:40:00 Outpatient SHANIA GRANDE [facility] [id number] [facility] 2020-07-02 11:40:00 2020-07-02 11:40:00 Outpatient SHANIA GRANDE [facility] [id number] [facility] 2020-06-18 00:00:00 2020-06-18 00:00:00 Outpatient STLMLC STLMLC [id number] [facility] 2020-06-16 00:00:00 2020-06-16 00:00:00 Outpatient STLMLC STLMLC [id number] [facility] 2020-06-10 00:00:00 2020-06-10 00:00:00 Outpatient STLMLC STLMLC [id number] [facility] 2020-06-03 16:00:00 2020-06-03 16:00:00 [facility] [id number] [facility] 2020-04-30 00:00:00 2020-04-30 00:00:00 [facility] 1.2.840.114 350.1.13.10 4.2.7.2.686 [id number] 220 [id number] [facility] 2020-03-25 00:00:00 2020-03-25 00:00:00 Outpatient STLMLC STLMLC [id number] [facility] 2020-03-20 00:00:00 2020-03-20 00:00:00 Telephone Padilla [facility] 1.2.840.114 350.1.13.10 4.2.7.2.686 [id number] 220 [id number] [facility] 2020-03-11 13:20:00 2020-03-11 13:20:00 Outpatient [facility] Medicine [id number] [facility] 2020-03-11 00:00:00 2020-03-11 00:00:00 Orders Only Doctor Unassigned, [place] [facility] 1.2.840.114 350.1.13.10 4.2.7.2.686 [id number] [id number] [facility] 2020-03-04 16:36:00 2020-03-04 16:36:00 Outpatient [facility] [id number] [facility] 2020-02-28 08:40:00 2020-02-28 08:40:00 Outpatient [facility] [id number] [facility] 2020-02-21 00:00:00 2020-02-21 00:00:00 Refill Padilla, [facility] 1.2.840.114 350.1.13.10 4.2.7.2.686 [id number] 220 [id number] [facility] 2020-02-07 00:00:00 2020-02-07 00:00:00 Telephone [facility] 1.2.840.114 350.1.13.10 4.2.7.2.686 [id number] 220 [id number] [facility] 2020-01-30 00:00:00 2020-01-30 00:00:00 Telephone Randy [facility] 1.2.840.114 350.1.13.10 4.2.7.2.686 [id number] 220 [id number] [facility] 2020-01-29 16:26:36 2020-01-29 17:12:50 Office Visit Ranyd [facility] 1.2.840.114 350.1.13.10 4.2.7.2.686 [id number] 220 [id number] [facility] 2020-01-29 16:30:00 2020-01-29 16:30:00 Outpatient R RANDY [facility] [id number] [facility] 2020-01-29 00:00:00 2020-01-29 00:00:00 Orders Only Doctor Unassigned, [place] [facility] 1.2840.114 350.1.13.10 4.2.7.2.686 [id number] [facility] 2020-01-25 16:10:00 2020-01-25 16:10:00 Outpatient [facility] [id number] [facility] 2020-01-25 00:00:00 2020-01-25 00:00:00 Telephone Randy [facility] 1.2.840.114 350.1.13.10 4.2.7.2.686 [id number] 220 [id number] [facility] 2020-01-22 00:00:00 2020-01-22 00:00:00 Refill [facility]al Building 1.2.840.114 350.1.13.10 4.2.7.2.686 [id number] 220 [id number] [facility] 2020-01-21 00:00:00 2020-01-21 00:00:00 Refill [facility] 1.2.840.114 350.1.13.10 4.2.7.2.686 [id number] 220 [id number] [facility] 2020-01-21 00:00:00 2020-01-21 00:00:00 Telephone [facility] 1.2.840.114 350.1.13.10 4.2.7.2.686 [id number] 220 [id number] [facility] 2020-01-18 00:00:00 2020-01-18 00:00:00 Refill [facility] 1.2.840.114 350.1.13.10 4.2.7.2.686 [id number] 220 [id number] [facility] 2019-12-19 00:00:00 2019-12-19 00:00:00 Refill Perico Osman [facility] 1.2.840.114 350.1.13.10 4.2.7.2.686 [id number] 220 [id number] [facility] 2019-12-13 02:32:00 2019-12-13 02:32:00 Outpatient [facility] [id number] [facility] 2019-11-23 16:59:00 2019-11-23 16:59:00 [facility] [id number] 2019-10-16 00:00:00 2019-10-16 00:00:00 Refill [facility] 1.2.840.114 350.1.13.10 4.2.7.2.686 [id number] 220 [id number] [facility] 2019-09-19 08:36:02 2019-09-19 16:04:53 Telemedici ne Visit Randy [facility] Building 1.2.840.114 350.1.13.10 4.2.7.2.686 [id number] 220 [id number] [facility] 2019-09-19 15:30:00 2019-09-19 15:30:00 Outpatient R RANDY [facility] [id number] [facility] 2019-09-17 00:00:00 2019-09-17 00:00:00 Telephone Randy [facility] Building 1.2.840.114 350.1.13.10 4.2.7.2.686 [id number] 220 [id number] [facility] 2019-08-28 00:00:00 2019-08-28 00:00:00 Refill Randy [facility] Building 1.2.840.114 350.1.13.10 4.2.7.2.686 [id number] 220 [id number] [facility] 2019-08-03 13:00:00 2019-08-03 13:00:00 Outpatient [facility] Medicine [id number] [facility] 2019-07-27 09:30:00 2019-07-27 09:30:00 Outpatient [facility] Medicine [id number] [facility] 2019-06-15 15:53:00 2019-06-15 15:53:00 [facility]patient [facility] [address] [facility] [id number] [facility] 2019-06-07 10:14:00 2019-06-07 10:14:[address] [facility] [id number] [facility] 2019-05-03 10:40:00 2019-05-03 10:40:[address] [facility] [id number] [facility] 2019-04-24 09:53:00 2019-04-24 09:53:[address] [facility] [address] [facility] [id number] [facility] 2019-04-11 13:55:00 2019-04-11 13:55:[address] [facility] [id number] [facility] 2019-03-16 09:40:00 2019-03-16 09:40:[address] [facility] [id number] [facility] 2019-03-07 09:54:00 2019-03-07 09:54:[address] [facility] [facility] [id number] [facility] 2019-03-06 00:00:00 2019-03-06 00:00:00 Refill Danelle Padilla [place] [id number] [facility] 2019-02-22 00:00:00 2019-02-22 00:00:00 Telephone Danelle Padilla [facility] [id number] [id number] [id number] 220 [id number] [facility] 2019-02-16 00:00:00 2019-02-16 00:00:00 Refill Mirna Warren [place] [id number] [id number] [id number] 220 [id number] [facility] 2019-02-06 00:00:00 2019-02-06 00:00:00 Refill Mirna Warren [facility] [id number] 4.2.7.2.686 [id number] 220 [id number] [facility] 2019-02-06 00:00:00 2019-02-06 00:00:00 Refill Danelle Padilla [facility] [id number] 4.2.7.2.686 [id number] 220 [id number] [facility] 2019-01-31 16:23:00 2019-01-31 16:23:00 [facility] [id number] [facility] 2019-01-31 00:00:00 2019-01-31 00:00:00 Refill Danelle Padilla [facility] [id number] 4.2.7.2.686 [id number] 220 [id number] [facility] 2018-12-25 16:40:00 2018-12-25 16:40:00 [facility] [id number] [facility] 2018-09-05 13:30:00 2018-09-05 13:30:00 Outpatient JOSHUA EDMOND [facility] [id number] [facility] 2018-08-21 09:30:00 2018-08-21 09:30:00 [facility] [id number] [facility] 2018-07-27 10:22:00 2018-07-27 10:22:00 [facility] [id number] [facility] 2018-06-29 13:35:00 2018-06-29 13:35:00 Outpatient [facility] [id number] [facility] 2018-06-07 13:16:00 2018-06-07 13:16:00 Outpatient [facility] [id number] [facility] 2018-05-23 09:30:00 2018-05-23 09:30:00 Outpatient [facility] [id number] [facility] Results Test Description Test Time Test Comments Results Result Co mments Source [facility] Hemoglobin A1C [id number] 20:41:00* Test Item Value Reference Range Interpretation Comme nts POCT HBA1C (test code = 4548-4) 8.2 % 4-6 A Lab Interpretation (test cod e = 25206-2) Abnormal [facility] URINALYSIS W SPECIFIC [id number] 00:58:00* Test Item Value Reference Range Interpretation Comme nts POCT U SP GRAV (test code = 3255) 1.030 mg/dl 1.005-1.025 A POCT PH U (test code = 3254) 5 mg/dl 5-8 POCT U LEUK EST (test code = 3263) 2+ Negative - Negative POCT U NIT (test code = 3262) negative Negative - Negative POCT U PROT (test code = 3259) 30 Negative - Negative POCT U GLU (test code = 3256) 250 Negative - Negative POCT U KETONE (test code = 3258) neg Negative - Negative POCT U UROBILI (test code = 3260) 1 mg/dl 0.2-1 POCT U BILI (test code = 3261) neg Negative - Negative POCT U BLD (test code = 3257) 50 Negative - Negative POCT U COLOR (test code = 3266) yellow POCT U APPEAR (test code = 3267) clear LEEANN (test code = LEEANN) accurate developme nt and interpretation of all internal controls Lab Interpretation (test code = 36038-6) Abnormal [facility] with [id number] 04:30:28* Test Item Value Reference Range Interpretation Comme nts WBC (test code = 6690-2) 7.35 See_Comment [Automated messa ge] The system which generated this result transmitted reference range: 4.30 - 11.10 10*3/?L. The reference range was not used to interpret this result as normal/abnormal. RBC (test code = 789-8) 4.28 See_Comment [Automated Sparkbrowsera ge] The system which generated this result transmitted reference range: 3.93 - 5.25 10*6/?L. The reference range was not used to interpret this result as normal/abnormal. HGB (test code = 718-7) 12.9 g/dL 11.6-15.0 HCT (test code = 4544-3) 37.9 % 35.7-45.2 MCV (test code = 787-2) 88.6 fL 80.6-95.5 MCH (test code = 785-6) 30.1 pg 25.9-32.8 MCHC (test code = 786-4) 34.0 g/dL 31.6-35.1 RDW-SD (test code = 73944-4) 43.5 fL 39.0-49.9 RDW-CV (test code = 788-0) 13.4 % 12.0-15.5 PLT (test code = 777-3) 289 See_Comment [Automated Sparkbrowsera ge] The system which generated this result transmitted reference range: 166 - 358 10*3/?L. The reference range was not used to interpret this result as normal/abnormal. MPV (test code = 53559-3) 11.2 fL 9.5-12.9 NRBC/100 WBC (test code = 0699846370) 0.0 See_Comment [Automated me ssage] The system which generated this result transmitted reference range: 0.0 - 10.0 /100 WBCs. The reference range was not used to interpret this result as normal/abnormal. NRBC x10^3 (test code = 2769478370) See_Comment [Automated me ssage] The system which generated this result transmitted reference range: 10*3/?L. The reference range was not used to interpret this result as normal/abnormal. GRAN MAT (NEUT) % (test code = 770-8) 52.1 % IMM GRAN % (test code = 1621020089) 0.10 % LYMPH % (test code = 736-9) 38.0 % MONO % (test code = 5905-5) 7.1 % EOS % (test code = 713-8) 2.0 % BASO % (test code = 706-2) 0.7 % GRAN MAT x10^3(ANC) (test code = 6286958008) 3.83 10*3/uL 1.88-7.09 IMM GRAN x10^3 (test code = 8865197729) 0.00-0.06 LYMPH x10^3 (test code = 731-0) 2.79 10*3/uL 1.32-3.29 MONO x10^3 (test code = 742-7) 0.52 10*3/uL 0.33-0.92 EOS x10^3 (test code = 711-2) 0.15 10*3/uL 0.03-0.39 BASO x10^3 (test code = 704-7) 0.05 10*3/uL 0.01-0.07 [facility] Hemoglobin A1C [id number] 21:30:00* Test Item Value Reference Range Interpretation [facility] PO[facility] HBA[facility]C (test code = 4548-4) 8.0 % 4-6 A Lab Interpretation (test cod e = 52758-3) Abnormal [facility] Hemoglobin A1C [id number] 21:30:00* Test Item Value Reference Range Interpretation [facility] POCT HBA1C (test code = 4548-4) 8.0 % 4-6 A Lab Interpretation (test cod e = 60874-6) Abnormal [facility] Hemoglobin A1C [id number] 21:30:00* Test Item Value Reference Range Interpretation Comme nts POCT HBA1C (test code = 4548-4) 8.0 % 4-6 A Lab Interpretation (test cod e = 51302-7) Abnormal [facility] HEMOGLOBIN A1C [id number] 20:33:00* Test Item Value Reference Range Interpretation Comme nts POCT HBA1C (test code = 4548-4) 8.0 % 4-6 A Lab Interpretation (test cod e = 63532-6) Abnormal [facility] HEMOGLOBIN A1C [id number] 20:33:00* Test Item Value Reference Range [facility]ation [facility] POCT HBA1C (test code = 4548-4) 8.0 % 4-6 A Lab Interpretation (test cod e = 55099-6) Abnormal [facility] HEMOGLOBIN A1C [id number] 20:33:00* Test Item Value Reference Range Interpretation [facility] POCT HBA1C (test code = 4548-4) 8.0 % 4-6 A Lab Interpretation (test cod e = 77732-5) [facility]TOTAL CHOLESTEROL, TRIGLYCERIDES, HDL)2022-12-04 15:53:49* Test Item Value Reference Range Interpretation Comme nts CHOL (test code = 9779970275) 174 mg/dL 120-200 HDL (test code = 4432617167) 53 mg/dL >=50 HDLC RATIO (test code = 2745096865) 3.3 <=4.5 TRIG (test code = 9852015532) 131 mg/dL 30-170 LDL CHOL (test code = 17603-2) 95 mg/dL <=160 VLDL (test code = 1114397400) 26 mg/dL 5-60 Lab Interpretation (test cod e = 99065-9) [facility] (52456)2022-12-04 15:53:29* Test Item Value Reference Range Interpretation Comme nts NA (test code = 8040603197) 139 mmol/L 135-145 K (test code = 6989989216) 4.5 mmol/L 3.5-5.0 CL (test code = 6072246414) 104 mmol/L 98-108 CO2 TOTAL (test code = 0990478410) 27 mmol/L 23-31 AGAP (test code = 5546964952) 8 2-16 BUN (test code = 1973188090) 20 mg/dL 7-23 GLUCOSE (test code = 1775146645) 139 mg/dL 70-110 H CREATININE (test code = 3630859393) 0.58 mg/dL 0.50-1.04 TOTAL BILI (test code = 8413547245) 0.6 mg/dL 0.1-1.1 CALCIUM (test code = 1937967099) 10.6 mg/dL 8.6-10.6 T PROTEIN (test code = 4465516219) 7.4 g/dL 6.3-8.2 ALBUMIN (test code = 7178547374) 4.0 g/dL 3.5-5.0 ALK PHOS (test code = 3142813190) 114 U/L 34-122 ALTv (test code = 1742-6) 16 U/L 5-35 AST(SGOT) (test code = 3065954638) 22 U/L 13-40 eGFR (test code = 7761933638) 100.3 mL/min/1.73m2 LEEANN (test code = LEEANN) Association of Glomerular Filtration Rate (GFR) and Staging of Kidney Disease* + --+ --+ ------+| GFR (mL/min/1.73 m2) ?| With Kidney Damage ?| ?Without Kidney Damage+ --------+ --------+ +| ?>90 ?| ?Stage one ?| ? Normal ?+ ---+ ---+ -------+| ?60-89 ?| ?Stage two ?| ? Decreased GFR ? + --+ --+ ------+| ?30-59 ?| ?Stage three ?| ? Stage three ? + --+ --+ ------+| ?15-29 ?| ?Stage four ? | ? Stage four ?+ ---+ ---+ -------+| ?<15 (or dialysis) ? ?| ?Stage five ? | ? Stage five ?+ ---+ ---+ -------+ *Each stage assumes the associated GFR level has been in effect for at least three months. ?Stages 1 to 5, with or without kidney disease, indicate chronic kidney disease. Notes: Determination of stages one and two (with eGFR >59mL/min/1.73 m2) requires estimation of kidney damage for at least three months as defined by structural or functional abnormalities of the kidney, manifested by either:Pathological abnormalities or Markers of kidney damage (including abnormalities in the composition of the blood or urine or abnormalities in imaging tests). Lab Interpretation (test code = 96621-9) Abnormal [facility] WITH [id number] 15:27:08* Test Item Value Reference Range Interpretation Comme nts WBC (test code = 6690-2) 7.51 See_Comment [Automated messa ge] The system which generated this result transmitted reference range: 4.30 - 11.10 10*3/?L. The reference range was not used to interpret this result as normal/abnormal. RBC (test code = 789-8) 3.95 See_Comment [Automated messa ge] The system which generated this result transmitted reference range: 3.93 - 5.25 10*6/?L. The reference range was not used to interpret this result as normal/abnormal. HGB (test code = 718-7) 12.0 g/dL 11.6-15.0 HCT (test code = 4544-3) 34.8 % 35.7-45.2 L MCV (test code = 787-2) 88.1 fL 80.6-95.5 MCH (test code = 785-6) 30.4 pg 25.9-32.8 MCHC (test code = 786-4) 34.5 g/dL 31.6-35.1 RDW-SD (test code = 42306-4) 42.4 fL 39.0-49.9 RDW-CV (test code = 788-0) 13.2 % 12.0-15.5 PLT (test code = 777-3) 291 See_Comment [Automated messa ge] The system which generated this result transmitted reference range: 166 - 358 10*3/?L. The reference range was not used to interpret this result as normal/abnormal. MPV (test code = 18923-9) 9.9 fL 9.5-12.9 NRBC/100 WBC (test code = 2005940697) 0.0 See_Comment [Automated Gluc[employer]Vista ssage] The system which generated this result transmitted reference range: 0.0 - 10.0 /100 WBCs. The reference range was not used to interpret this result as normal/abnormal. NRBC x10^3 (test code = 0979228702) See_Comment [Automated messa ge] The system which generated this result transmitted reference range: 10*3/?L. The reference range was not used to interpret this result as normal/abnormal. GRAN MAT (NEUT) % (test code = 770-8) 51.8 % IMM GRAN % (test code = 6322351468) 0.30 % LYMPH % (test code = 736-9) 37.8 % MONO % (test code = 5905-5) 6.9 % EOS % (test code = 713-8) 2.5 % BASO % (test code = 706-2) 0.7 % GRAN MAT x10^3(ANC) (test code = 2921146088) 3.89 10*3/uL 1.88-7.09 IMM GRAN x10^3 (test code = 9315801433) 0.00-0.06 LYMPH x10^3 (test code = 731-0) 2.84 10*3/uL 1.32-3.29 MONO x10^3 (test code = 742-7) 0.52 10*3/uL 0.33-0.92 EOS x10^3 (test code = 711-2) 0.19 10*3/uL 0.03-0.39 BASO x10^3 (test code = 704-7) 0.05 10*3/uL 0.01-0.07 Lab Interpretation (test code = 07271-7) Abnormal [facility] HEMOGLOBIN A1C [id number] 19:00:00* Test Item Value Reference Range Interpretation [facility] PO[facility] HBA1C (test code = 4548-4) 7.4 % 4-6 A Lab Interpretation (test cod e = 79706-6) Abnormal [facility] HEMOGLOBIN A1C [id number] 19:00:00* Test Item Value Reference Range Interpretation [facility] POCT HBA1C (test code = 4548-4) 7.4 % 4-6 A Lab Interpretation (test cod e = 93848-1) Abnormal [facility] METABOLIC PANEL (NA, K, CL, CO2, GLUCOSE, BUN, CREATININE, CA)2022-05-17 20:56:59* Test Item Value Reference Range Interpretation [facility] NA (test code = 1218442245) 133 mmol/L 135-145 L K (test code = 6760474422) 3.9 mmol/L 3.5-5.0 CL (test code = 2643399284) 99 mmol/L 98-108 CO2 TOTAL (test code = 1599802881) 18 mmol/L 23-31 L AGAP (test code = 3882234500) 2-16 BUN (test code = 2982007339) 11 mg/dL 7-23 GLUCOSE (test code = 9007136450) 350 mg/dL 70-110 H CREATININE (test code = 5818279790) 0.57 mg/dL 0.50-1.04 CALCIUM (test code = 2564216996) 9.7 mg/dL 8.6-10.6 eGFR (test code = 9660815635) mL/min/1.73m2 LEEANN (test code = LEEANN) Association of Glomerular Filtration Rate (GFR) and Staging of Kidney Disease* + --+ --+ ------+| GFR (mL/min/1.73 m2) ?| With Kidney Damage ?| ?Without Kidney Damage+ --------+ --------+ +| ?>90 ?| ?Stage one ?| ? Normal ?+ ---+ ---+ -------+| ?60-89 ?| ?Stage two ?| ? Decreased GFR ? + --+ --+ ------+| ?30-59 ?| ?Stage three ?| ? Stage three ? + --+ --+ ------+| ?15-29 ?| ?Stage four ? | ? Stage four ?+ ---+ ---+ -------+| ?<15 (or dialysis) ? ?| ?Stage five ? | ? Stage five ?+ ---+ ---+ -------+ *Each stage assumes the associated GFR level has been in effect for at least three months. ?Stages 1 to 5, with or without kidney disease, indicate chronic kidney disease. Notes: Determination of stages one and two (with eGFR >59mL/min/1.73 m2) requires estimation of kidney damage for at least three months as defined by structural or functional abnormalities of the kidney, manifested by either:Pathological abnormalities or Markers of kidney damage (including abnormalities in the composition of the blood or urine or abnormalities in imaging tests). Lab Interpretation (test code = 80753-3) Abnormal [facility] WITH [id number] 20:48:58* Test Item Value Reference Range Interpretation Comme nts WBC (test code = 6690-2) See_Comment H [Automated message] The system which generated this result transmitted reference range: 4.30 - 11.10 10*3/?L. The reference range was not used to interpret this result as normal/abnormal. RBC (test code = 789-8) See_Comment [Automated message] The system which generated this result transmitted reference range: 3.93 - 5.25 10*6/?L. The reference range was not used to interpret this result as normal/abnormal. HGB (test code = 718-7) 12.1 g/dL 11.6-15.0 HCT (test code = 4544-3) 33.5 % 35.7-45.2 L MCV (test code = 787-2) 82.1 fL 80.6-95.5 MCH (test code = 785-6) 29.7 pg 25.9-32.8 MCHC (test code = 786-4) 36.1 g/dL 31.6-35.1 H RDW-SD (test code = 14793-0) 37.7 fL 39.0-49.9 L RDW-CV (test code = 788-0) 12.5 % 12.0-15.5 PLT (test code = 777-3) See_Comment H [Automated message] The system which generated this result transmitted reference range: 166 - 358 10*3/?L. The reference range was not used to interpret this result as normal/abnormal. MPV (test code = 38462-1) 9.6 fL 9.5-12.9 NRBC/100 WBC (test code = 7478042990) See_Comment [Automated message] The system which generated this result transmitted reference range: 0.0 - 10.0 /100 WBCs. The reference range was not used to interpret this result as normal/abnormal. NRBC x10^3 (test code = 4214757716) See_Comment [Automated message] The system which generated this result transmitted reference range: 10*3/?L. The reference range was not used to interpret this result as normal/abnormal. GRAN MAT (NEUT) % (test code = 770-8) 83.0 % IMM GRAN % (test code = 4832550048) 1.00 % LYMPH % (test code = 736-9) 10.1 % MONO % (test code = 5905-5) 5.3 % EOS % (test code = 713-8) 0.2 % BASO % (test code = 706-2) 0.4 % GRAN MAT x10^3(ANC) (test code = 9446491864) 10.70 10*3/uL 1.88-7.09 H IMM GRAN x10^3 (test code = 4239896138) 0.13 10*3/uL 0.00-0.06 H LYMPH x10^3 (test code = 731-0) 1.30 10*3/uL 1.32-3.29 L MONO x10^3 (test code = 742-7) 0.68 10*3/uL 0.33-0.92 EOS x10^3 (test code = 711-2) 0.03 10*3/uL 0.03-0.39 BASO x10^3 (test code = 704-7) 0.05 10*3/uL 0.01-0.07 Lab Interpretation (test code = 78882-3) Abnormal [facility] HEMOGLOBIN A1C [id number] 14:57:00* Test Item Value Reference Range Interpretation Comme nts POCT HBA1C (test code = 4548-4) 7.5 % 4-6 A Lab Interpretation (test cod e = 38166-2) Abnormal [facility] HEMOGLOBIN A1C [id number] 14:57:00* Test Item Value Reference Range [facility]ation [facility] PO[facility] HBA1C (test code = 4548-4) 7.5 % 4-6 A Lab Interpretation (test cod e = 51526-7) Abnormal [facility] HEMOGLOBIN A1C [id number] 19:29:00* Test Item Value Reference Range Interpretation [facility] POCT HBA1C (test code = 4548-4) 8.4 % 4-6 A Lab Interpretation (test cod e = 86338-9) Abnormal [facility] Notes Date/Time Note Provider Source 2025-01-29 12:17:20 Images from the original note were not included. Notes: Last Refilled: meclizine 12.5 mg tablet Possible duplicate: Hover to review recent actions on this medication Sig: Take 1 tablet by mouth every 12 hours as needed for Dizziness or Nausea. Disp: 30 tablet Refills: 0 Start: 01/27/2025 Class: eRX For: Vertigo Last ordered: 2 weeks ago (01/11/2025) by Rasheeda Mead MD Patient comment: Taking daily twice a day. Can qty be increased? #60 ? Anti-nausea Eklbkk8201/27/2025 01:00 PM Protocol Details This refill cannot be delegated Manual Review: [facility] providers only allowed to refill requests. Valid encounter within last 12 months To be filled at: [id number] [address] [place] [address] AT [facility] This message is being sent by Angel Sanchez on behalf of Karina Osman Recent Visits Date Type Provider Dept 11/12/24 Office Visit Rasheeda Mead MD [facility] 08/24/24 Office Visit Rasheeda Mead MD [facility] 05/14/24 Office Visit Rasheeda Mead MD [facility] 11/04/23 Office Visit Allyn Franklin MD [facility] Showing recent visits within past 540 days with a meds authorizing provider and meeting all other requirements Future Appointments Date Type Provider Dept 02/04/25 Appointment Rasheeda Mead MD [facility] 03/04/25 Appointment Rasheeda Mead MD [facility] Showing future appointments within next 150 days with a meds authorizing provider and meeting all other requirements T [facility]bookpie 2025-01-16 10:46:25 RX clarification sent [facility]book[employer] 2025-01-16 09:56:19 Karina Osman is a 79 year old female [facility] to get diagnosis codes or the Lancing Device with Lancets Kit. Please all back and advise, thank you! [id number] [place], [place] - [address] AT [facility] [address] [address] Janneth Patino [facility] 2025-01-11 11:25:53 Recent Visits Date Type Provider Dept 11/12/24 Office Visit Rasheeda Mead MD [facility] 08/24/24 Office Visit Rasheeda Mead MD [facility] 05/14/24 Office Visit Rasheeda Mead MD [facility] 11/04/23 Office Visit Allyn Franklin MD [facility] Showing recent visits within past 540 days with a meds authorizing provider and meeting all other requirements Future Appointments Date Type Provider Dept 03/04/25 Appointment Rasheeda Mead MD [facility] Showing future appointments within next 150 days with a meds authorizing provider and meeting all other requirements Last refill was Disp Refills Start End HERMINIO MECLIZINE 12.5 mg tablet 30 tablet 0 04/10/2024 -- No Sig: TOME EDISON TABLETA POR VIA ORAL MICHAEL VECES AL SHEEBA CUANDO SEA NECESARIO FOR DIZZINESS Elisha Rodríguez MA [facility] 2025-01-07 13:44:27 Notes: BD AURA 2ND GEN PEN NEEDLE 32 gauge x 32" Ndle USE EMMANUEL LO INDICADO Last Refilled: 04/10/24 Recent Visits Date Type Provider Dept 11/12/24 Office Visit Rasheeda Mead MD [facility] 08/24/24 Office Visit Rasheeda Mead MD [facility] 05/14/24 Office Visit Rasheeda Mead MD [facility] 11/04/23 Office Visit Allyn Franklin MD [facility] Showing recent visits within past 540 days with a meds authorizing provider and meeting all other requirements Future Appointments Date Type Provider Dept 03/04/25 Appointment Rasheeda Mead MD [facility] Showing future appointments within next 150 days with a meds authorizing provider and meeting all other requirements Karina Sierra MA [facility] 2024-12-17 15:38:17 CLINICAL PHARMACY VISIT - ENDOCRINOLOGY DATE: 12/17/24 SUBJECTIVE: Karina Osman is a 79 year old y/o female referred to PharmD clinic by Anastasia Mann MD for initial visit for medication management of diabetes. Patient identity verified by name and . At last endo visit, patient was instructed to: Switch Ozempic to Mounjaro 7.5 mg weekly Continue metformin 1000 mg daily Continue Basaglar 66 units daily At today's clinical pharmacy visit, Spoke with patient's daughter Andreina Sanchez. Daughter states patient is not compliant to medications. States she is still taking Ozempic due to excess supply and pharmacy stated it is too soon to fill Mounjaro. Patient reports daily medication adherence w/o any notable side effects. Patient denies s/sx of hypoglycemia. Daughter states Patient can be reached at this number ([phone]) but PharmD attempted to contact patient and there was no answer/unable to leave VM. Other daughter: Karina ([phone]) -SOCIAL HISTORY- Tobacco: None Alcohol: None Exercise: Walks daily Additional socioeconomic considerations: Has 2 daughters that assist with care -DIET- Breakfast: egg, tortillas Lunch: gorditas, other Prydeinig food Dinner: skips 1. DIABETES Patient reports >20 year duration of Type 2 diabetes. Complications of diabetes: Hyperglycemia: [-] Polyuria, [-] Polydipsia, [-] Polyphagia [-] Visual changes Macrovascular: [-] WV [-] CABG/PCI/other re-vascularization procedure [-] CAD Microvascular: [-] Retinopathy (last eye exam 07/2024) [+] Nephropathy [+] Neuropathy (last foot exam due) Symptoms of hypoglycemia: [-] Dizziness [-] Fatigue [-] Sweating [-] Nervousness [-] Tachycardia [-] Dizziness Patient reports symptoms of hypoglycemia when BS mg/dL. Currently treats with . Current DM medication regimen: Ozempic 2 mg weekly Metformin 1000 mg daily Basaglar 66 units daily Previous treatment attempts/failures/adverse reactions: Victoza-lack of efficacy SGLT2-hx of frequent UTI/DKA SMBG readings: Unable to assess OBJECTIVE: Past Medical History: Diagnosis Date Diabetes Dyslipidemia HTN (hypertension) No Known Allergies Medications Current Outpatient Medications: tirzepatide (MOUNJARO) 7.5 mg/0.5 mL subcutaneous injection pen, inject 7.5 mg under the skin weekly., Disp: 2 mL, Rfl: 3 lancets ([employer] DELICA PLUS LANCET) 33 gauge Misc, Use 3 times daily. Dx e11.9, Disp: 300 Each, Rfl: 0 ONETOUCH VERIO TEST STRIPS strip, USE EMMANUEL LO INDICADO DOS VECES AL SHEEBA E11.65, Disp: 200 Strip, Rfl: 1 BASAGLAR KWIKPEN U-100 INSULIN 100 unit/mL (3 mL) injection, INJECTE 66 UNITS POR VIA SUBCUTANEA TODOS LOS CARMONA, Disp: 90 Each, Rfl: 2 BUSPIRONE 5 mg tablet, TOME 1 TABLETA POR VIA ORAL DOS VECES AL SHEEBA CUANDO SEA NECESARIO PARA LA ANSIEDAD, Disp: 180 tablet, Rfl: 1 metFORMIN 1,000 mg tablet, Take 1 tablet by mouth daily with breakfast., Disp: , Rfl: BD AURA 2ND GEN PEN NEEDLE 32 gauge x 5/32" Ndle, USE EMMANUEL LO INDICADO, Disp: 100 Each, Rfl: 0 MECLIZINE 12.5 mg tablet, TOME EDISON TABLETA POR VIA ORAL MICHAEL VECES AL SHEEBA CUANDO SEA NECESARIO FOR DIZZINESS, Disp: 30 tablet, Rfl: 0 BUPROPION 75 mg tablet, TOME EDISON TABLETA DOS VECES AL SHEEBA, Disp: 180 tablet, Rfl: 1 atorvastatin 10 mg tablet, Every other evening, Disp: , Rfl: omeprazole 20 mg capsule, Take 1 capsule by mouth daily., Disp: 90 capsule, Rfl: 3 LOSARTAN 100 mg tablet, TOME EDISON TABLETA TODOS LOS CARMONA, Disp: 90 tablet, Rfl: 1 ONETOUCH VERIO FLEX METER [facility], Please check two times a day. E11.65, Disp: 1 Each, Rfl: 0 DULoxetine 60 mg capsule, RAMSESAditya Zhang FOR 90 DAYS, Disp: , Rfl: magnesium oxide 400 mg (241.3 mg magnesium) tablet, Take 1 tablet by mouth daily., Disp: , Rfl: Lancets [facility], Use as directed TID DX: E11.9, Disp: 300 Each, Rfl: 1 Drug-Drug Interactions: There are no significant drug-drug interactions Immunization History Administered Date(s) Administered Influenza Virus Vaccine Recomb Quad IM, Preserv and ABX Free 18-64 YRS 04/09/2020 Influenza Virus Vaccine,quad Im,preserve Free 65+ (FLUAD) 05/09/2023 Influenza, adjuvanted, trivalent, PF (FLUAD) 05/14/2024 Pneumococcal 20 Conjugate, PCV20 (Prevnar 20) 04/12/2023 SARS-COV-2 COVID-19 MODERNA 12+ YRS VACCINE 07/02/2020, 07/30/2020 SARS-COV-2 COVID-19 PFIZER VACCINE 05/09/2023 TDAP 04/12/2023 Zoster(Zostavax)(Shingles) 04/12/2023 Vaccine history was reviewed. The patient will be reminded about the importance of receiving an annual influenza vaccine as indicated. Relevant Labs HGB A1C Date Value Ref Range Status 05/18/2024 7.4 (H) 4.0 - 5.7 % Final 11/04/2023 7.7 (H) 4.0 - 5.7 % Final POCT HBA1C Date Value Ref Range Status 11/12/2024 11.3 (A) 4 - 5.6 % Final 05/14/2024 8.2 (A) 4 - 6 % Final eGFR NON-AFR. TURKISH-Q Date Value Ref Range Status 01/30/2020 76 > OR = 60 mL/min/1.73m2 Final eGFR Date Value Ref Range Status 05/18/2024 73.5 mL/min/1.73m2 Final Comment: CKD-EPI eGFR (2020). Assuming creatinine has been stable day-to-day for at least three months, the eGFR indicates Category G2 (60 - 89 mL/min/1.73 m2) CREATININE Date Value Ref Range Status 05/18/2024 0.81 0.50 - 1.04 mg/dL Final 11/04/2023 1.03 0.50 - 1.04 mg/dL Final CREATININE-Q Date Value Ref Range Status 01/30/2020 0.76 0.60 - 0.93 mg/dL Final Comment: For patients >49 years of age, the reference limit for Creatinine is approximately 13% higher for people identified as -[place] African. LDL CHOL Date Value Ref Range Status 05/18/2024 79 <=160 mg/dL Final 12/04/2022 95 <=160 mg/dL Final [id number] Date Value Ref Range Status 01/30/2020 84 mg/dL (calc) Final Comment: Reference range: <100 Desirable range <100 mg/dL for primary prevention; <70 mg/dL for patients with CHD or diabetic patients with > or = 2 CHD risk factors. LDL-C is now calculated using the Reji calculation, which is a validated novel method providing better accuracy than the Friedewald equation in the estimation of LDL-C. Gary VILLEGAS et al. LEONARDO. 2013;310(19): 2705-0956 (http://education.MediWound.Sentrinsic/faq/ZAR791) TRIG Date Value Ref Range Status 05/18/2024 97 30 - 170 mg/dL Final 12/04/2022 131 30 - 170 mg/dL Final TRIGLYCERIDES-Q Date Value Ref Range Status 01/30/2020 136 <150 mg/dL Final TSH Date Value Ref Range Status 05/18/2024 1.61 0.45 - 4.70 mIU/L Final Comment: Biotin has been reported to cause a negative bias, interpret results relative to patient's use of biotin. 06/10/2023 2.38 0.45 - 4.70 mIU/L Final TSH, 3RD GENERATION-Q Date Value Ref Range Status 01/30/2020 1.28 0.40 - 4.50 mIU/L Final Comment: REPORT COMMENT: FASTING:YES MICROAL/CR Date Value Ref Range Status 05/18/2024 33 (H) 0 - 30 mg/g of creatinine Final 12/04/2022 56 (H) 0 - 30 mg/g of creatinine Final ASSESSMENT: 1. Diabetes Patient NOT controlled to goal A1c of <8% per ADA guidelines -- most recent A1c = 11.3% on 10/2024. Unable to assess PLAN/RECOMMENDATIONS: Patient instructed to: (reiterated instructions from last visit) Switch Ozempic to Mounjaro 7.5 mg weekly Continue metformin 1000 mg daily Continue Basaglar 66 units daily Follow-up with PharmLeatha in 4 weeks Patient provided with PharmD's direct callback number to call as needed Time spent with patient/coordination: 30 minutes Ben Lund PharmD Pharmacy Clinical Store Detective - Family Medicine Future Appointments Provider Department Dept Phone 03/04/2025 1:40 PM Rasheeda Mead MD [facility] Primary Care, [facility] [phone] 03/04/2025 2:30 PM Anastasia Mann MD [facility] Endocrinology, [facility] [phone] Ashley Lund Eileen [facility] 2024-12-12 10:59:13 PharmD Attempted to contact patient for DM/medication management. Unable to reach patient. [X] Left VM with contact information [ ] Unable to leave VM/VM box full This is the second attempt. Ben Lund PharmD Pharmacy Clinical Store Detective [facility] Ashley Lund Eileen [facility] 2024-12-10 10:33:51 PharmD Attempted to contact patient for DM/medication management. Unable to reach patient. [X] Left VM with contact information [ ] Unable to leave VM/VM box full This is the first attempt. eBn Lund PharmD Pharmacy Clinical Store Detective - Family Medicine [facility] 2024-10-25 09:53:37 Refill: onetouch delica lancets KATHIE: 05/14/2024 NOV: 11/12/2024 Refill sent Mely Ocampo RN [facility] 2024-10-24 16:00:02 Refill Onetouch verio test strips KATHIE: 05/14/2024 NOV: 11/12/2024 Refill sent Mely Ocampo RN [facility] 2024-10-24 10:29:52 Images from the original note were not included. Last Refilled: Name from pharmacy: OZEMPIC 8 MG/3 ML (2 MG/DOSE) Will file in chart as: OZEMPIC 2 mg/dose (8 mg/3 mL) PnIj Sig: inject 2 mg under the skin weekly for 90 days. Disp: Not specified (Pharmacy requested: 3 Each) Refills: 2 Start: 10/24/2024 Class: eRX Non-formulary For: Type 2 diabetes mellitus without complication, unspecified whether machine sorter insulin use Last ordered: 3 months ago (07/20/2024) by Rasheeda Mead MD Last refill: 09/21/2024 Rx #: [id number] GLP-1 Receptor Agonists Fbdkqf0710/24/2024 12:20 AM Protocol Details Manual Review: Review last provider note for dose changes HBA1C in normal range and within 180 days Valid encounter within last 6 months To be filled at: [facility]/pharmacy #[id number] - [place], [place] - [address] AT [facility] Recent Visits Date Type Provider Dept 08/24/24 Office Visit Rasheeda Mead MD [facility] 05/14/24 Office Visit Rasheeda Mead MD [facility] 11/04/23 Office Visit Allyn Franklin MD [facility] 06/10/23 Office Visit Allyn Franklin MD [facility] Showing recent visits within past 540 days with a meds authorizing provider and meeting all other requirements Future Appointments Date Type Provider Dept 11/12/24 Appointment Rasheeda Mead MD [facility] Showing future appointments within next 150 days with a meds authorizing provider and meeting all other requirements [facility] 2024-10-23 12:06:14 PA for Basaglar U-100 Kwikpen initiated on 10/23/2024 (Sharma: [id number]) PA Outcome Approved today by [employer] 2017 Approved. This drug has been approved under the Member's Medicare Part D benefit. Approved quantity: 9 units per 30 day(s). You may fill up to a 90 day supply except for those on Specialty Tier 5, which can be filled up to a 30 day supply. Please call the pharmacy to process the prescription claim. Effective Date: 10/09/2024 Authorization Expiration Date: 06/26/2099 Amanda Day LVN [facility] 2024-10-12 10:35:06 [facility] pharmacy calling to see if Dr is going to change medication since its not covered by insurance Rob Grajeda [facility] 2024-10-10 19:35:39 Please review and sign if appropriate: Pharmacy comment: Alternative Requested:THE PRESCRIBED MEDICATION IS NOT COVERED BY INSURANCE. PLEASE CONSIDER CHANGING TO ONE OF THE SUGGESTED COVERED ALTERNATIVES. Last office visit: 08/24/24 Next office visit: 11/12/24 Requested Prescriptions Pending Prescriptions Disp Refills BASAGLAR KWIKPEN U-100 INSULIN 100 unit/mL (3 mL) injection [Pharmacy Med Name: BASAGLAR 100 UNIT/ML KWIKPEN] 90 Each 2 Sig: INJECTE 66 UNITS POR VIA SUBCUTANEA TODOS LOS CARMONA Last refill date: 10/10/24 Labs: HGB A1C (%) Date Value 05/18/2024 7.4 (H) CREATININE (mg/dL) Date Value 05/18/2024 0.81 CREATININE-Q (mg/dL) Date Value 01/30/2020 0.76 Notes: The encounter diagnosis was Type 2 diabetes mellitus without complication, unspecified whether residential insulin use. Amanda Day LVN [facility] 2024-10-10 16:20:49 Madelaine with [facility] is calling stating the prescription Insulin Glargine (BASAGLAR KWIKPEN U-100 INSULIN) 100 unit/mL (3 mL) injection is not covered by insurance and is request a medication change. [id number] - [address] [address] Pati Jones [facility] 2024-10-10 15:47:59 Pharmacy comment: Alternative Requested:THE PRESCRIBED MEDICATION IS NOT COVERED BY INSURANCE. PLEASE CONSIDER CHANGING TO ALTERNATIVES. Elisha Rodríguez MA [facility] 2024-10-10 09:04:32 Notes: Please review and advise, TY Last Refilled: Disp Refills Start End HERMINIO Insulin Glargine (BASAGLAR KWIKPEN U-100 INSULIN) 100 unit/mL (3 mL) injection 45 Each 0 04/10/2024 -- No Sig: INYECTE 66 UNITS POR VIA SUBCUTANEA TODOS LOS CARMONA Sent to pharmacy as: Basaglar KwikPen U-100 Insulin 100 unit/mL (3 mL) subcutaneous (Insulin Glargine) Class: eRX Order: [id number] Date/Time Signed: 04/10/2024 12:56 E-Prescribing Status: Receipt confirmed by pharmacy (04/10/2024 12:56 PM CDT) Recent Visits Date Type Provider Dept 08/24/24 Office Visit Rasheeda Mead MD [facility] 05/14/24 Office Visit Rasheeda Mead MD [facility] 11/04/23 Office Visit Allyn Franklin MD [facility] 06/10/23 Office Visit Allyn Franklin MD [facility] Showing recent visits within past 540 days with a meds authorizing provider and meeting all other requirements Future Appointments Date Type Provider Dept 11/12/24 Appointment Rasheeda Mead MD [facility] Showing future appointments within next 150 days with a meds authorizing provider and meeting all other requirements Clotilde Cho [facility] 2024-09-21 10:49:08 Images from the original note were not included. Last Refilled: Disp Refills Start End HERMINIO busPIRone 5 mg tablet 60 tablet 0 08/24/2024 -- No Sig: Take 1 tablet by mouth 2 (two) times daily as needed for Other (anxiety). Sent to pharmacy as: busPIRone 5 mg tablet (BUSPAR) Class: eRX Route: Oral Order: [id number] Date/Time Signed: 08/24/2024 14:22 E-Prescribing Status: Receipt confirmed by pharmacy (08/24/2024 2:22 PM OCCUPATIONAL NURSE) Notes: Pharmacy comment: REQUEST FOR 90 DAYS PRESCRIPTION. DX Code Needed. Provider Review Required Ncwykb1509/21/2024 10:31 AM Protocol Details This refill cannot be delegated Valid encounter within last 12 months Recent Visits Date Type Provider Dept 08/24/24 Office Visit Rasheeda Mead MD [facility] 05/14/24 Office Visit Rasheeda Mead MD [facility] 11/04/23 Office Visit Allyn Franklin MD [facility] 06/10/23 Office Visit Allyn Franklin MD [facility] Showing recent visits within past 540 days with a meds authorizing provider and meeting all other requirements Future Appointments Date Type Provider Dept 11/12/24 Appointment Rasheeda Mead MD [facility] Showing future appointments within next 150 days with a meds authorizing provider and meeting all other requirements Svitlana Zafar RN [facility] 2024-07-20 16:29:57 Recent Visits Date Type Provider Dept 05/14/24 Office Visit Rasheeda Mead MD [facility] 11/04/23 Office Visit Allyn Franklin MD [facility] 06/10/23 Office Visit Allyn Franklin MD [facility] 02/18/23 Office Visit Allyn Franklin MD [facility] Showing recent visits within past 540 days with a meds authorizing provider and meeting all other requirements Future Appointments Date Type Provider Dept 08/14/24 Appointment Rasheeda Mead MD [facility] Showing future appointments within next 150 days with a meds authorizing provider and meeting all other requirements Last refill was Disp Refills Start End HERMINIO semaglutide (OZEMPIC) 2 mg/dose (8 mg/3 mL) PnIj 1 Pen 5 11/04/2023 PATIONAL NURSE Elisha Rodríguez MA [facility] 2024-05-18 10:00:00 Images from the original note were not included. Venipuncture collection performed by clean technique on the right anticubitus. Total of 1 attempts were made. Slight pressure and a bandage/dressing were applied to the site(s). The patient experienced no complications. The following specimens were processed according to instructions and sent to [facility] laboratories per lab order on 05/18/2024 : LT BLUE SST 2 RED LAV 2 PPT DK GREEN (LiHep) DK GREEN (SodH) CROWELL DK BLUE (K2) DK BLUE (S) ACD Blood Culture NIPT/NTD Patient has been identified by and name and was provided with cup, antiseptic towelette, and clean catch instructions. 1 urine specimen(s) sent. Unpreserved 1 Urine Culture Aptima tube Other urine [facility] 2024-04-18 15:04:28 Spoke with the patient's daughter to assist with a follow up apt for med refills but she stated they are going to follow up with PCP. Kusum Hastings [facility] 2024-04-18 14:03:33 MUST BE SEEN FOR FURTHER REFILLS Routed to PSS for appt Elle Ellis RN [facility] 2024-04-10 12:48:43 Images from the original note were not included. Requested Renewals Name from pharmacy: BASAGLAR 100 UNIT/ML KWIKPEN Will file in chart as: BASAGLAR KWIKPEN U-100 INSULIN 100 unit/mL (3 mL) injection Sig: INYECTE 66 UNITS POR VIA SUBCUTANEA TODOS LOS CARMONA Disp: 45 Each Refills: Not specified Start: 04/10/2024 Class: eRX Non-formulary Last ordered: 1 month ago (03/05/2024) by Allyn Franklin MD Last refill: 03/06/2024 Rx #: [id number] Endocrinology: Diabetes - Insulins Oxcyya1804/10/2024 10:33 AM Protocol Details Manual review: Staff refilling for [facility], Cr lab not required to refill Valid encounter within last 12 months HBA1C within 180 days Cr in normal range and within 360 days Name from pharmacy: BD AURA 2 GEN PEN NDL 32G 4MM Will file in chart as: BD AURA 2ND GEN PEN NEEDLE 32 gauge x 5/32" Ndle Sig: USE EMMANUEL LO INDICADO Disp: 100 Each Refills: 0 (Pharmacy requested: Not specified) Start: 04/10/2024 Class: eRX Non-formulary For: Type 2 diabetes mellitus without complication, unspecified whether machine sorter insulin use To pharmacy: DX Code Needed . Last ordered: 4 weeks ago (03/12/2024) by Allyn Franklin MD Last refill: 03/12/2024 Rx #: [id number] Name from pharmacy: MECLIZINE 12.5 MG TABLET Will file in chart as: MECLIZINE 12.5 mg tablet Sig: TOME EDISON TABLETA POR VIA ORAL MICHAEL VECES AL SHEEBA CUANDO SEA NECESARIO FOR DIZZINESS Disp: 30 tablet Refills: 0 (Pharmacy requested: Not specified) Start: 04/10/2024 Class: eRX For: Vertigo To pharmacy: DX Code Needed . Last ordered: 2 months ago (01/16/2024) by Allyn Franklin MD Last refill: 01/16/2024 Rx #: [id number] Anti-nausea Pezgnw2804/10/2024 10:33 AM Protocol Details This refill cannot be delegated Manual Review: Women's Health providers only allowed to refill requests. Valid encounter within last 12 months [id number] [address] [place] [address] Recent Visits Date Type Provider Dept 11/04/23 Office Visit Alyln Franklin MD [facility] 06/10/23 Office Visit Allyn Franklin MD [facility] 02/18/23 Office Visit Allyn Franklin MD [facility] 12/03/22 Office Visit Allyn Franklin MD [facility] Showing recent visits within past 540 days with a meds authorizing provider and meeting all other requirements Future Appointments No visits were found meeting these conditions. Showing future appointments within next 150 days with a meds authorizing provider and meeting all other requirements Becky Matthews LVN [facility] 2024-03-12 07:42:50 Last Refilled: Disp Refills Start End HERMINIO Insulin Seanor, Disposable, (AURA PEN NEEDLE) 32 gauge x 5/32" Ndle 100 Each 0 09/05/2023 -- No Sig: Use as directed daily DX E11.9 Sent to pharmacy as: pen needle, diabetic 32 gauge x 5/32" (Aura Pen Needle) Class: eRX Order: [id number] Date/Time Signed: 09/05/2023 09:20 E-Prescribing Status: Receipt confirmed by pharmacy (09/05/2023 9:20 AM CDT) Notes: Recent Visits Date Type Provider Dept 11/04/23 Office Visit Allyn Franklin MD [facility] 06/10/23 Office Visit Allyn Franklin MD [facility] 02/18/23 Office Visit Allyn Franklin MD [facility] 12/03/22 Office Visit Allyn Franklin MD [facility] 09/21/22 Office Visit Allyn Franklin MD [facility] Showing recent visits within past 540 days with a meds authorizing provider and meeting all other requirements Future Appointments Date Type Provider Dept 05/11/24 Appointment Allyn Franklin MD [facility] Showing future appointments within next 150 days with a meds authorizing provider and meeting all other requirements Svitlana Zafar RN [facility] 2024-01-16 10:45:56 Images from the original note were not included. Notes: 02/04/24 Last Ref[facility]: [id number] [place], [place] - [address] [place] [address] AT [facility] Recent Visits Date Type Provider Dept 11/04/23 Office Visit Allyn Franklin MD [facility] 06/10/23 Office Visit Allyn Franklin MD [facility] 02/18/23 Office Visit Allyn Franklin MD [facility] 12/03/22 Office Visit Allyn Franklin MD [facility] 09/21/22 Office Visit Allyn Franklin MD [facility] Showing recent visits within past 540 days with a meds authorizing provider and meeting all other requirements Future Appointments Date Type Provider Dept 05/11/24 Appointment Allyn Franklin MD [facility] Showing future appointments within next 150 days with a meds authorizing provider and meeting all other requirements Name from pharmacy: MECLIZINE 12.5 MG TABLET Will file in chart as: MECLIZINE 12.5 mg tablet Possible duplicate: Hover to review recent actions on this medication Sig: TAKE 1 TABLET BY MOUTH 3 TIMES DAILY NEEDED FOR DIZZINESS. Disp: 30 tablet Refills: 0 (Pharmacy requested: Not specified) Start: 01/15/2024 Class: eRX For: Vertigo Last ordered: 2 months ago (11/04/2023) by Allyn Franklin MD Last refill: 11/04/2023 Rx #: [id number] Anti-nausea Sobkzx5101/15/2024 03:13 PM Protocol Details This refill cannot be delegated Manual Review: Women's Health providers only allowed to refill requests. Valid encounter within last 12 months [email or web address] [address] Charity Carreno MA [facility] 2024-01-16 10:45:14 Images from the original note were not included. Notes: 11/04/23 Last Refilled: [id number] [place], [place] - [address] [place] [address] Recent Visits Date Type Provider Dept 11/04/23 Office Visit Allyn Franklin MD [facility] 06/10/23 Office Visit Allyn Franklin MD [facility] 02/18/23 Office Visit Allyn Franklin MD [facility] 12/03/22 Office Visit Allyn Franklin MD [facility] 09/21/22 Office Visit Allyn Franklin MD [facility] Showing recent visits within past 540 days with a meds authorizing provider and meeting all other requirements Future Appointments Date Type Provider Dept 05/11/24 Appointment Allyn Franklin MD [facility] Showing future appointments within next 150 days with a meds authorizing provider and meeting all other requirements Name from pharmacy: MECLIZINE 12.5 MG TABLET Will file in chart as: MECLIZINE 12.5 mg tablet Possible duplicate: Hover to review recent actions on this medication Sig: TAKE 1 TABLET BY MOUTH 3 TIMES DAILY NEEDED FOR DIZZINESS. Disp: 30 tablet Refills: 0 (Pharmacy requested: Not specified) Start: 01/15/2024 Class: eRX For: Vertigo Last ordered: 2 months ago (11/04/2023) by Allyn Franklin MD Last refill: 11/04/2023 Rx #: [id number] Anti-nausea Vxjbud3501/15/2024 03:13 PM Protocol Details This refill cannot be delegated Manual Review: Women's Health providers only allowed to refill requests. Valid encounter within last 12 months [facility] be [facility] at: [id number] [place], [place] - [address] [place] [address] AT [facility] Charity Carreno MA [facility] 2023-11-24 10:45:00 Images from the original note were not included. Venipuncture collection performed by clean technique on the right hand. Total of 2 attempts were made. Slight pressure and a bandage/dressing were applied to the site(s). The patient experienced no complications. The following specimens were processed according to instructions and sent to [facility] laboratories per lab order on 11/24/2023 : LT BLUE SST 3 RED LAV PPT DK GREEN (LiHep) DK GREEN (SodH) CROWELL DK BLUE (K2) DK BLUE (S) ACD Blood Culture NIPT/NTD [facility] 2023-11-08 08:45:00 Patient presented with specimen for drop-off and was identified by and name. Collection information/ total volume were documented accordingly. The following specimens were sent to [facility] laboratories per lab order on 11/08/2023 : 24 hour urine Random urine 1 Stool Swab Other T [facility] 2023-11-04 16:45:00 Images from the original note were not included. Venipuncture collection performed by clean technique on the back of right hand. Total of 2 attempts were made. Slight pressure and a bandage/dressing were applied to the site(s). The patient experienced no complications. The following specimens were processed according to instructions and sent to [facility] laboratories per lab order on TODAY: LT BLUE SST RED LAV 1 PPT LT GREEN (LiHep) 1 DK GREEN (SodH) CROWELL DK BLUE (K2) DK BLUE (S) ACD Blood Culture NIPT/NTD Patient miss the urine collection container ,will recollect and bring another day T [facility] 2023-11-04 15:00:00 Addended by: ALLYN FRANKLIN on: 11/07/2023 01:04 PM Modules accepted: Orders [facility] 2023-11-04 15:00:00 Addended by: ALLYN FRANKLIN on: 11/10/2023 02:34 AM Modules accepted: Orders T [facility] 2023-11-04 15:00:00 Addended by: ALLYN FRANKLIN on: 11/28/2023 12:56 PM Modules accepted: Orders T [facility] 2023-09-13 08:36:11 Images from the original note were not included. Changes Requested Name from pharmacy: BUPROPION HCL 75 MG TABLET Will file in chart as: BUPROPION 75 mg tablet Possible duplicate: Horadha to review recent actions on this medication Sig: REJI MILLER DOS VECES AL SHEEBA Disp: 180 tablet Refills: 1 Start: 09/13/2023 Class: eRX For: Anxiety; Depression, unspecified depression type Last ordered: 1 week ago (09/05/2023) by Allyn Franklin MD Last refill: 09/05/2023 Rx #: [id number] Pharmacy comment: REQUEST FOR 90 DAYS PRESCRIPTION. DX Code Needed. Psychiatry: Antidepressants Gtoqdh6009/13/2023 08:33 AM Protocol Details Manual Review: Verify no changes in dose in the last 3 months Valid encounter within last 12 months This request has changes from the previous prescription. To be filled at: [facility]/pharmacy #[id number] - [address] Recent Visits Date Type Provider Dept 06/10/23 Office Visit Allyn Franklin MD [facility] 02/18/23 Office Visit Allyn Franklin MD [facility] 12/03/22 Office Visit Allyn Franklin MD [facility] 09/21/22 Office Visit Allyn Franklin MD [facility] Showing recent visits within past 540 days with a meds authorizing provider and meeting all other requirements Future Appointments Date Type Provider Dept 11/04/23 Appointment Allyn Franklin MD [facility] Showing future appointments within next 150 days with a meds authorizing provider and meeting all other requirements Becky Matthews LVN [facility] 2023-09-07 14:51:11 KATHIE 10/20/[address] Padilla pt does not have F/UP appt scheduled. Pt needs follow up appt for future refills Disp Refills Start End HERMINIO Insulin Glargine (BASAGLAR KWIKPEN U-100 INSULIN) 100 unit/mL (3 mL) injection This medication has been refilled for pt by Radha Reed on 09/06/2023 Emilee Meneses MA 09/07/2023 2:59 PM Emilee Meneses MA [facility] 2023-09-06 16:53:58 Medication has been refilled by another provider. Closing encounter. Requested Prescriptions Refused Prescriptions Disp Refills Insulin Glargine (BASAGLAR KWIKPEN U-100 INSULIN) 100 unit/mL (3 mL) injection 30 Each 0 Sig: INYECTE 66 UNITS UNDER THE SKIN TODOS LOS CARMONA Refused By: SARA GOLDSMITH Reason for Refusal: Duplicate Request [facility] 2023-09-06 16:47:18 Dr. Padilla, pt requesting refill. KATHIE 10/19/22. Per pt daughter, pt was to return to PCP for management due to A1c being better controlled. Pt PCP is out on maternity leave and they have been unable to get covering provider to send refill as it was last filled by you. Please advise and send refill if appropriate. [facility] 2023-09-06 16:28:04 Spoke with Sara Goldsmith LVN from Endo and per her he patient has not been seen recently enough with endo to have refills approved for insulin. Per most recent visit with Dr. Padilla patient was instructed to have PCP take back over diabetes management as A1c was under control. Please advise if we can refill the below medication. Outpatient Medication Detail Disp Refills Start End HERMINIO BASAGLAR KWIKPEN U-100 INSULIN 100 unit/mL (3 mL) injection 30 Each 1 05/06/2023 -- Yes Sig: INYECTE 66 UNITS UNDER THE SKIN TODOS LOS CARMNOA Sent to pharmacy as: Basaglar KwikPen U-100 Insulin 100 unit/mL (3 mL) subcutaneous Class: eRX Order: [id number] Date/Time Signed: 05/06/2023 15:12 E-Prescribing Status: Receipt confirmed by pharmacy (05/06/2023 3:12 PM OCCUPATIONAL NURSE) Order Associated Providers Name NPI Ordering Provider Danelle Padilla MD [[id number]] [id number] Authorizing Provider Danelle Padilla MD [[id number]] [id number] Order Mode Info Action Created on Order Mode Entered by Responsible Provider Signed by Signed on Ordering 05/06/23 1512 Ambulatory Guidelines Ayaka Tobin RN Pan, Wentong, MD Pan, Wentong, MD 06/07/23 1931 Pharmacy [facility] #[id number] Becky Matthews LVN [facility] 2023-09-05 09:20:28 Images from the original note were not included. Name from pharmacy: BUPROPION HCL 75 MG TABLET Will file in chart as: BUPROPION 75 mg tablet Sig: TOME EDISON TABLETA DOS VECES AL SHEEBA Disp: 180 tablet Refills: 0 (Pharmacy requested: Not specified) Start: 09/05/2023 Class: eRX For: Anxiety; Depression, unspecified depression type Last ordered: 2 months ago (06/10/2023) by Allyn Franklin MD Last refill: 06/10/2023 Rx #: [id number] Psychiatry: Antidepressants [id number]/05/2023 12:26 AM Protocol Details Manual Review: Verify no changes in dose in the last 3 months Valid encounter within last 12 months To be filled at: [facility] #[id number] 30 day supply sent Recent Visits Date Type Provider Dept 06/10/23 Office Visit Allyn Franklin MD [facility] 02/18/23 Office Visit Allyn Franklin MD [facility] 12/03/22 Office Visit Allyn Franklin MD [facility] 09/21/22 Office Visit Allyn Franklin MD [facility] Showing recent visits within past 540 days with a meds authorizing provider and meeting all other requirements Future Appointments Date Type Provider Dept 11/04/23 Appointment Allyn Franklin MD [facility] Showing future appointments within next 150 days with a meds authorizing provider and meeting all other requirements [facility] 2023-09-05 09:19:38 Images from the original note were not included. Insulin Seanor, Disposable, (AURA PEN NEEDLE) 32 gauge x 5/32" Ndle Sig: Use as directed daily DX E11.9 Disp: 100 Each Refills: 3 Start: 09/03/2023 Class: eRX Non-formulary For: Type 2 diabetes mellitus without complication, unspecified whether machine sorter insulin use Last ordered: 2 months ago (06/10/2023) by Allyn Franklin MD To be filled at: [facility] #[id number] AT [facility] This message is being sent by Angel Sanchez on behalf of Karina Osman Recent Visits Date Type Provider Dept 06/10/23 Office Visit Allyn Franklin MD [facility] 02/18/23 Office Visit Allyn Franklin MD [facility] 12/03/22 Office Visit Allyn Franklin MD [facility] 09/21/22 Office Visit Allyn Franklin MD [facility] Showing recent visits within past 540 days with a meds authorizing provider and meeting all other requirements Future Appointments Date Type Provider Dept 11/04/23 Appointment Allyn Franklin MD [facility] Showing future appointments within next 150 days with a meds authorizing provider and meeting all other requirements [facility] 2023-07-13 10:04:22 Disp Refills Start End HERMINIO Insulin Seanor, Disposable, (AURA PEN NEEDLE) 32 gauge x 5/32" Ndle 100 Each 3 06/10/2023 -- -- Sig: Use as directed daily DX E11.9 Sent to pharmacy as: pen needle, diabetic 32 gauge x 5/32" (Aura Pen Needle) Class: eRX Order: [id number] Date/Time Signed: 06/10/2023 15:26 E-Prescribing Status: Receipt confirmed by pharmacy (06/10/2023 3:26 PM OCCUPATIONAL NURSE) Duplicate request. Jerilyn Chandler MA 07/13/2023 10:04 AM PATIONAL NURSE Jerilyn Chandler MA [facility] 2023-03-11 10:22:50 Formatting of this n ote might be different from the original. Will be closing encounter due to medication being switched and taken care of. T [facility] 2023-03-02 10:22:33 Formatting of this n ote might be different from the original. KATHIE 10/19/22 NOV None - reduce Basaglar insulin 66 units daily Prescription resent as Basaglar per patient request T Juan Valverde RN [facility] 2023-02-25 17:11:57 Formatting of this n ote might be different from the original. We switched to Tresiba. Dr. Kinga Keyes T [facility] 2023-02-24 16:01:01 Formatting of this n ote might be different from the original. Lantus is not covered by insurance per pharmacy Ayaka Manuel [facility] 2023-02-23 12:43:06 Formatting of this n ote might be different from the original. Looks like Dr. Padilla ordered Tresiba two days ago (switching from Lantus). Dr. Kinga Keyes [facility] 2023-02-22 16:05:21 Formatting of this n ote might be different from the original. Please review and advise T [facility] 2023-02-22 14:39:44 Formatting of this n ote might be different from the original. Pharm is calling Lantus is not covered Ayaka Manuel [facility] 2023-02-21 09:55:50 Formatting of this n ote might be different from the original. Hi Dr. Padilla, Pt is taking Lantus 66 u QD, and insurance would like to switch it to Tresiba. Would you recommend starting 20% higher, or keeping the same dose? Best, Dr. Franklin [facility] 2023-02-21 09:33:49 Formatting of this n ote might be different from the original. NOV: 03/25/23 KATHIE: 10/19/22 Refill sent [facility] 2023-02-21 07:47:54 Formatting of this n ote is different from the original. Images from the original note were not included. Pharmacy comment: Alternative Requested:THE PRESCRIBED MEDICATION IS NOT COVERED BY INSURANCE. PLEASE CONSIDER CHANGING TO ONE OF THE SUGGESTED COVERED ALTERNATIVES. All Pharmacy Suggested Alternatives: insulin degludec (TRESIBA FLEXTOUCH U-100) 100 unit/mL (3 mL) InPn insulin detemir U-100 (LEVEMIR U-100 INSULIN) 100 unit/mL injection Insulin Detemir (LEVEMIR FLEXPEN) 100 unit/mL (3 mL) injection insulin degludec (TRESIBA U-100 INSULIN) 100 unit/mL Soln Insulin Glargine (BASAGLAR KWIKPEN U-100 INSULIN) 100 unit/mL (3 mL) injection To prescribe one of the alternatives listed above, open the encounter and click Replace. Open Encounter Endocrinology: Diabetes - Insulins Failed 02/19/2023 10:24 AM Protocol Details Manual review: Staff refilling for [facility], Cr lab not required to refill Valid encounter within last 12 months HBA1C within 180 days Cr in normal range and within 360 days This request has changes from the previous prescription. Please review and advise Recent Visits Date Type Provider Dept 02/18/23 Office Visit Allyn Franklin MD [facility] 12/03/22 Office Visit Allyn Franklin MD [facility] 09/21/22 Office Visit Allyn Franklin MD [facility] Showing recent visits within past 540 days with a meds authorizing provider and meeting all other requirements Future Appointments Date Type Provider Dept 05/27/23 Appointment Allyn Franklin MD [facility] Showing future appointments within next 150 days with a meds authorizing provider and meeting all other requirements [facility] 2023-02-18 15:00:00 Addended by: Everette FRANKLIN on: 02/23/2023 05:11 PM Modules accepted: Orders [facility]
[2025-02-10 11:23] LABS: Anion Gap 8.3 mEq/L (5.0-15.0); Potassium 4.3 mEq/L (3.5-5.1)
[2025-02-10 11:24] LABS: BUN Blood Urea Nitrogen 24.0 mg/dL (7-18); Glucose Level 90.0 mg/dL (74-106)
--- NOTE | 2025-02-10 13:27 | ER ---
Nurse's Notes [facility] Name: Karina Jimenez Age: 79 yrs Sex: Female : 1945 Arrival Date: 02/10/2025 Time: 10:56 Bed 19 Private MD: Diagnosis: Hypoglycemia, unspecified Presentation: 02/10 11:00 Chief complaint: EMS states: Hypoglycemia. cf3 11:00 Coronavirus screen: At this time, the client does not indicate any symptoms associated cf3 with coronavirus-19. Ebola Screen: No symptoms or risks identified at this time. Initial Sepsis Screen: Does the patient meet any 2 criteria? No. Patient's initial sepsis screen is negative. Does the patient have a suspected source of infection? No. Patient's initial sepsis screen is negative. Risk Assessment: Do you want to hurt yourself or someone else? Patient reports no desire to harm self or others. Onset of symptoms was February 10, 2025 at 10:30. Care prior to arrival: Medication(s) given: D10w 12.5g IV initiated. 20 GA, in the right antecubital area, Glucose check: 25. 11:00 Method Of Arrival: EMS: [facility] cf3 11:00 Acuity: JESICA 4 cf3 Triage Assessment: 11:13 General: Appears in no apparent distress. comfortable, Behavior is calm, cooperative. cf3 Pain: Denies pain. Neuro: Bella Agitation-Sedation Scale (RASS): 0 - Alert and Calm Level of Consciousness is awake, alert, obeys commands, Oriented to person, place, time, situation. Cardiovascular: Capillary refill < 3 seconds Patient's skin is warm and dry. Respiratory: Airway is patent. Historical: - Allergies: 11:13 No Known Allergies; cf3 - PMHx: 11:13 Depression; Diabetes - IDDM; Hyperlipidemia; Hypertension; cf3 - PSHx: 11:13 Cholecystectomy; cf3 - Immunization history:: Adult Immunizations up to date. - Infectious Disease History:: Denies. - Family history:: not pertinent. - Social history:: Smoking status: Patient denies any tobacco usage or history of. - Hospitalizations: : No recent hospitalization is reported. Screenin:52 [facility] ED Fall Risk Assessment (Adult) History of falling in the last 3 months, cf3 including since admission No falls in past 3 months (0 pts) Confusion or Disorientation No (0 pts) Intoxicated or Sedated No (0 pts) Impaired Gait No (0 pts) Mobility Assist Device Used No (0 pt) Altered Elimination No (0 pt) Score/Fall Risk Level 0 - 2 = Low Risk Oriented to surroundings, Maintained a safe environment, Educated pt \T\ family on fall prevention, incl call for assistance when getting out of bed. Abuse screen: Denies threats or abuse. Denies injuries from another. Nutritional screening: No deficits noted. Tuberculosis screening: No symptoms or risk factors identified. Assessment: 12:01 Reassessment: See triage assessment. cf3 Vital Signs: 11:00 BP 129 / 54; Pulse 82; Resp 18; Temp 98.1(O); Pulse Ox 100% ; Weight 61.23 kg; Height 5 cf3 ft. 2 in. ; 12:00 BP 125 / 59; Pulse 82; Resp 16; Pulse Ox 99% on R/A; cf3 13:00 BP 104 / 64; Pulse 82; Resp 16; Pulse Ox 99% on R/A; cf3 14:00 BP 133 / 57; Pulse 80; Resp 16; Pulse Ox 100% on R/A; cf3 11:00 Body Mass Index 24.69 (61.23 kg, 157.48 cm) cf3 ED Course: 10:58 Patient arrived in ED. em1 10:59 Juve Mustafa MD is Attending Physician. rn 11:00 Jay Pierce, JONATHAN is Primary Nurse. cf3 11:00 Arm band placed on right wrist. Patient placed in an exam room. cf3 11:00 Patient has correct armband on for positive identification. Bed in low position. Call cf3 light in reach. Side rails up X2. 11:00 Client placed on continuous cardiac and pulse oximetry monitoring. NIBP monitoring cf3 applied. Diet: PO challenge, patient ate 1 sandwich and drank 240mL orange juice. 11:06 No provider procedures requiring assistance completed. Maintain EMS IV. Dressing cf3 intact. Good blood return noted. Site clean \T\ dry. Gauge \T\ site: 20g L AC. Flushed with 10 mL NS. 11:07 glucometer results - FOR PT WITH NO ID Sent. cf3 11:13 Triage completed. cf3 13:26 Juve Mustafa MD is Referral Physician. rn 13:26 Referral Physician role handed off by Juve Mustafa MD rn 14:14 IV discontinued, intact, bleeding controlled, No redness/swelling at site. Pressure cf3 dressing applied. Administered Medications: No medications were administered Medication: 11:56 VIS not applicable for this client. cf3 Point of Care Testing: Blood Glucose: 10:57 Blood Glucose: 94 mg/dL; cf3 11:49 Blood Glucose: 115 mg/dL; cf3 13:22 Blood Glucose: 122 mg/dL; cf3 Ranges: Outcome: : Discharge ordered by . rn 14:13 Discharged to home via wheelchair, cf3 14:13 Condition: improved 14:13 Discharge instructions given to family, Instructed on discharge instructions, follow up and referral plans. Demonstrated understanding of instructions, follow-up care, 14:15 Patient left the ED. cf3 Signatures: Juve Mustafa MD MD rn Craig Johnson Cameron RN RN cf3
--- NOTE | 2025-02-10 13:27 | EDPHYS ---
Physician Documentation [facility] Name: Karina Jimenez Age: 79 yrs Sex: Female : 1945 Arrival Date: 02/10/2025 Time: 10:56 Bed 19 Private MD: ED Physician Juve Mustafa HPI: 02/10 11:08 This 79 yrs old Female presents to ER via Unassigned with complaints of low rn blood sugar. 11:08 EMS reports called out for low blood sugar and altered mental status. Patient was awake rn but minimally responsive to voice. Has had multiple hypoglycemic episodes in the past. Takes Lantus in addition to Mounjaro. Patient reports did not eat much last night prior to going to bed, did not eat much this morning and took her insulin at 9 AM. D10 given by EMS with glucose going up to 170, now 120. Patient states feels completely fine. Has no complaints. Denies any chest pain or abdominal pain. No recent illness or fever.. Historical: - Allergies: 11:13 No Known Allergies; cf3 - PMHx: 11:13 Depression; Diabetes - IDDM; Hyperlipidemia; Hypertension; cf3 - PSHx: 11:13 Cholecystectomy; cf3 - Immunization history:: Adult Immunizations up to date. - Infectious Disease History:: Denies. - Family history:: not pertinent. - Social history:: Smoking status: Patient denies any tobacco usage or history of. - Hospitalizations: : No recent hospitalization is reported. ROS: 11:08 Constitutional: Negative for fever, chills, and weight loss, Eyes: Negative for injury, rn pain, redness, and discharge, ENT: Negative for injury, pain, and discharge, Neck: Negative for injury, pain, and swelling, Cardiovascular: Negative for chest pain, palpitations, and edema, Respiratory: Negative for shortness of breath, cough, wheezing, and pleuritic chest pain, Abdomen/GI: Negative for abdominal pain, nausea, vomiting, diarrhea, and constipation, Back: Negative for injury and pain, MS/Extremity: Negative for injury and deformity, Skin: Negative for injury, rash, and discoloration, Neuro: Negative for headache, weakness, numbness, tingling, and seizure, Exam: 11:08 Constitutional: This is a well developed, well nourished patient who is awake, alert, rn and in no acute distress. Head/Face: Normocephalic, atraumatic. Cardiovascular: Regular rate and rhythm. No pulse deficits. Respiratory: No increased work of breathing, no retractions or nasal flaring. Abdomen/GI: Soft, non-tender MS/ Extremity: Pulses equal, no cyanosis Neuro: Awake and alert, GCS 15, oriented to person, place, time, and situation. Cranial nerves II-XII grossly intact. Motor strength 5/5 in all extremities. Sensory grossly intact. Cerebellar exam normal. Vital Signs: 11:00 BP 129 / 54; Pulse 82; Resp 18; Temp 98.1(O); Pulse Ox 100% ; Weight 61.23 kg; Height 5 cf3 ft. 2 in. ; 12:00 BP 125 / 59; Pulse 82; Resp 16; Pulse Ox 99% on R/A; cf3 13:00 BP 104 / 64; Pulse 82; Resp 16; Pulse Ox 99% on R/A; cf3 14:00 BP 133 / 57; Pulse 80; Resp 16; Pulse Ox 100% on R/A; cf3 11:00 Body Mass Index 24.69 (61.23 kg, 157.48 cm) cf3 MDM: 10:59 Medical Screening Exam initiated rn 13:24 Differential diagnosis: hypoglycemic episode. Data reviewed: vital signs, nurses notes, rn and as a result, I will discharge patient. 13:25 Counseling: I had a detailed discussion with the patient and/or guardian regarding the rn historical points, exam findings, and any diagnostic results supporting the discharge/admit diagnosis, lab results, the need for outpatient follow up, to return to the emergency department if symptoms worsen or persist or if there are any questions or concerns that arise at home. Response to treatment: the patient's symptoms have markedly improved after treatment, the patient's condition has returned to base line, the patient is now symptom free, and as a result, I will discharge patient. Special discussion: I discussed with the patient/guardian in detail that at this point there is no indication for admission to the hospital. It is understood, however, that if the symptoms persist or worsen the patient needs to return immediately for re-evaluation. Based on the history and exam findings, there is no indication for further emergent testing or inpatient evaluation. I discussed with the patient/guardian the need to see the primary care provider for further evaluation of the symptoms. Endocrinology. ED course: Patient is back to baseline, glucose remains steadily above 100 after p.o. intake. Has not required any other medication. Spoke at length with patient and family members regarding nighttime snack. It seems that patient is eating dinner around 5 or 6 PM and does not eat again until the morning and her hypoglycemic episodes are happening landman. They have just decreased her insulin dose by 10 units 1 week ago and has appointment with endocrine coming up. I have personally reviewed all of the results, including but not limited to blood tests deemed necessary to safely discharge this patient at this time. All results given to and printed out for patient. I personally went over all the results with the patient and answered all questions. Patient will follow-up with PCP and or specialist as discussed. Return precautions given and understood.. 02/10 10:59 Order name: glucometer results - FOR PT WITH NO ID em1 02/10 10:59 Order name: BMP; Complete Time: 13:02 rn 02/10 12:01 Order name: Glucose, Ancillary Testing; Complete Time: 13:02 [facility] 02/10 13:34 Order name: Glucose, Ancillary Testing [facility] 02/10 10:59 Order name: IV Start; Complete Time: 11:01 rn 02/10 10:59 Order name: PO challenge; Complete Time: 11:01 rn 02/10 13:03 Order name: Glucose Level; Complete Time: 13:29 rn Administered Medications: No medications were administered Point of Care Testing: Blood Glucose: 10:57 Blood Glucose: 94 mg/dL; cf3 11:49 Blood Glucose: 115 mg/dL; cf3 13:22 Blood Glucose: 122 mg/dL; cf3 Ranges: Critical Glucose Levels:Adult <50 mg/dl or >400 mg/dl <40 mg/dl or >180 mg/dl Disposition Summary: 02/10/25 13:26 Discharge Ordered Notes: Location: Home rn Problem: new rn Symptoms: have improved rn Condition: Stable rn Diagnosis - Hypoglycemia, unspecified rn Followup: rn - With: Private Physician - When: As needed - Reason: Recheck today's complaints, Re-evaluation by your physician Discharge Instructions: - Discharge Summary Sheet rn - Hypoglycemia rn - Blood Glucose Monitoring, Adult rn Forms: - Medication Reconciliation Form rn - Antibiotic rn peritoneal dialysis - Prescription Opioid Use rn - Patient Portal Instructions rn - Leadership Thank You Letter rn Signatures: DispatchJuve Caro MD MD rn Fitzwater, Cameron, RN RN cf3
[2025-02-10 17:52] VITALS: TEMP 98.1
[2025-02-10 18:00] VITALS: BP 133/57; O2SAT 100
== END 2025-02-10 14:15 | disposition home or self-care (01) ==
LOC: ER 10:56
DX: E11.649 Type 2 diabetes mellitus with hypoglycemia without coma (principal)
CPT/HCPCS: 36415; 80048; 82947; 99284